=== PATIENT | female | born 1960 | race Caucasian/White ===

== ENCOUNTER 2017-10-07 15:10 | Observation (INO) | payer OTHER ==
[~2017-10-07] VITALS: Ht 160 cm; Wt 115.2 kg
[~2017-10-07 15:10] MED LIST: GABAPENTIN100 MG PO; HAIR, SKIN & N1 EACH PO; MULTI-VITAMIN1 EACH PO; PANTOPRAZOLE SO40 MG PO; PROZAC20 MG PO; VITAMIN C1000 MG PO; VITAMIN E400 UNI2 PO
[2017-10-07] MEDS ORDERED: ASPIRIN 81 MG CHEW TAB PO ONE ×3 (15:30→19:30)
[2017-10-07] MEDS ORDERED: NITROGLYCERIN 0.4 MG SUBL SL PRN ×2 (15:45→19:30)
[2017-10-07 15:46] LABS: BASOPHILS # (AUTO) 0.1 (0.0-0.1); EOSINOPHILS # (AUTO) 0.2 (0.0-0.4); EOSINOPHILS % 2.2 % (0.0-6.0); HEMATOCRIT 40.8 % (34.2-44.1); HEMOGLOBIN 13.9 g/dL (12.0-16.0); LYMPHOCYTES # (AUTO) 2.5 (1.0-3.2); LYMPHOCYTES % 27.8 % (18.0-39.1); MEAN CORPUSCULAR HEMOGLOBIN 33.2 pg (28-32); MEAN CORPUSCULAR HGB CONC 34.1 g/dL (31-35); MEAN CORPUSCULAR VOLUME 97.4 fL (81-99); MONOCYTES # (AUTO) 1.1 (0.2-0.8); MONOCYTES % 12.1 % (4.4-11.3); NEUTROPHILS # (AUTO) 5.2 (2.1-6.9); NEUTROPHILS % 56.7 % (38.7-80.0); PLATELET COUNT 298 x10e3/uL (140-360); RED BLOOD COUNT 4.19 x10e6/uL (3.6-5.1)
[2017-10-07 15:54] LABS: INR 0.82; PARTIAL THROMBOPLASTIN TIME 25.8 seconds (23.8-35.5); PROTHROMBIN TIME 11.7 seconds (11.9-14.5)
[2017-10-07 16:02] LABS: ALANINE AMINOTRANSFERASE 29 IU/L (0-55); ALBUMIN 3.8 g/dL (3.5-5.0); ALBUMIN/GLOBULIN RATIO 0.9 (0.8-2.0); ALKALINE PHOSPHATASE 114 IU/L (40-150); BLOOD UREA NITROGEN 16 mg/dL (7-26); BUN/CREATININE RATIO 20 (6-25); CALCIUM 9.7 mg/dL (8.4-10.2); CARBON DIOXIDE 28 mmol/L (22-29); CHLORIDE 107 mmol/L (98-107); CREATINE KINASE 100 IU/L (29-168); CREATININE, SERUM 0.81 mg/dL (0.57-1.11); EST GLOMERULAR FILTRATION RATE > 60 ML/MIN (60-); GLUCOSE 91 mg/dL (74-118); LIPASE 39 U/L (8-78); SODIUM 143 mmol/L (136-145)
--- NOTE | 2017-10-07 16:22 | Diagnostic Imaging Report ---
PROCEDURE: Frontal and lateral views of the chest. COMPARISON: None. INDICATIONS: SOB, LIGHTHEADED FINDINGS: Lines/tubes: None. Lungs: The lungs are well inflated and clear. There is no evidence of pneumonia or pulmonary edema. Pleura: There is no pleural effusion or pneumothorax. Heart and mediastinum: The heart and the mediastinum are normal. Bones: No acute bony abnormality. IMPRESSION: 1. No acute cardiopulmonary abnormality. Arden Barron M.D. Dictated by: Arden Barron M.D. on 10/07/2017 at 16:30 Electronically approved by: Arden Barron M.D. on 10/07/2017 at 16:30
[2017-10-07] MEDS ORDERED: ONDANSETRON HCL INJ 2 MG/ML VIAL IV STA (16:53)
[2017-10-07] MEDS ORDERED: MORPHINE SULFATE 5 MG/ML VIAL IV PRN (17:00)
[2017-10-07 18:14] LABS: CREATINE KINASE MB 1.1 ng/mL (0.00-5.00)
[2017-10-07] MEDS ORDERED: SODIUM CHLORIDE FLUSH 10 ML SYR INJ PRN (19:30)
[2017-10-07] MEDS: METOPROLOL TARTRATE 25 MG TAB PO SCH (20:26)
[2017-10-07 21:00] VITALS: BP 120/78
[2017-10-07 22:12] VITALS: BP 120/78
[2017-10-07] MEDS ORDERED: FLUOXETINE HCL 20 MG CAP PO ONE (22:15)
[2017-10-07] MEDS ORDERED: PANTOPRAZOLE SOD 40 MG TABEC PO ONE (22:15)
[2017-10-07] MEDS: MORPHINE SULFATE 5 MG/ML VIAL IV PRN (22:46)
[2017-10-08] VITALS: BP 110/54
[2017-10-08 01:41] LABS: CREATINE KINASE MB 0.8 ng/mL (0.00-5.00)
[2017-10-08] MEDS: MORPHINE SULFATE 5 MG/ML VIAL IV PRN ×5 (02:31→22:48)
[2017-10-08 04:00] VITALS: BP 97/55
[2017-10-08 06:22] LABS: BASOPHILS # (AUTO) 0.1 (0.0-0.1); BASOPHILS % 1.3 % (0.0-1.0); EOSINOPHILS # (AUTO) 0.2 (0.0-0.4); EOSINOPHILS % 3.3 % (0.0-6.0); HEMATOCRIT 36.9 % (34.2-44.1); HEMOGLOBIN 12.3 g/dL (12.0-16.0); LYMPHOCYTES # (AUTO) 2.3 (1.0-3.2); LYMPHOCYTES % 37.9 % (18.0-39.1); MEAN CORPUSCULAR HEMOGLOBIN 32.9 pg (28-32); MEAN CORPUSCULAR HGB CONC 33.3 g/dL (31-35); MEAN CORPUSCULAR VOLUME 98.7 fL (81-99); MONOCYTES # (AUTO) 0.8 (0.2-0.8); MONOCYTES % 13.8 % (4.4-11.3); NEUTROPHILS # (AUTO) 2.7 (2.1-6.9); NEUTROPHILS % 43.5 % (38.7-80.0); PLATELET COUNT 266 x10e3/uL (140-360); RED BLOOD COUNT 3.74 x10e6/uL (3.6-5.1); RED CELL DISTRIBUTION WIDTH 13.2 % (11.7-14.4)
[2017-10-08 06:44] LABS: ALANINE AMINOTRANSFERASE 23 IU/L (0-55); ALBUMIN 3.3 g/dL (3.5-5.0); ALBUMIN/GLOBULIN RATIO 0.9 (0.8-2.0); ALKALINE PHOSPHATASE 92 IU/L (40-150); ANION GAP 12.3 mmol/L (8-16); BLOOD UREA NITROGEN 20 mg/dL (7-26); BUN/CREATININE RATIO 25 (6-25); CALCIUM 9.4 mg/dL (8.4-10.2); CARBON DIOXIDE 27 mmol/L (22-29); CHLORIDE 107 mmol/L (98-107); CHOL/HDL RATIO 2.6 (3.0-3.6); CHOLESTEROL 177 MD/DL (0-199); CREATININE, SERUM 0.81 mg/dL (0.57-1.11); EST GLOMERULAR FILTRATION RATE > 60 ML/MIN (60-); GLUCOSE 88 mg/dL (74-118); HDL CHOLESTEROL 69 MG/DL (40-60); LDL CHOLESTEROL 98 MG/DL (60-130); POTASSIUM 4.3 mmol/L (3.5-5.1); SODIUM 142 mmol/L (136-145); TRIGLYCERIDES 49 MG/DL (0-149)
[2017-10-08 07:06] LABS: CHOL/HDL RATIO 2.6 (3.0-3.6)
[2017-10-08] MEDS: METOPROLOL TARTRATE 25 MG TAB PO SCH ×2 (07:30→21:00)
[2017-10-08 07:48] VITALS: BP 104/48
--- NOTE | 2017-10-08 08:10 | History and Physical ---
PRIMARY CARE PHYSICIAN: Dr. Milsl. HIGH PRESSURE OPERATOR: Dr. Agustin. CHIEF COMPLAINT: Chest pain. HISTORY OF PRESENT ILLNESS: This is a 57-year-old woman with a history of gastritis and GERD, who also has had neuropathy of the left leg with some discomfort in the left-side back region and now developing substernal chest pain/chest palpitation also described as heaviness with associated shortness of breath and dizziness. Her last stress test was in 2014, which she states was negative. Cardiac enzymes obtained here are negative x2. Her LDL is 98. Triglyceride is 49. She is admitted for further evaluation and management. PAST MEDICAL HISTORY: Gastritis, GERD, lower extremity neuropathy, obesity status post gastric sleeve, generalized anxiety disorder. PAST SURGICAL HISTORY: Cholecystectomy, hysterectomy, gastric sleeve. ALLERGIES: PER THE ELECTRONIC MEDICAL RECORDS. FAMILY HISTORY/SOCIAL HISTORY: Patient is . She has 2 children. No alcohol, illicit drugs or cigarettes. MEDICATIONS: Per the electronic medical records. Reviewed. REVIEW OF SYSTEMS: Denies any leg pain. Denies any fever, chills, sweats. VITAL SIGNS: Have been reviewed. PHYSICAL EXAMINATION GENERAL APPEARANCE: A tired-appearing woman resting in bed. HEENT: Anicteric. Pupils responsive to light. No oral lesions. CARDIOVASCULAR: Normal S1/S2. LUNGS: Moderate breath sounds, no wheezing. ABDOMEN: She has epigastric tenderness with deep palpation. No rebound or guarding. EXTREMITIES: No edema or calf tenderness. NEUROLOGICALLY: Alert and oriented x3. Moving all extremities. SKIN: Dry. PSYCHIATRIC: Normal affect. LABS: Reviewed. ASSESSMENT AND PLAN: This is a 57-year-old woman. 1. Substernal chest pain. Cardiac enzymes are negative x2. LDL is 98 and triglyceride 49. She has had a stress test about 3 years ago, which she states was negative. This likely could be gastritis-related or GERD-related. However, considering that it is substernal and associated with dizziness and shortness of breath, we will consult Cardiology and obtain 2-D echocardiogram. If these tests are negative, patient will need to follow up outpatient with a stave bolt equalizer. 2. Gastritis/gastroesophageal reflux disease. We will continue PPI. We will add sucralfate and TUMS. 3. Epigastric discomfort. Likely gastritis and GERD. Will treat as noted above. 4. Morbid obesity. BMI 45.0. She has had a gastric sleeve in the past. Will obtain a lipid panel and hemoglobin A1c. 5. Generalized anxiety disorder. Continue Prozac. 6. Neuropathy. Continue gabapentin. 7. Prophylaxis. PPI and Lovenox. 8. Disposition. Cardiology consultation and echocardiogram. Job#: [id number] EV
[2017-10-08] MEDS: ASPIRIN 81 MG ENTERIC COATED PO SCH (08:37)
[2017-10-08] MEDS: PANTOPRAZOLE SOD 40 MG TABEC PO SCH (08:37)
[2017-10-08] MEDS: FAMOTIDINE 20 MG/2 ML VIAL IV SCH ×2 (08:37→17:44)
[2017-10-08] MEDS: SUCRALFATE 1 GM TAB PO SCH ×4 (08:37→21:00)
[2017-10-08] MEDS: GABAPENTIN 100 MG CAP PO SCH (08:37)
[2017-10-08] MEDS: FLUOXETINE HCL 20 MG CAP PO SCH (08:37)
[2017-10-08] MEDS: MULTIVITAMINS/MINERALS TAB PO SCH (08:37)
[2017-10-08] MEDS: CALCIUM CARBONATE 500 MG CHEWABLE TABS PO SCH ×3 (08:37→21:00)
[2017-10-08 11:48] VITALS: BP 109/56
[2017-10-08 11:57] LABS: CREATINE KINASE MB 1.3 ng/mL (0.00-5.00)
[2017-10-08] MEDS: ONDANSETRON HCL INJ 2 MG/ML VIAL IV PRN ×2 (12:05→17:06)
--- NOTE | 2017-10-08 14:39 | Consultation ---
DATE OF CONSULTATION: October 08, 2017 CARDIOLOGY CONSULTATION REASON FOR CONSULTATION: Chest pain and palpitations. HISTORY OF PRESENT ILLNESS: Ms. Villagran is a 57-year-old female without any significant cardiac problems, nonsmoker, who comes in with almost constant pain for the last 3 days in her chest. She is saying it is worse when she moves her chest from side to side or lies down. Her cardiac enzymes are negative. She had a stress test done 2 years ago which was normal. PAST MEDICAL HISTORY: As listed above. Additionally, the patient has obesity, history of status post gastric sleeve, anxiety disorder and reflux disease. SURGICAL HISTORY: Includes cholecystectomy, gastric sleeve and hysterectomy. REVIEW OF SYSTEMS: Negative except as dictated in the history of present illness. PHYSICAL EXAMINATION: VITALS: Afebrile. Heart rate 71. Blood pressure 104/48. O2 sat is 95%. CARDIOVASCULAR: Regular rhythm. No murmurs or gallops. LUNGS: Clear to auscultation bilaterally. ABDOMEN: Soft, mildly distended. Telemetry shows sinus rhythm. EKG shows sinus rhythm. Chest x-ray is normal. Cardiac enzymes are negative. Remaining labs were reviewed. ASSESSMENT: Atypical chest pain. RECOMMENDATION: Ms. Villagran has been ruled out for myocardial infarction. She plans to follow up in the office for further evaluation including outpatient nuclear stress test as well as echocardiogram. I thank Dr. Jenkins for this consultation. Job#: [id number] EV
[2017-10-08 15:57] VITALS: BP 156/76
[2017-10-08] MEDS ORDERED: ENOXAPARIN SOD INJ 40 MG/0.4 ML SYR SC SCH (17:00)
[2017-10-08] MEDS ORDERED: ACETAMIN/BUTALBITAL/CAFFEINE TAB PO PRN (18:00)
[2017-10-08 20:00] VITALS: BP 143/65
[2017-10-09] VITALS: BP 111/56
[2017-10-09 00:43] VITALS: BP 143/65
[2017-10-09 04:00] VITALS: BP 110/58
[2017-10-09] MEDS: METOPROLOL TARTRATE 25 MG TAB PO SCH (07:30)
[2017-10-09 08:14] VITALS: BP 88/54
[2017-10-09] MEDS: MULTIVITAMINS/MINERALS TAB PO SCH (09:00)
[2017-10-09] MEDS: SUCRALFATE 1 GM TAB PO SCH (09:00)
[2017-10-09] MEDS: PANTOPRAZOLE SOD 40 MG TABEC PO SCH (09:01)
[2017-10-09] MEDS: GABAPENTIN 100 MG CAP PO SCH (09:01)
[2017-10-09] MEDS: ASPIRIN 81 MG ENTERIC COATED PO SCH (09:01)
[2017-10-09] MEDS: FAMOTIDINE 20 MG/2 ML VIAL IV SCH (09:01)
[2017-10-09] MEDS: CALCIUM CARBONATE 500 MG CHEWABLE TABS PO SCH (09:04)
[2017-10-09] MEDS: FLUOXETINE HCL 20 MG CAP PO SCH (09:16)
[2017-10-09] MEDS ORDERED: ASPIRIN EC81 MG PO (09:22)
[2017-10-09] MEDS ORDERED: CARAFATE1 GM PO (09:22)
[2017-10-09] MEDS ORDERED: LOPRESSOR25 MG PO (09:22)
[2017-10-09] MEDS ORDERED: Calcium Carbonate 500MG Chew PO (09:22)
[2017-10-09 10:08] VITALS: BP 88/54
--- NOTE | 2017-10-26 09:10 | Discharge Summary ---
PRINCIPAL DIAGNOSES: 1. Atypical chest pain. 2. Gastritis. 3. Gastroesophageal reflux disease. 4. Epigastric discomfort. 5. Morbid obesity. Body mass index 45.0. 6. Generalized anxiety. 7. Neuropathy. SECONDARY DIAGNOSIS: Gastroesophageal reflux disease. CHIEF COMPLAINT: Chest pain. HISTORY OF PRESENT ILLNESS: This is a 57-year-old woman developing chest pain. Please refer to the H and P for further details. HOSPITAL COURSE: Patient had substernal chest pain. Cardiac enzymes were negative. LDL 98, triglycerides 49. Patient had stress test 3 years ago. Patient also has gastritis and GERD symptoms with epigastric discomfort, received sucralfate and PPI and Tums. Patient had morbid obesity, BMI 45.0. Also had generalized anxiety, treated with Prozac. Evaluated by cardiology and recommended for followup outpatient for echocardiogram and stress testing. Hemoglobin A1c was 5.1, does not have diabetes. LDL was 99. CONDITION ON DISCHARGE: Stable and improving. DISCHARGE LOCATION: Home. FOLLOWUP: 1. With primary care doctor in [address] Parish of cardiology in 1 week. 3. Followup stress test and echocardiogram. NARDA YUSUF MD Job#: [id number]
== END 2017-10-09 10:42 | disposition home or self-care (01) ==
LOC: ER 15:10 → ERHOLD 19:34 → MED/SURG 20:29
PROVIDERS: ADMIT Internal Medicine; ATTEND Internal Medicine
DX: R07.89 Other chest pain (principal); R00.2 Palpitations; K29.70 Gastritis, unspecified, without bleeding; K21.9 Gastro-esophageal reflux disease without esophagitis; G57.82 Other specified mononeuropathies of left lower limb; E66.01 Morbid (severe) obesity due to excess calories; F41.1 Generalized anxiety disorder; Z68.42 Body mass index [BMI] 45.0-49.9, adult; Z98.84 Bariatric surgery status
CPT/HCPCS: 36415 ×2; 71046; 80053 ×2; 80061; 82550 ×2; 82553 ×2; 83036; 83690; 83880; 84484 ×2; 85025 ×2; 85610; 85730; 87400; 93005; 93306 ×2; 99284; G0378 ×3; J1650; J2270 ×2; J2405 ×2

== ENCOUNTER 2018-01-18 08:42 | Emergency (ER) | payer OTHER ==
[~2018-01-18] VITALS: Ht 160 cm; Wt 115.2 kg
[~2018-01-18 08:42] MED LIST changes: +ASPIRIN EC81 MG PO; +CARAFATE1 GM PO; +Calcium Carbonate 500MG Chew PO; +LOPRESSOR25 MG PO
--- OUTSIDE RECORDS SUMMARY | 2018-01-18 08:46 | XMS REPORT ---
Author Author [facility] Address Unknown Phone Unavailable Care Team Providers Care Pigment Processor Name Role Phone BRENDEN STONE Unavailable Unavailable Problems This patient has no known problems. Allergies, Adverse Reactions, Alerts This patient has no known allergies or adverse reactions. Medications This patient has no known medications. Results Test Description Test Time Test Comments Text Results Atomic Results Result Comments CHEST 2 VIEWS [place] [address] Patient Name: ISAI VEGA MR #: [id number] : 1960 Age/Sex: 57/F Req #: [id number] Adm Physician: Ordered by: BRENDEN STONE MD Report #: [id number] Location: ER Room/Bed: Procedure: [id number] DX/CHEST 2 VIEWS Exam Date: 10/07/17 Exam Time: 1550 REPORT STATUS: Signed PROCEDURE: Frontal and lateral views of the chest. COMPARISON: None. INDICATIONS: SOB, LIGHTHEADED FINDINGS: Lines/tubes: None. Lungs: The lungs are well inflated and clear. There is no evidence of pneumonia or pulmonary edema. Pleura : There is no pleural effusion or pneumothorax. Heart and mediastinum: The heart and the mediastinum are normal. Bones: No acute bony abnormality. IMPRESSION: 1. No acute cardiopulmonary abnormality. Vanesa Barron M.D. Dictated by: Vanesa Barron M.D. on 10/07/2017 at 16:30 Electronically approved by: Vanesa Barron M.D. on 10/07/2017 at 16:30 Dictated By: VANESA BARRON MD 1630 Transcribed By: KEYONNA on 10/07/17 1630 COPY TO: BRENDEN STONE MD
--- OUTSIDE RECORDS SUMMARY | 2018-01-18 08:46 | XMS REPORT | Clinical Summary ---
Author Author [facility] Address Unknown Phone Unavailable Care Team Providers Care Sliver Handler Name Role Phone Aksah Mills MD PCP Allergies Not on File Current Medications Not on file Active Problems Not on file Encounters Date Type Specialty Care Team Description 11/04/2017 [facility] Radiology Stas Weber MD Radiculopathy, Encounter unspecified spinal region 11/04/2017 [facility] Radiology Stas Weber MD Lumbar radiculopathy; Encounter Cervical radiculitis 11/04/2017 [facility] Radiology Stas Weber MD Lumbar radiculopathy; Encounter Cervical radiculitis 11/04/2017 [facility] Radiology Stas Weebr MD Brachial neuritis Encounter 11/04/2017 Ancillary Access Stas Weber MD Brachial neuritis Orders 11/04/2017 Transcribe Stas Perkins MD Brachial neuritis Orders (Primary Dx) 11/04/2017 Transcribe Stas Perkins MD Radiculopathy, Orders unspecified spinal region (Primary Dx) 10/26/2017 Procedure Pass Radiology 10/26/2017 Procedure Pass Radiology 10/26/2017 Transcribe Stas Perkins MD Lumbar radiculopathy Orders (Primary Dx); Cervical radiculitis after 01/17/2017 Social History Tobacco Use Types Packs/Day Years Used Date Never Assessed Sex Assigned at Date Recorded Not on file Last Filed Vital Signs Vital Sign Reading Time Taken Blood Pressure - - Pulse - - Temperature - - Respiratory Rate - - Oxygen Saturation - - Inhaled Oxygen - - Concentration Weight 113 kg (250 lb) 11/04/2017 7:55 AM FLAT MACHINE CUTTER Height - - Body Mass Index - - Plan of Treatment Health Maintenance Due Date Last Done Comments PAP SMEAR 1982 COLONOSCOPY 2011 MAMMOGRAM 2011 SHINGRIX VACCINE (#1) 2011 INFLUENZA VACCINE 04/19/2018 Results * XR Lumbar Spine Complete W Flex and Ext (11/04/2017 9:57 AM) Specimen Performing Laboratory [facility] [address] [place] [address] Narrative Study:XR LUMBAR SPINE COMPLETE W FLEX & EXTEND History:M54.12 Radiculopathycervical region, xr lumbar COMPARISON:None. IMPRESSION: 7 views of the lumbar spine performed to include flexion and extension. The lumbar lordosis is maintained. There are no subluxations. No induced listhesis is present. Vertebral body heights are within normal limits. No severe disc space loss is present. There is some moderate facet arthrosis at L5/S1 bilaterally. Overlying soft tissues are unremarkable. [id number] Procedure Note Hm Interface, Radiology Results Incoming - 11/04/2017 10:25 AM FLAT MACHINE CUTTER Study:XR LUMBAR SPINE COMPLETE W FLEX & EXTEND History:M54.12 Radiculopathy cervical region, xr lumbar COMPARISON:None. IMPRESSION: 7 views of the lumbar spine performed to include flexion and extension. The lumbar lordosis is maintained. There are no subluxations. No induced listhesis is present. Vertebral body heights are within normal limits. No severe disc space loss is present. There is some moderate facet arthrosis at L5/S1 bilaterally. Overlying soft tissues are unremarkable. [id number] * XR Cervical Spine Ap Lateral Flexion And Extension (11/04/2017 9:54 AM) Specimen Performing Laboratory [address] [address] Narrative Study:XR CERVICAL SPINE AP LATERAL FLEXION AND EXTENSION History:M54.10 Radiculopathysite unspecified, xr cervical COMPARISON:None. IMPRESSION: 7 views of the cervical spine to include flexion and extension. There is some mild reversal of the cervical lordosis may be related to degenerative change. There is a minimal 1.5 mg anterolisthesis at C4-5 which do not change on flexion and extension. No induced listhesis are seen. There is moderate disc space loss at C5-6 and C6-7 with anterior endplate of C5 indicating degenerative disc disease. The remaining levels are within the 's. Overlying soft tissues are unremarkable. There are some postoperative changes of the left mandible. [id number] Procedure Note Interface, Radiology Results Incoming - 11/04/2017 10:27 AM FLAT MACHINE CUTTER Study:XR CERVICAL SPINE AP LATERAL FLEXION AND EXTENSION History:M54.10 Radiculopathy site unspecified, xr cervical COMPARISON:None. IMPRESSION: 7 views of the cervical spine to include flexion and extension. There is some mild reversal of the cervical lordosis may be related to degenerative change. There is a minimal 1.5 mg anterolisthesis at C4-5 which do not change on flexion and extension. No induced listhesis are seen. There is moderate disc space loss at C5-6 and C6-7 with anterior endplate of C5 indicating degenerative disc disease. The remaining levels are within the 's. Overlying soft tissues are unremarkable. There are some postoperative changes of the left mandible. [id number] * MRI Lumbar Spine Wo Contrast (11/04/2017 8:41 AM) Specimen Performing Laboratory [facility] [address] [place] [address] Narrative EXAMINATION:MRI LUMBAR SPINE WO CONTRAST CLINICAL HISTORY:M54.16 Radiculopathylumbar region, M54.12 Radiculopathy cervical region, M54.12 COMPARISON:None. FINDINGS: Lowermost functional disc space is assumed to be L5-S1. Lumbar spine alignement is within normal limits No suspicious focal bone marrow lesions. Visualized spinal cord is normal in appearance. Mild disc space narrowing at L3-4. L1-2: No canal or foraminal narrowing. L2-3: No canal or foraminal narrowing. L3-4: No canal or foraminal narrowing. Small posterior disc bulge. L4-5: Mild facet arthropathy. No canal or foraminal narrowing. L5-S1: Bilateral facet arthropathy. Right lateral osteophytosis. No canal or foraminal narrowing. IMPRESSION: Mild multilevel degenerative changes without canal or foraminal narrowing. [id number] Procedure Note Interface, Radiology Results - 11/04/2017 9:36 AM FLAT MACHINE CUTTER EXAMINATION: MRI LUMBAR SPINE WO CONTRAST CLINICAL HISTORY: M54.16 Radiculopathy lumbar region, M54.12 Radiculopathy cervical region, M54.12 COMPARISON: None. FINDINGS: Lowermost functional disc space is assumed to be L5-S1. Lumbar spine alignement is within normal limits No suspicious focal bone marrow lesions. Visualized spinal cord is normal in appearance. Mild disc space narrowing at L3-4. L1-2: No canal or foraminal narrowing. L2-3: No canal or foraminal narrowing. L3-4: No canal or foraminal narrowing. Small posterior disc bulge. L4-5: Mild facet arthropathy. No canal or foraminal narrowing. L5-S1: Bilateral facet arthropathy. Right lateral osteophytosis. No canal or foraminal narrowing. IMPRESSION: Mild multilevel degenerative changes without canal or foraminal narrowing. [id number] * MRI Cervical Spine Wo Contrast (11/04/2017 8:40 AM) Specimen Performing Laboratory [facility] [address] [place] [address] Narrative EXAMINATION:MRI CERVICAL SPINE WO CONTRAST CLINICAL HISTORY:M54.16 Radiculopathylumbar region, M54.12 Radiculopathy cervical region, M54.16 COMPARISON:December 21, 2014 FINDINGS: Mild retrolisthesis at C3-4 and C5-6. Multilevel disc space narrowing and endplate degenerative changes. No suspicious focal bone marrow lesions. Visualized spinal cord is normal in appearance. C2-3: No canal or foraminal narrowing. C3-4: Facet and uncal arthrosis causes mild to moderate left and mild right foraminal narrowing. Posterior osteophyte disc complex causes mild canal narrowing. C4-5: Posterior osteophyte disc complex without significant canal narrowing. Facet and uncal arthrosis causes mild to moderate right and mild left foraminal narrowing. C5-C6: Posterior osteophyte disc complex causes minimal canal narrowing. Facet and uncal arthrosis causes moderate right foraminal narrowing. C6-C7: Posterior osteophyte disc complex without canal narrowing. Facet and uncal arthrosis causes mild to moderate bilateral foraminal narrowing. C7-T1: No canal narrowing. Facet and uncal arthrosis causes mild bilateral foraminal narrowing. IMPRESSION: Overall stable multilevel degenerative changes. No significant central canal narrowing. Mild to moderate multilevel spondylotic foraminal narrowing. [id number] Procedure Note Interface, Radiology Results Incoming - 11/04/2017 9:07 AM FLAT MACHINE CUTTER EXAMINATION: MRI CERVICAL SPINE WO CONTRAST CLINICAL HISTORY: M54.16 Radiculopathy lumbar region, M54.12 Radiculopathy cervical region, M54.16 COMPARISON: December 21, 2014 FINDINGS: Mild retrolisthesis at C3-4 and C5-6. Multilevel disc space narrowing and endplate degenerative changes. No suspicious focal bone marrow lesions. Visualized spinal cord is normal in appearance. C2-3: No canal or foraminal narrowing. C3-4: Facet and uncal arthrosis causes mild to moderate left and mild right foraminal narrowing. Posterior osteophyte disc complex causes mild canal narrowing. C4-5: Posterior osteophyte disc complex without significant canal narrowing. Facet and uncal arthrosis causes mild to moderate right and mild left foraminal narrowing. C5-C6: Posterior osteophyte disc complex causes minimal canal narrowing. Facet and uncal arthrosis causes moderate right foraminal narrowing. C6-C7: Posterior osteophyte disc complex without canal narrowing. Facet and uncal arthrosis causes mild to moderate bilateral foraminal narrowing. C7-T1: No canal narrowing. Facet and uncal arthrosis causes mild bilateral foraminal narrowing. IMPRESSION: Overall stable multilevel degenerative changes. No significant central canal narrowing. Mild to moderate multilevel spondylotic foraminal narrowing. [facility]-[id number] after 01/17/2017 Insurance Payer Benefit Subscriber ID Type Phone Address Plan / Group xxxxxxxxx [facility] [place] [address]
--- OUTSIDE RECORDS SUMMARY | 2018-01-18 08:50 | XMS REPORT | Clinical Summary ---
Author Author [facility] Address Unknown Phone Unavailable Care Team Providers Care Sr. Social Media & Mobile Manager Name Role Phone Akash Mills MD PCP Allergies Not on File Current Medications Not on file Active Problems Not on file Encounters Date Type Specialty Care Team Description 11/04/2017 [facility] Radiology Stas Weber MD Radiculopathy, Encounter unspecified spinal region 11/04/2017 [facility] Radiology Stas Weber MD Lumbar radiculopathy; Encounter Cervical radiculitis 11/04/2017 [facility] Radiology Stas Weber MD Lumbar radiculopathy; Encounter Cervical radiculitis 11/04/2017 [facility] Radiology Stas Weber MD Brachial neuritis Encounter 11/04/2017 Ancillary Access [...] 113 kg (250 lb) 11/04/2017 7:55 AM RACING MANAGER Height - - Body Mass Index - - Plan of Treatment Health Maintenance Due Date Last Done Comments PAP SMEAR 1982 COLONOSCOPY 2011 MAMMOGRAM 2011 SHINGRIX VACCINE (#1) 2011 INFLUENZA VACCINE 04/19/2018 Results * XR Lumbar Spine Complete W Flex and Ext (11/04/2017 9:57 AM) Specimen Performing Laboratory [facility] [address] [place] [address] Narrative Study:XR LUMBAR SPINE COMPLETE W FLEX [...] L5/S1 bilaterally. Overlying soft tissues are unremarkable. [id number] Procedure Note Hm Interface, Radiology Results Incoming - 11/04/2017 10:25 AM RACING MANAGER Study:XR LUMBAR SPINE COMPLETE W FLEX & [...] L5/S1 bilaterally. Overlying soft tissues are unremarkable. [id number] * XR Cervical Spine Ap Lateral Flexion And Extension (11/04/2017 9:54 AM) Specimen Performing Laboratory [address] [address] Narrative Study:XR CERVICAL SPINE AP LATERAL FLEXION [...] some postoperative changes of the left mandible. [id number] Procedure Note Interface, Radiology Results Incoming - 11/04/2017 10:27 AM RACING MANAGER Study:XR CERVICAL SPINE AP LATERAL FLEXION AND [...] some postoperative changes of the left mandible. [id number] * MRI Lumbar Spine Wo Contrast (11/04/2017 8:41 AM) Specimen Performing Laboratory [facility] [address] [place] [address] Narrative EXAMINATION:MRI LUMBAR SPINE WO CONTRAST CLINICAL [...] degenerative changes without canal or foraminal narrowing. [id number] Procedure Note Interface, Radiology Results - 11/04/2017 9:36 AM RACING MANAGER EXAMINATION: MRI LUMBAR SPINE WO CONTRAST CLINICAL [...] degenerative changes without canal or foraminal narrowing. [id number] * MRI Cervical Spine Wo Contrast (11/04/2017 8:40 AM) Specimen [facility] [address] [place] [address] Narrative EXAMINATION:MRI CERVICAL SPINE WO CONTRAST CLINICAL [...] Mild to moderate multilevel spondylotic foraminal narrowing. [id number] Procedure Note Interface, Radiology Results Incoming - 11/04/2017 9:07 AM RACING MANAGER EXAMINATION: MRI CERVICAL SPINE WO CONTRAST CLINICAL [...] Mild to moderate multilevel spondylotic foraminal narrowing. [facility]-[id number] after 01/17/2017 Insurance Payer Benefit Subscriber ID Type Phone Address Plan / Group xxxxxxxxx [facility] [address]
[2018-01-18] MEDS ORDERED: KETOROLAC TROMETHAMINE 30 MG/ML VIAL IV STA (09:39)
[2018-01-18] MEDS ORDERED: ONDANSETRON HCL 4 MG ORAL DISINTEGRATING TAB PO ONE (09:45)
[2018-01-18] MEDS ORDERED: MORPHINE SULFATE 4 MG/ML SYR IV PRN (09:45)
[2018-01-18 09:46] LABS: BASOPHILS # (AUTO) 0.1 (0.0-0.1); BASOPHILS % 1.3 % (0.0-1.0); EOSINOPHILS # (AUTO) 0.1 (0.0-0.4); HEMATOCRIT 38.2 % (34.2-44.1); HEMOGLOBIN 13.4 g/dL (12.0-16.0); LYMPHOCYTES # (AUTO) 1.9 (1.0-3.2); LYMPHOCYTES % 26.8 % (18.0-39.1); MEAN CORPUSCULAR HGB CONC 35.1 g/dL (31-35); MEAN CORPUSCULAR VOLUME 94.1 fL (81-99); MONOCYTES # (AUTO) 0.7 (0.2-0.8); NEUTROPHILS # (AUTO) 4.3 (2.1-6.9); NEUTROPHILS % 59.8 % (38.7-80.0); PLATELET COUNT 317 x10e3/uL (140-360); RED BLOOD COUNT 4.06 x10e6/uL (3.6-5.1); RED CELL DISTRIBUTION WIDTH 13.1 % (11.7-14.4)
[2018-01-18] MEDS ORDERED: MORPHINE SULFATE 2 MG/ML SYR IV PRN (10:00)
[2018-01-18 10:03] LABS: BILIRUBIN,URINE NEGATIVE (NEGATIVE); CLARITY,URINE CLEAR (CLEAR); COLOR,URINE YELLOW (YELLOW); KETONES,URINE NEGATIVE (NEGATIVE); LEUKOCYTE ESTERASE ,URINE NEGATIVE (NEGATIVE); NITRITE,URINE NEGATIVE (NEGATIVE); PROTEIN,URINE DIPSTICK NEGATIVE (NEGATIVE); URINE UROBILINOGEN 0.2 mg/dL (0.2 - 1)
[2018-01-18 10:17] LABS: EPITHELIAL CELLS,URINE FEW /LPF
[2018-01-18 10:20] LABS: ALANINE AMINOTRANSFERASE 25 IU/L (0-55); ALBUMIN 3.5 g/dL (3.5-5.0); ALBUMIN/GLOBULIN RATIO 0.9 (0.8-2.0); ALKALINE PHOSPHATASE 89 IU/L (40-150); ANION GAP 12.2 mmol/L (8-16); BLOOD UREA NITROGEN 15 mg/dL (7-26); BUN/CREATININE RATIO 19 (6-25); CALCIUM 9.6 mg/dL (8.4-10.2); CARBON DIOXIDE 25 mmol/L (22-29); CHLORIDE 104 mmol/L (98-107); CREATINE KINASE 97 IU/L (29-168); CREATININE, SERUM 0.79 mg/dL (0.57-1.11); EST GLOMERULAR FILTRATION RATE > 60 ML/MIN (60-); GLUCOSE 88 mg/dL (74-118); LIPASE 51 U/L (8-78); POTASSIUM 4.2 mmol/L (3.5-5.1); SODIUM 137 mmol/L (136-145)
--- NOTE | 2018-01-18 11:06 | Diagnostic Imaging Report ---
PROCEDURE: CT ABDOMEN AND PELVIS WITHOUT CONTRAST TECHNIQUE: The abdomen and pelvis were scanned utilizing a multidetector helical scanner from the diaphragm to the lesser trochanter. No IV contrast was administered as per physician request. Coronal and sagittal multiplanar reformations were obtained. COMPARISON: None. INDICATIONS: LEFT FLANK PAIN FINDINGS: ABSENCE OF INTRAVENOUS CONTRAST DECREASES SENSITIVITY FOR DETECTION OF FOCAL LESIONS AND VASCULAR PATHOLOGY. LOWER THORAX: Normal. HEPATOBILIARY: No focal hepatic lesions. No biliary ductal dilatation. Cholecystectomy clips. SPLEEN: No spleen is visualized. Splenule is present in the left upper quadrant, series 3 image 31. PANCREAS: No focal masses or ductal dilatation. ADRENALS: No adrenal nodules. KIDNEYS/URETERS: No hydronephrosis, stones, or solid mass lesions. PELVIC ORGANS/BLADDER: Hysterectomy. No ovaries are visualized. Normal urinary bladder. PERITONEUM / RETROPERITONEUM: No free air or fluid. LYMPH NODES: No lymphadenopathy. VESSELS: Unremarkable. GI TRACT: Postoperative changes of the stomach. No distention or wall thickening. No appendix is visualized. Multiple diverticuli are present in the descending and sigmoid colon, without adjacent soft tissue inflammatory changes. BONES AND SOFT TISSUES: Unremarkable. Degenerative changes of the thoracic spine. IMPRESSION: No acute abnormality of the abdomen and pelvis. Diverticulosis without evidence of diverticulitis. Dictated by: Gregory March M.D. on 01/18/2018 at 11:07 Electronically approved by: Gregory March M.D. on 01/18/2018 at 11:07
[2018-01-18 12:02] VITALS: BP 105/58
== END 2018-01-18 12:16 | disposition home or self-care (01) ==
LOC: ER 08:48
DX: R10.32 Left lower quadrant pain (principal); M54.16 Radiculopathy, lumbar region; F41.9 Anxiety disorder, unspecified; F32.9 Major depressive disorder, single episode, unspecified; K21.9 Gastro-esophageal reflux disease without esophagitis
CPT/HCPCS: 36415; 74176; 80053; 81001; 82550; 82553; 83690; 84484; 85025; 93005; 99284; J1885; J2270

== ENCOUNTER 2018-04-18 08:38 | Emergency (ER) | payer OTHER ==
[~2018-04-18] VITALS: Ht 160 cm; Wt 122.5 kg
== END 2018-04-18 09:23 | disposition short-term general hospital (02) ==
LOC: ER 08:38
DX: R12 Heartburn (principal)

== ENCOUNTER 2019-02-01 10:14 | Emergency (ER) | payer OTHER ==
[~2019-02-01] VITALS: Ht 160 cm; Wt 122.5 kg
--- OUTSIDE RECORDS SUMMARY | 2019-02-01 10:17 | XMS REPORT | Continuity of Care Document ---
Author Author [facility] [place] Interface Address Unknown Phone Unavailable Problems Problem Status Onset Date Classification Date Reported Comments Source Z87.89 - PERSONAL HISTORY OF NICOTINE D Active 07/07/2017 [facility] [place] Chest pain Active Problem 04/18/2018 [facility] Palpitations Active Problem 04/18/2018 [facility] Medications Medication Details Route Status Patient Instructions Ordering Provider Order Date Source Aspirin (Aspirin Ec) 81 Mg Tablet. Every Morning Active [facility] 10/09/2017 [facility] Calcium Carbonate 500MG Chew 500 Mg Chew Three Times A Day Active [facility] 10/09/2017 [facility] Metoprolol Tartrate (Lopressor) 25 Mg Tab Every 12 Hours Active [facility] 10/09/2017 [facility] Sucralfate (Carafate) 1 Gm Tablet Before Meals And At Bedtime Active [facility] 10/09/2017 [facility] Ascorbic Acid (Vitamin C) 1,000 Mg Tablet Daily Active [facility] Fluoxetine Hcl (Prozac) 20 Mg Capsule Daily Active [facility] Gabapentin 100 Mg Capsule Daily Active [facility] Multivitamin (Multi-Vitamin Daily) 1 Each Tablet Daily Active [facility] Multivitamin With Minerals (Hair, Skin & Nails) 1 Each Tablet Daily Active [facility] Pantoprazole Sodium (Protonix) 40 Mg Tablet. Daily Active [facility] Vitamin E 400 Unit Capsule Daily Active [facility] Allergies, Adverse Reactions, Alerts Substance Category Reaction Severity Reaction type Status Date Reported Comments Source Penicillin RASH Unknown Allergy to Substance Active 04/18/2018 [facility] Codeine NAUSEA Unknown Allergy to Substance Active 04/18/2018 [facility] Celecoxib BURNING Unknown Allergy to Substance Active 04/18/2018 [facility] Immunizations Immunization Date Given Site Status Last Updated Comments Source Results Order Name Results Value Reference Range Date Interpretation Comments Source Automated urine sediment leukocyte count by microscopy (number/high power field) Automated urine sediment leukocyte count by microscopy (number/high power field) NONE 0 - 5 01/18/2018 [facility] Bacteria detection in urine sediment by light microscopy Bacteria detection in urine sediment by light microscopy NONE NONE 01/18/2018 [facility] Epithelial cells detection in urine sediment by light microscopy Epithelial cells detection in urine sediment by light microscopy FEW NONE 01/18/2018 [facility] Erythrocytes detection in urine sediment by light microscopy Erythrocytes detection in urine sediment by light microscopy NONE 0 - 5 01/18/2018 [facility] Specific gravity of Urine by Test strip Specific gravity of Urine by Test strip 1.010 1.010 - 1.025 01/18/2018 [facility] Urine clarity Urine clarity CLEAR CLEAR 01/18/2018 [facility] Urine color determination Urine color determination YELLOW YELLOW 01/18/2018 [facility] Urine erythrocytes detection Urine erythrocytes detection NEGATIVE NEGATIVE 01/18/2018 [facility] Urine glucose detection Urine glucose detection NEGATIVE NEGATIVE 01/18/2018 [facility] Urine ketones detection by automated test strip Urine ketones detection by automated test strip NEGATIVE NEGATIVE 01/18/2018 [facility] Urine leukocyte esterase detection by dipstick Urine leukocyte esterase detection by dipstick NEGATIVE NEGATIVE 01/18/2018 [facility] Urine nitrite detection Urine nitrite detection NEGATIVE NEGATIVE 01/18/2018 [facility] Urine pH measurement by automated test strip Urine pH measurement by automated test strip 7 5 - 7 01/18/2018 [facility] Urine protein measurement by test strip (mass/volume) Urine protein measurement by test strip (mass/volume) NEGATIVE NEGATIVE 01/18/2018 [facility] Urine total bilirubin measurement (mass/volume) Urine total bilirubin measurement (mass/volume) NEGATIVE NEGATIVE 01/18/2018 [facility] Urine urobilinogen measurement by test strip (mass/volume) Urine urobilinogen measurement by test strip (mass/volume) 0.2 0.2 - 1 01/18/2018 [facility] Automated blood basophil count (count/volume) Automated blood basophil count (count/volume) 0.1 0.0 - 0.1 01/18/2018 [facility] Automated blood basophil count as percentage of total leukocytes Automated blood basophil count as percentage of total leukocytes 1.3 0.0 - 1.0 01/18/2018 [facility] Automated blood eosinophil count Automated blood eosinophil count 0.1 0.0 - 0.4 01/18/2018 [facility] Automated blood eosinophil count as percentage of total leukocytes Automated blood eosinophil count as percentage of total leukocytes 2.0 0.0 - 6.0 01/18/2018 [facility] Automated blood hematocrit (volume fraction) Automated blood hematocrit (volume fraction) 38.2 34.2 - 44.1 01/18/2018 [facility] Automated blood lymphocyte count as percentage ot total leukocytes Automated blood lymphocyte count as percentage ot total leukocytes 26.8 18.0 - 39.1 01/18/2018 [facility] Automated blood monocyte count as percentage of total leukocytes Automated blood monocyte count as percentage of total leukocytes 10.0 4.4 - 11.3 01/18/2018 [facility] Automated blood neutrophil count Automated blood neutrophil count 4.3 2.1 - 6.9 01/18/2018 [facility] Automated blood platelet count (count/volume) Automated blood platelet count (count/volume) 317 140 - 360 01/18/2018 [facility] Automated blood segmented neutrophil count as percentage of total leukocytes Automated blood segmented neutrophil count as percentage of total leukocytes 59.8 38.7 - 80.0 01/18/2018 [facility] Automated erythrocyte mean corpuscular hemoglobin (mass per erythrocyte) Automated erythrocyte mean corpuscular hemoglobin (mass per erythrocyte) 33.0 28 - 32 01/18/2018 [facility] Automated erythrocyte mean corpuscular hemoglobin concentration measurement (mass/volume) Automated erythrocyte mean corpuscular hemoglobin concentration measurement (mass/volume) 35.1 31 - 35 01/18/2018 [facility] Automated erythrocyte mean corpuscular volume Automated erythrocyte mean corpuscular volume 94.1 81 - 99 01/18/2018 [facility] Blood erythrocytes automated count (number/volume) Blood erythrocytes automated count (number/volume) 4.06 3.6 - 5.1 01/18/2018 [facility] Blood hemoglobin measurement (moles/volume) Blood hemoglobin measurement (moles/volume) 13.4 12.0 - 16.0 01/18/2018 [facility] Blood leukocytes automated count (number/volume) Blood leukocytes automated count (number/volume) 7.17 4.8 - 10.8 01/18/2018 [facility] Blood lymphocytes count (number/volume) Blood lymphocytes count (number/volume) 1.9 1.0 - 3.2 01/18/2018 [facility] Blood monocytes automated count (number/volume) Blood monocytes automated count (number/volume) 0.7 0.2 - 0.8 01/18/2018 [facility] Estimated glomerular filtration rate (GFR) determination Estimated glomerular filtration rate (GFR) determination null 60 01/18/2018 [facility] Glucose measurement Glucose measurement 88 74 - 118 01/18/2018 [facility] Plasma globulin measurement (mass/volume) Plasma globulin measurement (mass/volume) 3.9 2.3 - 3.5 01/18/2018 [facility] Serum or plasma alanine aminotransferase measurement (enzymatic activity/volume) Serum or plasma alanine aminotransferase measurement (enzymatic activity/volume) 25 0 - 55 01/18/2018 [facility] Serum or plasma albumin measurement (mass/volume) Serum or plasma albumin measurement (mass/volume) 3.5 3.5 - 5.0 01/18/2018 [facility] Serum or plasma albumin/globulin mass ratio Serum or plasma albumin/globulin mass ratio 0.9 0.8 - 2.0 01/18/2018 [facility] Serum or plasma alkaline phosphatase measurement (enzymatic activity/volume) Serum or plasma alkaline phosphatase measurement (enzymatic activity/volume) 89 40 - 150 01/18/2018 [facility] Serum or plasma anion gap Serum or plasma anion gap 12.2 8 - 16 01/18/2018 [facility] Serum or plasma calcium measurement (mass/volume) Serum or plasma calcium measurement (mass/volume) 9.6 8.4 - 10.2 01/18/2018 [facility] Serum or plasma carbon dioxide, total measurement (moles/volume) Serum or plasma carbon dioxide, total measurement (moles/volume) 25 22 - 29 01/18/2018 [facility] Serum or plasma chloride measurement (moles/volume) Serum or plasma chloride measurement (moles/volume) 104 98 - 107 01/18/2018 [facility] Serum or plasma creatine kinase MB measurement (mass/volume) Serum or plasma creatine kinase MB measurement (mass/volume) 1.60 0 - 5.0 01/18/2018 [facility] Serum or plasma creatine kinase measurement (enzymatic activity/volume) Serum or plasma creatine kinase measurement (enzymatic activity/volume) 97 29 - 168 01/18/2018 [facility] Serum or plasma creatinine measurement (mass/volume) Serum or plasma creatinine measurement (mass/volume) 0.79 0.57 - 1.11 01/18/2018 [facility] Serum or plasma lipase measurement (enzymatic activity/volume) Serum or plasma lipase measurement (enzymatic activity/volume) 51 8 - 78 01/18/2018 [facility] Serum or plasma potassium measurement (moles/volume) Serum or plasma potassium measurement (moles/volume) 4.2 3.5 - 5.1 01/18/2018 [facility] Serum or plasma protein measurement (mass/volume) Serum or plasma protein measurement (mass/volume) 7.4 6.5 - 8.1 01/18/2018 [facility] Serum or plasma sodium measurement (moles/volume) Serum or plasma sodium measurement (moles/volume) 137 136 - 145 01/18/2018 [facility] Serum or plasma total bilirubin measurement (mass/volume) Serum or plasma total bilirubin measurement (mass/volume) 0.5 0.2 - 1.2 01/18/2018 [facility] Serum or plasma urea nitrogen measurement (mass/volume) Serum or plasma urea nitrogen measurement (mass/volume) 15 7 - 26 01/18/2018 [facility] Serum or plasma urea nitrogen/creatinine mass ratio Serum or plasma urea nitrogen/creatinine mass ratio 19 6 - 25 01/18/2018 [facility] Troponin I measurement by highly sensitive enzyme immunoassay Troponin I measurement by highly sensitive enzyme immunoassay null 0 - 0.300 01/18/2018 [facility] Red Cell Distribution Width 13.1 11.7 - 14.4 01/18/2018 [facility] IM GRANULOCYTES % 0.1 0.0 - 1.0 01/18/2018 [facility] Absolute Immature Granulocyte (auto 0.01 0 - 0.1 01/18/2018 [facility] Aspartate Amino Transf (AST/SGOT) 27 5 - 34 01/18/2018 [facility] Serum or plasma cholesterol in HDL measurement (mass/volume) Serum or plasma cholesterol in HDL measurement (mass/volume) 69 40 - 60 10/08/2017 [facility] Serum or plasma cholesterol in LDL measurement (mass/volume) Serum or plasma cholesterol in LDL measurement (mass/volume) 99 60 - 130 10/08/2017 [facility] Serum or plasma cholesterol measurement (mass/volume) Serum or plasma cholesterol measurement (mass/volume) 178 0 - 199 10/08/2017 [facility] Serum or plasma total cholesterol/cholesterol in HDL mass ratio Serum or plasma total cholesterol/cholesterol in HDL mass ratio 2.6 3.0 - 3.6 10/08/2017 [facility] Serum or plasma triglyceride measurement (mass/volume) Serum or plasma triglyceride measurement (mass/volume) 50 0 - 149 10/08/2017 [facility] Hemoglobin A1c Percent 5.1 4.0 - 7.0 10/08/2017 [facility] Influenza virus A and B antigen identification by immunofluorescence Influenza virus A and B antigen identification by immunofluorescence NEGATIVE NEGATIVE 10/07/2017 [facility] Activated partial thromboplastin time (aPTT) in platelet poor plasma bycoagulation assay Activated partial thromboplastin time (aPTT) in platelet poor plasma bycoagulation assay 25.8 23.8 - 35.5 10/07/2017 [facility] INR in Platelet poor plasma by Coagulation assay INR in Platelet poor plasma by Coagulation assay 0.82 10/07/2017 [facility] Prothrombin time (PT) in platelet poor plasma by coagulation assay Prothrombin time (PT) in platelet poor plasma by coagulation assay 11.7 11.9 - 14.5 10/07/2017 [facility] B-Type Natriuretic Peptide 14.5 0 - 100 10/07/2017 [facility] Chest w contrast CT Chest w contrast CT Clinical Indication: J98.4 Other disorders of lung - J98.4 Other disorders of lung. Comparison: None. TECHNIQUE: Sequential trans-axial images were obtained thru the chest and upper abdomen after administration of iodinated contrast. Coronal and sagittal reconstructions were obtained. CT imaging was performed with exposure control parameters to reduce radiation dose. 100 cc of Omnipaque contrast material was used for the exam. Dose: LAI=574.43 mGy-cm FINDINGS: LUNG PARENCHYMA AND PLEURA: Left upper lobe superior lingular peripheral noncalcified soft tissue attenuation 6 x 6 mm nodule seen (series 2, image 34). Right lower lobe superior segment noncalcified 6 x 7 mm soft tissue attenuation nodule is seen, abutting the fissure (series 2, image 39). Right lower lobe posterior basilar segment 4 x 5 mm noncalcified soft tissue attenuation nodule is seen (series 2, image 71). No definite CT evidence of interstitial lung disease. No CT evidence of pneumonia or airspace disease. There are no pleural effusions. There is no pneumothorax. AIRWAYS: The central airway is unremarkable. Trachea is midline. MEDIASTINUM: No significant mediastinal lymphadenopathy. HEART: The cardiac chambers are unremarkable. There is no pericardial effusion. VASCULAR STRUCTURES: The pulmonary arteries appear unremarkable. The thoracic aorta is within normal limits. The great vessels appear unremarkable. The superior vena cava is unremarkable. VISUALIZED UPPER ABDOMEN: The patient is status post prior cholecystectomy. Small splenic segments are seen in the left upper abdominal region. This may be related to sequela of prior trauma or polysplenia. OSSEOUS STRUCTURES: No acute abnormality seen. IMPRESSION: 1. Left upper lobe superior lingular 6 x 6 mm, right lower lobe superior segment 6 x 7 mm and right lower lobe posterior basilar segment 4 x 5 mm noncalcified nodules, as noted above. Recommend follow-up per Fleischner Society guidelines. 2017 - Guidelines for Management of Incidental Pulmonary Nodules Dectected on CT: From the Fleischner Society. Radiol 2017: 0; 1-16 SOLID NODULES: Multiple Nodule Size* Low Risk\S\ High Risk <6mm No routine follow up needed Optional CT at 12 mos. 6-8mm CT at 3-[address] at 3-[address] at 18 to 24 mos[address] mos[address] then CT at 18 to 24 mos[address] >8mm CT at 3-[address] at 3-[address] at 18 to [address] then [address] CT at 18 to 24 mos. For multiple nodules - use most suspicious nodule to guide management. Follow- up intervals may vary according to size and risk * Dimensions are average of long and short axes, rounded to the nearest mm \S\Low risk=minimal or absent history of smoking and of other age, sex, race and family history risk factors SL: [id number] 07/07/2017 - - Read by: Martin Felipe MD Dictated Date/time: 07/07/17 08:41 Electronically Signed by: Martin Felipe MD 07/07/17 08:47 FINAL REPORT [facility] Vital Signs Vital Sign Value Date Comments Source Encounters Location Location Details Encounter Type Encounter Number Reason For Visit Attending Provider ADM Date DC Date Status Source Registered [facility] [id number] ZAID MARRERO MD 07/12/2017 [facility] Discharged Inpatient (obs) [id number] NARDA YUSUF MD 10/07/2017 10/09/2017 [facility] Departed Emergency Room [id number] JOSE CRISTINA MD 01/18/2018 01/18/2018 [facility] Departed Emergency Room [id number] DAGO BOO MD 04/18/2018 04/18/2018 [facility] Procedures Procedure Code Date Perfomer Comments Source CT of abdomen and pelvis without contrast [id number] 01/18/2018 IBETH [facility] TTE W/DOPPLER COMPLETE [id number] 10/07/2017 GABRIELLE [facility] X-ray of chest, two views [id number] 10/07/2017 BERTHA [facility]
--- OUTSIDE RECORDS SUMMARY | 2019-02-01 10:17 | XMS REPORT | Clinical Summary ---
Author Author [facility] Address Unknown Phone Unavailable Care Team Providers Care Review Analyst Name Role Phone Magdi Mills MD PCP Allergies Not on File Medications Not on file Active Problems Not on file Social History Date Tobacco Use Types Packs/Day Years Used Never Assessed Sex Assigned at Date Recorded Not on file Industry Job Start Date Occupation Not on file Not on file Not on file Travel End Travel History Travel Start No recent travel history available. Last Filed Vital Signs Not on file Plan of Treatment Health Maintenance Due Date Last Done Comments CERVICAL CANCER SCREENING 1982 BREAST CANCER SCREENING 2011 COLON CANCER SCREENING 2011 SHINGLES VACCINES (#1) 2011 INFLUENZA VACCINE 04/19/2019 Results Not on fileafter 01/31/2018 Insurance Payer Benefit Subscriber ID Type Phone Address Plan / Group xxxxxxxxx [facility]
[2019-02-01] MEDS ORDERED: SODIUM CHLORIDE 0.9% 1000ML 1,000 ML IV STA (10:46)
[2019-02-01] MEDS ORDERED: MORPHINE SULFATE INJ 4 MG/ML INJ 1ML IV STA (10:46)
[2019-02-01] MEDS ORDERED: ONDANSETRON HCL INJ 2MG/ML 2ML 2 MG/ML VIAL IV STA (10:46)
[2019-02-01] MEDS ORDERED: DIATRIZOATE MEGL/DIATRIZOA SOD 30 ML BTL PO ONE (11:00)
[2019-02-01 11:34] LABS: CLARITY,URINE SL CLOUDY (CLEAR); COLOR,URINE YELLOW (YELLOW)
[2019-02-01 11:35] LABS: BILIRUBIN,URINE NEGATIVE (NEGATIVE); KETONES,URINE NEGATIVE (NEGATIVE); LEUKOCYTE ESTERASE ,URINE NEGATIVE (NEGATIVE); NITRITE,URINE NEGATIVE (NEGATIVE); PROTEIN,URINE DIPSTICK NEGATIVE (NEGATIVE); URINE UROBILINOGEN 4 mg/dL (0.2 - 1)
[2019-02-01 11:49] LABS: BACTERIA,URINE MODERATE /HPF; EPITHELIAL CELLS,URINE FEW /LPF
[2019-02-01 11:54] LABS: BASOPHILS # (AUTO) 0.1 (0.0-0.1); BASOPHILS % 0.8 % (0.0-1.0); EOSINOPHILS # (AUTO) 0.2 (0.0-0.4); EOSINOPHILS % 2.2 % (0.0-6.0); HEMATOCRIT 34.9 % (34.2-44.1); LYMPHOCYTES # (AUTO) 2.6 (1.0-3.2); LYMPHOCYTES % 26.9 % (18.0-39.1); MEAN CORPUSCULAR HEMOGLOBIN 30.4 pg (28-32); MEAN CORPUSCULAR HGB CONC 34.1 g/dL (31-35); MONOCYTES # (AUTO) 0.9 (0.2-0.8); MONOCYTES % 9.6 % (4.4-11.3); NEUTROPHILS # (AUTO) 5.9 (2.1-6.9); NEUTROPHILS % 60.3 % (38.7-80.0); PLATELET COUNT 390 x10e3/uL (140-360); RED BLOOD COUNT 3.92 x10e6/uL (3.6-5.1)
[2019-02-01 11:56] LABS: HEMOGLOBIN 11.9 g/dL (12.0-16.0)
--- NOTE | 2019-02-01 12:00 | NUR ---
RECEVIED CALL FROM LAB TO INFORM OF HEMOLIZED SPECIMENS, REQUESTED PHELBOTOMIST TO REDRAW SEVERAL ATTEMPTS TO COLLECT BLOOD HAVE BEEN MADE. INFORMED NIURKA COPELAND PRIMARY NURSE AT THIS TIME.
[2019-02-01 12:54] LABS: ALANINE AMINOTRANSFERASE 13 IU/L (0-55); ALBUMIN 2.9 g/dL (3.5-5.0); ALBUMIN/GLOBULIN RATIO 0.7 (0.8-2.0); ALKALINE PHOSPHATASE 105 IU/L (40-150); AMYLASE 28 U/L (25-125); ANION GAP 10.7 mmol/L (8-16); BLOOD UREA NITROGEN 8 mg/dL (7-26); BUN/CREATININE RATIO 12 (6-25); CALCIUM 9.4 mg/dL (8.4-10.2); CARBON DIOXIDE 25 mmol/L (22-29); CHLORIDE 104 mmol/L (98-107); CREATININE, SERUM 0.67 mg/dL (0.57-1.11); EST GLOMERULAR FILTRATION RATE > 60 ML/MIN (60-); GLUCOSE 87 mg/dL (74-118); LIPASE 22 U/L (8-78); MAGNESIUM 1.8 MG/DL (1.3-2.1); POTASSIUM 3.7 mmol/L (3.5-5.1); SODIUM 136 mmol/L (136-145)
[2019-02-01] MEDS ORDERED: MORPHINE SULFATE 2 MG/ML SYR 1ML IV ONE (14:15)
[2019-02-01] MEDS ORDERED: ONDANSETRON HCL INJ 2MG/ML 2ML 2 MG/ML VIAL IV ONE (14:15)
[2019-02-01] MEDS ORDERED: IOPAMIDOL 370 MG/ML 200 ML INFUS..BTL INJ ONE (14:20)
[2019-02-01] MEDS ORDERED: SODIUM CHLORIDE 0.9% 50ML 50 ML ONE (14:20)
--- NOTE | 2019-02-01 14:25 | Diagnostic Imaging Report ---
EXAMINATION: CT of the abdomen and pelvis with contrast. TECHNIQUE: Spiral CT images of the abdomen and pelvis were performed from the lung bases to the lesser trochanters after the intravenous administration of 100 cc Isovue-370. Coronal and sagittal reformatted images were obtained. COMPARISON: CT abdomen and pelvis without contrast 01/18/2018 CLINICAL HISTORY:Abdominal pain, bowel resection 3 weeks ago at outside facility DISCUSSION: ABDOMEN/PELVIS: LOWER THORAX:Unremarkable. HEPATOBILIARY: Subcentimeter hypoattenuating lesions in segment 8 and 7 are too small to further characterize but likely represent small cysts. Similar lesion in segment 3. Findings are grossly unchanged relative to 01/18/2018. No intra-or extrahepatic biliary ductal dilation. The gallbladder has been removed. SPLEEN: Small splenic remnant left upper quadrant unchanged. PANCREAS: No focal masses or ductal dilatation. ADRENALS: No adrenal nodules. KIDNEYS/URETERS: No hydronephrosis, stones, or solid mass lesions. PELVIC ORGANS/BLADDER: The urinary bladder is poorly evaluated secondary to underdistention. The uterus is not identified and has presumably been removed. No adnexal mass. PERITONEUM/RETROPERITONEUM: No ascites. No pneumoperitoneum. LYMPH NODES: No pelvic sidewall, retroperitoneal, or mesenteric lymphadenopathy. VESSELS: Atherosclerotic calcification of the abdominal aorta and major branch vessels, without aneurysmal dilatation. Portal vein, splenic vein, and central superior mesenteric vein are patent. 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 The large bowel shows no evidence of distention or wall thickening. Descending and sigmoid colon diverticula without wall thickening or inflammatory change. The appendix is normal. No small bowel dilatation to suggest obstruction. BONES AND SOFT TISSUE: No osseous destructive lesions. Fat stranding along the superficial and deep margins of the bilateral rectus abdominis muscles compatible with recent surgery. No loculated fluid collection. IMPRESSION: Postsurgical changes of the superficial anterior abdominal wall and along the rectus musculature, without pneumoperitoneum, drainable fluid collection, or evidence of bowel obstruction. Large bowel diverticulosis without findings of diverticulitis. Signed by: Dr. Jerrell Granados M.D. on 02/01/2019 2:22 PM
[2019-02-01] MEDS ORDERED: MORPHINE SULFATE INJ 4 MG/ML INJ 1ML IV ONE (14:30)
[2019-02-01 15:09] VITALS: BP 112/50
== END 2019-02-01 15:15 | disposition home or self-care (01) ==
LOC: ER 10:14
DX: R10.33 Periumbilical pain (principal); K21.9 Gastro-esophageal reflux disease without esophagitis; F41.9 Anxiety disorder, unspecified; F32.9 Major depressive disorder, single episode, unspecified; E66.9 Obesity, unspecified; Z98.0 Intestinal bypass and anastomosis status
CPT/HCPCS: 36415; 74177; 80053; 81001; 82150; 83690; 83735; 85025; 87086; 87186; 99284; J2270; J2405; J7030; Q9967

== ENCOUNTER 2019-06-16 08:45 | Emergency (ER) | payer OTHER ==
[~2019-06-16] VITALS: Ht 160 cm; Wt 108.9 kg
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
--- OUTSIDE RECORDS SUMMARY | 2019-06-16 08:48 | XMS REPORT | Clinical Summary ---
Author Author [facility] Address Unknown Phone Unavailable Care Team Providers Care Public Administration Professor Name Role Phone Magdi Mills MD PCP Allergies No Known Allergies Medications End Date Status Medication Sig Dispensed Refills Start Date Active traMADol (ULTRAM) 50 mg TK 1 T PO Q 1 tablet 6 H PRN P FOR 9 7 DAYS Active pantoprazole (PROTONIX) 0 20 MG EC tablet Active FLUoxetine (PROzac) 40 MG 0 capsule Active Problems Problem Noted Date Primary osteoarthritis of right knee 03/14/2019 Encounters Care Team Description Date Type Specialty Ehsan Salazar MD Chronic pain of right knee (Primary Dx); Primary osteoarthritis of right knee 03/14/2019 Office Visit Orthopedic Surgery after 06/15/2018 Family History Medical History Relation Name Comments Dementia Father Hypertension Father Hypertension Mother Relation Name Status Comments Father Alive Mother Social History Date Tobacco Use Types Packs/Day Years Used Never Smoker Smokeless Tobacco: Never Used Drinks/Week oz/Week Comments Alcohol Use Not Currently Sex Assigned at Date Recorded Female 03/08/2019 8:36 AM CDT Industry Job Start Date Occupation Not on file Not on file Not on file Travel End Travel History Travel Start No recent travel history available. Last Filed Vital Signs Reading Time Taken Comments Vital Sign - - Blood Pressure - - Pulse - - Temperature - - Respiratory Rate - - Oxygen Saturation - - Inhaled Oxygen Concentration 108 kg (239 lb) 03/14/2019 8:42 AM CDT Weight 160 cm (5' 3") 03/14/2019 8:42 AM CDT Height 42.34 03/14/2019 8:42 AM CDT Body Mass Index Plan of Treatment Health Maintenance Due Date Last Done Comments CERVICAL CANCER SCREENING 1982 BREAST CANCER SCREENING 2011 COLONOSCOPY SCREENING 2011 SHINGLES VACCINES (#1) 2011 INFLUENZA VACCINE 04/19/2019 Procedures Comments Procedure Name Priority Date/Time Associated Diagnosis XR KNEE 4+ VW RIGHT Routine 03/14/2019 Chronic pain of right 9:03 AM CDT knee after 06/15/2018 Results * XR Knee 4+ Vw Right (03/14/2019 9:03 AM CDT) Specimen Narrative Performed At [facility] and PA x-rays on the knees bilaterally with bilateral sunrise views and a lateral x-ray of the right knee: Patient has moderate to severe osteoarthritis of the knee on the right with significant joint space narrowing and reactive marginal osteophytes.He is near [id number] Performing Organization Address City/State/Zipcode Phone Number [facility] [address] [place] [address] after 06/15/2018 Insurance Type Payer Benefit Subscriber ID Effective Phone Address Plan / Dates Group xxxxxxxxx 2017-P [facility]
[2019-06-16 09:10] LABS: BASOPHILS # (AUTO) 0.1 (0.0-0.1); BASOPHILS % 1.3 % (0.0-1.0); EOSINOPHILS # (AUTO) 0.3 (0.0-0.4); EOSINOPHILS % 4.8 % (0.0-6.0); HEMATOCRIT 35.8 % (34.2-44.1); HEMOGLOBIN 12.1 g/dL (12.0-16.0); LYMPHOCYTES # (AUTO) 1.7 (1.0-3.2); LYMPHOCYTES % 27.3 % (18.0-39.1); MEAN CORPUSCULAR HEMOGLOBIN 31.2 pg (28-32); MEAN CORPUSCULAR HGB CONC 33.8 g/dL (31-35); MEAN CORPUSCULAR VOLUME 92.3 fL (81-99); MONOCYTES # (AUTO) 0.7 (0.2-0.8); MONOCYTES % 11.8 % (4.4-11.3); NEUTROPHILS # (AUTO) 3.4 (2.1-6.9); NEUTROPHILS % 54.6 % (38.7-80.0); PLATELET COUNT 377 x10e3/uL (140-360); RED BLOOD COUNT 3.88 x10e6/uL (3.6-5.1); RED CELL DISTRIBUTION WIDTH 15.3 % (11.7-14.4)
[2019-06-16] MEDS ORDERED: ASPIRIN 325 MG TAB PO NR (09:15)
[2019-06-16 09:25] LABS: ALANINE AMINOTRANSFERASE 27 IU/L (0-55); ALBUMIN 3.3 g/dL (3.5-5.0); ALBUMIN/GLOBULIN RATIO 0.8 (0.8-2.0); ALKALINE PHOSPHATASE 93 IU/L (40-150); ANION GAP 11.3 mmol/L (8-16); BLOOD UREA NITROGEN 12 mg/dL (7-26); BUN/CREATININE RATIO 15 (6-25); CALCIUM 9.7 mg/dL (8.4-10.2); CARBON DIOXIDE 28 mmol/L (22-29); CHLORIDE 103 mmol/L (98-107); CREATINE KINASE 79 IU/L (29-168); CREATININE, SERUM 0.81 mg/dL (0.57-1.11); EST GLOMERULAR FILTRATION RATE > 60 ML/MIN (60-); GLUCOSE 85 mg/dL (74-118); POTASSIUM 4.3 mmol/L (3.5-5.1); SODIUM 138 mmol/L (136-145)
[2019-06-16] MEDS ORDERED: KETOROLAC TROMETHAMINE 30 MG/ML VIAL IV NR (10:00)
--- NOTE | 2019-06-16 10:16 | Diagnostic Imaging Report ---
EXAMINATION: CHEST 2 VIEWS INDICATION: CHEST PAIN COMPARISON: None FINDINGS: PA and lateral views TUBES and LINES: None. LUNGS: Lungs are well inflated. Lungs are clear. There is no evidence of pneumonia or pulmonary edema. PLEURA: No pleural effusion or pneumothorax. HEART AND MEDIASTINUM: The cardiomediastinal silhouette is unremarkable. BONES AND SOFT TISSUES: No acute osseous lesion. Soft tissues are unremarkable. UPPER ABDOMEN: No free air under the diaphragm. IMPRESSION: No acute thoracic radiographic abnormality. Signed by: Dave Emmanuel DO on 06/16/2019 10:12 AM
--- NOTE | 2019-06-16 10:32 | Diagnostic Imaging Report ---
EXAM: CT Chest WITH contrast 06/16/2019 9:42 AM INDICATION: Chest pain with elevated d-dimer COMPARISON: Abdominal CT 01/18/2018 TECHNIQUE: Chest was scanned utilizing a multidetector helical scanner from the lung apex through the level of the adrenal glands after the administration of IV contrast, scan was completed during systemic arterial phase. Coronal and sagittal reformations were obtained. Routine protocol was performed. IV CONTRAST: 100 mL of Isovue 370 COMPLICATIONS: None RADIATION DOSE: Total DLP: 641 mGy*cm Estimated effective dose: (DLP x 0.014 x size factor) mSv CTDIvol has been reviewed. It is below the limits set by the Radiation Protocol Committee (RPC). Dose modulation, iterative reconstruction, and/or weight based adjustment of the mA/kV was utilized to reduce the radiation dose to as low as reasonably achievable. FINDINGS: LINES/ TUBES: None. LUNGS AND AIRWAYS: Airways are normal. A few small pulmonary nodules seen best on series 2, examples include: -5 mm nodule in the superior aspect right lower lobe (image 56). -5 mm nodule in the right lung base (image 100), similar compared to abdominal CT 01/18/2018. -5.5 mm nodule in the lingula (image 50). No consolidations. PLEURA: The pleural spaces are clear. HEART AND MEDIASTINUM: The thyroid gland is normal. No mediastinal, hilar or axillary lymphadenopathy. The heart is normal in size. There is no pericardial effusion. Retropharyngeal course of the common carotid arteries. Aortic arch calcifications. The main pulmonary artery and thoracic aorta are nondilated. UPPER ABDOMEN: Cholecystectomy clips in the gallbladder fossa. Postsurgical changes along the stomach. Diverticuli in the included transverse and proximal descending colon. BONES: There are degenerative changes in the spine. SOFT TISSUES: Unremarkable. IMPRESSION: No pulmonary embolism identified although this study was not tailored for evaluation of the pulmonary arteries. A few small pulmonary nodules measure less than 6 mm. A follow-up noncontrast chest CT in 12 months is optional. Colonic diverticulosis. Signed by: Dave Emmanuel DO on 06/16/2019 10:29 AM
[2019-06-16 10:43] LABS: ANISOCYTOSIS SLIGHT; EOSINOPHILS % (MANUAL) 5 % (0-7); LYMPHOCYTES % (MANUAL) 32 % (19-48); MONOCYTES % (MANUAL) 8 % (3.4-9.0); NEUTROPHILS % (MANUAL) 54 % (40-74); RBC MORPHOLOGY COMMENT ABNORMAL
[2019-06-16 10:44] LABS: PLATELET ESTIMATE ADEQUATE; PLATELET MORPHOLOGY COMMENT NORMAL
[2019-06-16] MEDS ORDERED: ONDANSETRON HCL INJ 2MG/ML 2ML 2 MG/ML VIAL IV NR (10:45)
[2019-06-16] MEDS ORDERED: MORPHINE SULFATE INJ 4 MG/ML INJ 1ML IV PRN (10:45)
[2019-06-16 11:38] VITALS: BP 109/57
[2019-06-16] MEDS ORDERED: SODIUM CHLORIDE 0.9% 50ML 50 ML ONE (15:23)
[2019-06-16] MEDS ORDERED: IOPAMIDOL 370 MG/ML 200 ML INFUS..BTL INJ ONE (15:23)
== END 2019-06-16 11:41 | disposition home or self-care (01) ==
LOC: ER 08:45
DX: R07.89 Other chest pain (principal); E66.9 Obesity, unspecified
CPT/HCPCS: 36415; 71046; 71260; 80053; 82550; 82553; 84484; 85025; 85379; 93005; 99284; J1885; J2270; J2405; Q9967

== ENCOUNTER 2020-02-19 00:53 | Emergency (ER) | payer OTHER ==
[~2020-02-19] VITALS: Ht 160 cm; Wt 108.9 kg
--- OUTSIDE RECORDS SUMMARY | 2020-02-19 01:00 | XMS REPORT | Clinical Summary ---
Author Author [facility] Address Unknown Phone Unavailable Care Team Providers Care Getter Welder Name Role Phone Magdi Mills MD PCP [...] knee 03/14/2019 Office Visit Orthopedic Surgery after 02/18/2019 Family History Medical History Relation Name Comments [...] 2011 SHINGLES VACCINES (#1) 2011 INFLUENZA VACCINE 04/19/2020 Procedures Comments Procedure Name Priority Date/Time Associated Diag nosis XR KNEE 4+ VW RIGHT Routine 03/14/2019 Chronic pa in of right 9:03 AM CDT knee after 02/18/2019 Results * XR Knee 4+ Vw Right (03/14/2019 9:03 AM CDT) Specimen Narrative Performed At [facility] and PA x-rays on the k nees bilaterally with bilateral sunrise views and a lateral x-ray of th e right knee: Patient has moderate to severe osteoarthritis of the knee on the right with significant joint space narrowing and reactive marginal o steophytes. He is near [id number] Performing Organization Address City/State/Zipcode Ph one Number [facility] [address] [place] [address] after 02/18/2019 Insurance Type Payer Benefit Subscriber ID Effective Phone Address Plan / Dates Group xxxxxxxxx 2017-P [facility] [phone]
--- OUTSIDE RECORDS SUMMARY | 2020-02-19 01:00 | XMS REPORT | Continuity of Care Document ---
Author Author ISAI Gross [facility] [place] Address Unknown Phone Unavailable Care Team Providers Care Professor Of Geography Name Role Phone [employer] Information Exchange Unavailable Un available Problems Problem Status Onset Date Classification Date Reported Comments Source Z87.891 - PERSONAL HISTORY OF NICOTINE D Active 07/07/2017 [facility] [place] Medications No Data Provided for This Section Allergies, Adverse Reactions, Alerts No Known Medication Allergies Immunizations No Data Provided for This Section Results No Data Provided for This Section Pathology Reports No Data Provided for This Section Diagnostic Reports Report Value Date Source Chest w contrast CT Clinical I ndication: J98.4 Other disorders of lung - J98.4 Other disorders of lung. Comparison: None. TECHNIQUE: Sequential trans-axial images were obtained thru the chest and upper abdomen after administration of iodinated contrast. Coronal and sagittal reconstructions were obtained. CT imaging was performed with exposure control parameters to reduce radiation dose. 100 cc of Omnipaque contrast material wa s used for the exam. Dose: DLP = 531.43 mGy-cm FINDINGS: LUNG PARENCHYMA AND PLEURA: Left [...] guidelines. 2017 - Guidelines for Management of Inci dental Pulmonary Nodules Dectected on CT: From the [...] axes, rounded to the nearest mm \S\Low risk = minimal or absent history of smoking and of other age, sex, race and family history risk factors SL: [id number] 07/07/2017 ELYS[facility] mallory Consultation Notes No Data Provided for This Section Discharge Summaries No Data Provided for This Section History and Physicals No Data Provided for This Section Vital Signs No Data Provided for This Section Encounters No Data Provided for This Section Procedures No Data Provided for This Section Assessment and Plan No Data Provided for This Section Plan of Care No Data Provided for This Section Social History No Data Provided for This Section Family History No Data Provided for This Section Advance Directives No Data Provided for This Section Functional Status No Data Provided for This Section
--- OUTSIDE RECORDS SUMMARY | 2020-02-19 01:01 | XMS REPORT | Continuity of Care Document ---
Author Author [facility] t Organization [facility] Address [address] [place] [address] Phone Unavailable Care Team Providers Care Appliance Installer Name Role Phone LALO MOSS, Carl MARSH PCP JONNY CARPIO Attphys Unavailable Karen Salazar MD Attphys Abby CASH AMBICA Attphys Unavailable Jyoti CRISTINA JOSE Attphys Unavailable Radha STONE BRENDEN Attphys Unavailable Payers Payer Name Policy Type Policy Number Effective Date Expiration Date Abby Mcclendon Ppo [id number] 2017 00:00[facility]00 [facility] 2017 00:00:00 [place] Dru[place] Problems Condition Name Condition Details Condition Category Status Onset Date Resolution Date Last Treatment Date Treating Clinician Comments Source Primary osteoarthritis of right knee Primary osteoarthritis of right knee Disease Active 2019-03-14 00:00:00 [place] Druze Z87.891 - PERSONAL HISTORY OF NICOTINE D Z87.891 - PERSONAL HISTORY OF NICOTINE D Active 07/07/2017 [facility] [place] Diagnosis Active 2017-07-07 00:01:00 2017-07-07 07:30:00 [facility] [place] Chest pain Chest pain Problem Active C [facility] Palpitations Palpitations Problem Active [facility] Allergies, Adverse Reactions, Alerts Allergy Name Allergy Type Status Severity Reaction(s) Onset Date Inacti ve Date Treating Clinician Comments Source Penicillins DA Active U 2019-02-28 00:00:00 [facility] codeine DA Active U 2019-02-28 00:00:00 [facility] celecoxib DA Active U 2019-02-28 00:00:00 [facility] hydromorphone DA Active U 2018-12-27 00:00:00 [facility] Penicillins DA Active SV 2018-12-25 00:00:00 [facility] codeine DA Active SV 2018-12-25 00:00:00 [facility] celecoxib DA Active U 2018-12-25 00:00:00 [facility] Penicillins DA Active SV 2018-12-15 00:00:00 [facility] codeine DA Active SV 2018-12-15 00:00:00 [facility] celecoxib DA Active U 2018-12-15 00:00:00 [facility] Penicillin Allergy to Substance Active RASH 2018-04-18 00:00:00 [facility] Codeine Allergy to Substance Active NAUSEA 2018-04-18 00:00:00 [facility] Celecoxib Allergy to Substance Active BURNING 2018-04-18 00:00:00 [facility] Penicillins DA Active SV 2016-03-08 00:00:00 [facility] codeine DA Active SV 2016-03-08 00:00:00 [facility] celecoxib DA Active U 2016-03-08 00:00:00 [facility] Family History Family Member Diagnosis Comments Start Date Stop Date Source Natural father Dementia [facility] Natural father Hypertension Rui Piedra Natural mother Hypertension Rui Piedra Social History Social Habit Start Date Stop Date Quantity Comments Source Sex Assigned At F Cordelia swartz Druze Alcohol intake 2019-03-14 00:00:00 2019-03-14 00:00:00 Ex-drinker (fi nding) Rui Piedra Smoking Status Start Date Stop Date Source Never smoker Rui hanley Medications Ordered Medication Name Filled Medication Name Start Date Stop Da te Current Medication? Ordering Clinician Indication Dosage Frequency Signature (SIG) Comments Components Source pantoprazole (PROTONIX) 20 MG EC tablet 2019-03-14 08:44:17 Siddharth Piedra FLUoxetine (PROzac) 40 MG capsule 2019-03-14 08:44:17 Yes Rui Piedra traMADol (ULTRAM) 50 mg tablet 2019-03-02 00:00:00 Yes TK 1 T PO Q 6 H PRN P FOR 7 DAYS Rui Piedra Aspirin (Aspirin Ec) 81 Mg Tablet. Aspirin (Aspirin Ec) 81 Mg Tablet. 2017-10-09 00:00:00 Yes Hunter Jenkins Md 81 Every Morn ing [facility] Calcium Carbonate 500MG Chew 500 Mg Chew Calcium Carbo bert 500MG Chew 500 Mg Chew 2017-10-09 00:00:00 Yes Hunter Jenkins Md 500 Three [place] es A Day [facility] Metoprolol Tartrate (Lopressor) 25 Mg Tab Metoprolol T artrate (Lopressor) 25 Mg Tab 2017-10-09 00:00:00 Yes Hunter Jenkins Md 25 Every 12 Hours [facility] Sucralfate (Carafate) 1 Gm Tablet Sucralfate (Carafate) 1 Gm Tablet 2017-10-09 00:00:00 Yes Hunter Jenkins Md 1 Before Meals And At B edtime [facility] Ascorbic Acid (Vitamin C) 1,000 Mg Tablet Ascorbic Aci d (Vitamin C) 1,000 Mg Tablet Yes 1000 Daily [facility] Fluoxetine Hcl (Prozac) 20 Mg Capsule Fluoxetine Hcl (Prozac) 20 Mg Capsule Yes 40 Daily [facility] Gabapentin 100 Mg Capsule Gabapentin 100 Mg Capsule Yes Daily [facility] Multivitamin (Multi-Vitamin Daily) 1 Each Tablet Multi vitamin (Multi-Vitamin Daily) 1 Each Tablet Yes 1 Daily [facility] Multivitamin With Minerals (Hair, Skin & Nails) 1 Each Tablet Multivitamin With Minerals (Hair, Skin & Nails) 1 Each Tablet Yes 1 Daily [facility] Pantoprazole Sodium (Protonix) 40 Mg Tablet. Pantopr azole Sodium (Protonix) 40 Mg Tablet.dr Arceo 40 Daily [facility] Vitamin E 400 Unit Capsule Vitamin E 400 Unit Capsule Yes 1000 Daily [facility] Vital Signs Vital Name Observation Time Observation Value Comments Source Body height 2019-03-14 08:42:00 160 cm Rui Piedra Body weight 2019-03-14 08:42:00 108.41 kg Rui Piedra BMI 2019-03-14 08:42:00 42.34 kg/m2 Rui Praterist Procedures Procedure Date / Time Performed Performing Clinician [facility] e X-ray of chest, two views 2019-06-16 00:00:00 JONNY CARPIO CH [facility] Computed tomography of chest with contrast 2019-06-16 00:00:00 JONNY TAPIA [facility] XR KNEE 4+ VW RIGHT 2019-03-14 09:03:39 Ehsan Salazar Computed tomography of abdomen and pelvis with contrast 2018 00:00:00 ARIES AYALA [facility] Plan of Care Planned Activity Planned Date Details Comments Source Future Scheduled Test 2020-04-19 00:00:00 INFLUENZA VACCINE [code = INFLUENZA VACCINE] [facility] Future Scheduled Test 2011 00:00:00 BREAST CANCER SCRE ENING [code = BREAST CANCER SCREENING] [facility] Future Scheduled Test 2011 00:00:00 COLONOSCOPY SCREEN ING [code = COLONOSCOPY SCREENING] [facility] Future Scheduled Test 2011 00:00:00 SHINGLES VACCINES (#1) [code = SHINGLES VACCINES (#1)] [facility] Future Scheduled Test 1982 00:00:00 Screening for jodee gnant neoplasm of cervix (procedure) [code = 062802715] Rui Owens t Encounters Start Date/Time End Date/Time Encounter Type Admission Type Attendi [facility] Care Department Encounter ID Source 2020-02-19 01:00:33 Outpatient MHIEALT MHIEALT [id number] [facility] 2019-06-16 08:45:00 2019-06-16 11:41:00 Departed Emergency Room 1 SHIRIN JONNY [facility] [id number] [facility] 2019-06-13 13:42:00 2019-06-13 13:42:00 Emergency E [facility] [place] [facility] 2019-04-11 21:13:00 2019-04-11 21:13:00 Emergency E [facility] [place] 7536 [facility] 2019-03-04 15:31:00 2019-03-04 15:31:00 Emergency E [facility] [place] [facility] 2019-02-01 10:14:00 2019-02-01 15:15:00 Departed Emergency Room 1 YISSEL CASH [facility] [id number] [facility] 2018-04-18 08:38:00 2018-04-18 09:23:00 Departed Emergency Room [facility] [id number] [facility] 2018-01-18 08:48:00 2018-01-18 12:16:00 Departed Emergency Room ER JOSE CRISTINA [facility] [id number] [facility] 2017-10-07 19:34:00 2017-10-09 10:42:00 Discharged Inpatient (obs) ER BRENDEN STONE [facility] [id number] [facility] 2017-07-12 13:46:00 2017-07-12 13:46:00 Registered Surgical Day Care [facility] [id number] [facility] Results Test Description Test Time Test Comments Results Result Comments Source - CTA ANGIO CHEST 2019-06-19 16:56:00 Patient Na me: ISAI VEGA Unit No: [id number] EXAMS: CPT: [id number] CTA ANGIO CHEST [address] CT CHEST WITH CONTRAST: INDICATIONS:Blunt trauma. Chest pain. Trauma. COMPARISON: None available CT radiation dose optimization is achieved for this examination by the use of a CT protocol in accordance with ACR practice standards and adherence to mold stacker's recommendations. Contrast: 95cc Isovue-370. Total DPL: 809.18mGy*cm. FINDINGS: The visualized central airway is unremarkable. No hilar or mediastinal lymphadenopathy. Cardiac size is normal. No coronary calcifications. No pericardial effusion. The lungs are clear of infiltrates. No pleural effusion, masses, pneumothorax or consolidation. The assessment for pulmonary embolism is limited as there is somewhat poor contrast opacification. There is no evidence of central pulmonary embolus. Distal vessels are partly degraded by decreased contrast opacification. The thoracic aorta is of normal caliber without dissection, aneurysm or stenosis. Below the hemidiaphragms: Status post gastric sleeve. The visualized upper abdominal organs appear unremarkable. IMPRESSION: No large pulmonary emboli. No acute abnormality within the chest. at 1656 Reported and signed by: Bertha Scherer MD Name: ISAI VEGA [facility] Phys: Sonya Lo MD [address] [facility] : 1960 Age: 58 Sex: F [place], [place] [address] Loc: N.ERS Exam Date: 06/19/2019 Status: REG ER PH: FAX: PAGE 1 Signed Report (CONTINUED) Patient Name: ISAI VEGA Unit No: [id number] EXAMS: CPT: [id number] CTA ANGIO CHEST 83838 <Continued> CC: Magdi Mills MD Technologist: IMAN Nieves CTDI: 20.92 DLP: 809.18 [facility] Dt/Tm: 06/19/2019 (1655) by:[email or web address] Orig Print D/T: S: 06/19/2019 (1658) BATCH NO: N/A Name: ISAI VEGA [facility] Phys: Sonya Lo MD [address] [facility] : 1960 Age: 58 Sex: [place] [address] Loc: N.ERS Exam Date: 06/19/2019 Status: REG ER PH: FAX: PAGE 2 Signed Report BASIC METABOLIC PANEL 2019-06-19 15:41:00 Test Item SODIUM (test code = NA) 136 mmol/L 135-145 N POTASSIUM (test code = K) 4.4 mmol/L 3.6-5.0 N CHLORIDE (test code = CL) 102 mmol/L 101-111 N CARBON DIOXIDE (test code = CO2) 26 mmol/L 21-31 N GLUCOSE (test code = GLU) 85 mg/dl 70-100 N BLOOD UREA NITROGEN (test code = BUN) 8 mg/dl 6-20 N GLOMERULAR FILTRATION RATE (test code = GFR) >=60 max estimate >60 The estimated glomerular filtration rate is computed usingpatient race, age (>18), sex, and serum creatinine. If anyof the needed data elements are missing the Laboratory cannot compute an estimation of the glomerular filtration rate. CREATININE (test code = CREAT) 0.85 mg/dL 0.44-1.03 N CALCIUM (test code = CA) 9.3 mg/dL 8.5-10.5 N [id number] 15:33:00* Test Item Value Reference Range Interpretation Comments TROPONIN-I (test code = TROPI) <0.020 ng/mL 0.000-0.034 N CBC W/AUTO [id number] 14:47:00* Test Item Value Reference Range Interpretation Comments WHITE BLOOD CELL (test code = WBC) 6.3 x10 3/uL 3.2-11.5 N RED BLOOD CELL (test code = RBC) 3.79 x10(6)/m 3.70-5.10 N HEMOGLOBIN (test code = HGB) 12.0 g/dL 12.0-15.0 N HEMATOCRIT (test code = HCT) 35.8 % 35.7-44.8 N MEAN CELL VOLUME (test code = MCV) 94 fL 80-100 N MEAN CELL HGB (test code = MCH) 31.6 pg 26.2-33.8 N MEAN CELL HGB CONCENTRATION (test code = MCHC) 33.5 g/dL 30.0-34 .0 N RED CELL DISTRIBUTION WIDTH (test code = RDW) 15.1 % 11.3-14. 5 H PLATELET COUNT (test code = PLT) 321 x10 3/uL 130-408 N MEAN PLATELET VOLUME (test code = MPV) 7.5 fl 6.4-10.5 N NEUTROPHIL % (test code = NT%) 48.4 % 40.0-70.0 N LYMPHOCYTE % (test code = LY%) 31.7 % 20-40 N MONOCYTE % (test code = MO%) 12.8 % 1-10 H EOSINOPHIL % (test code = EO%) 5.6 % 1.0-5.0 H BASOPHIL % (test code = BA%) 1.5 % 0.0-1.0 H NEUTROPHIL # (test code = NT#) 3.0 x10 3/uL 1.6-7.2 N LYMPHOCYTE # (test code = LY#) 2.00 x10 3/uL 1.1-2.7 N MONOCYTE # (test code = MO#) 0.8 x10 3/uL 0.3-0.8 N EOSINOPHIL # (test code = EO#) 0.4 x10 3/uL 0.0-0.5 N BASOPHIL # (test code = BA#) 0.1 x10 3/uL 0.0-0.1 N - XR KNEE 4 + V [id number] 14:43:00Patient Name: ISAI VEGA Unit No: [id number] EXAMS: CPT: [id number] XR KNEE 4 + V RT 25081 RADIOGRAPH : Right knee 4 views COMPARISON: None CLINICAL HISTORY: Status post fall FINDINGS: No acute fracture or dislocation identified. Significant tricompartmental osteoarthritic changes are seen with joint space narrowing, subchondral sclerosis, and osteophyte formation, worse in the medial compartment. Tiny joint effusion is seen. No suspicious osseous lesion identified. IMPRESSION: No acute fracture or dislocation. Advanced tricompartmental osteoarthritic changes of the right knee. at 1443 Reported and signed by: Anoop Osborn MD CC: Magdi Mills MD Technologist: Tommy Wilder Time: DAP (Gy m2): Air Kerma (mGy): Trscr Dt/Tm: 06/19/2019 (1443) by:AbelardoHNN Orig Print D/T: S: 06/19/2019 (1447) BATCH NO: N/A Name: ISAI VEGA [facility] Phys: Sonya Lo MD [address] [place] : 1960 Age: 58 Sex: [place] [address] Loc: N.ERS Exam Date: 06/19/2019 Status: REG ER PH: FAX: PAGE 1 Signed Report - XR CHEST 2 [id number] 13:48:00Patient Name: ISAI VEGA Unit No: [id number] EXAMS: CPT: [id number] XR CHEST 2 V 19760 CHEST 2 VIEWS: COMPARISON: 04/17/2019 CLINICAL HISTORY: Chest pain FINDINGS: Mild infiltrate is seen in the right middle lobe which is a new finding. The left lung is clear. No pleural effusion or pneumothorax identified. Heart size is with in normal limits. Bony structures appear unremarkable. IMPRESSION: New mild ri ght middle lobe infiltrate. Electronically Signed by Anoop Osborn MD o n 06/19/2019 at 1348 Reported and signed by: Anoop Osborn MD CC: Magdi Mills MD Technologist: Julio Wilder Time: DAP (Gy m2): Air Kerma (mGy): Trscr Dt/Tm: 06/19/2019 (7268) by:Susy Orig Print D/T: S: 09/2018 (1359) BATCH NO: N/A Name: ISAI VEGA [facility] Phys: Sonya Lo MD [address] [facility] : 1960 Age: 58 Sex: F [place] [address] Loc: N.ERS Exam Date: 06/19/2019 Status: REG ER PH: FAX: PAGE 1 Signed Report Differential Total Cells [id number] 10:44:00* Test Item Value Reference Range Interpretation Comments Differential Total Cells Counted (test code = Differen tial Total Cells Counted) 100 [facility]ils % (Manual)2019-06-16 10:44:00 * Test Item Value Reference Range Interpretation Comments Neutrophils % (Manual) (test code = 66791-0) 54 40-74 [facility] HospitalLymphocytes % (Manual)2019-06-16 10:44:00 * Test Item Value Reference Range Interpretation Comments Lymphocytes % (Manual) (test code = 737-7) 32 19-48 [facility]Monocytes % (Manual)2019-06-16 10:44:00* Test Item Value Reference Range Interpretation Comments Monocytes % (Manual) (test code = 744-3) 8 3.4-9.0 [facility]Eosinophils % (Manual)2019-06-16 10:44:00 * Test Item Value Reference Range Interpretation Comments Eosinophils % (Manual) (test code = 714-6) 5 0-7 [facility]ophils % (Manual)2019-06-16 10:44:00* Test Item Value Reference Range Interpretation Comments Basophils % (Manual) (test code = 77679-8) 1 0-1.5 [facility] HospitalPlatelet Dcgaqaaq0555-53-56 10:44:00* Test Item Value Reference Range Interpretation Comments Platelet Estimate (test code = 49822-7) ADEQUATE [facility] HospitalPlatelet Morphology [id number] 10:44:00* Test Item Value Reference Range Interpretation Comments Platelet Morphology Comment (test code = 05769-6) NORMAL [facility] HospitalAnisocytosis2019-09-28 10:44:00* Test Item Value Reference Range Interpretation Comments Anisocytosis (test code = 702-1) SLIGHT [facility] HospitalMacrocytosis2019-09-28 10:44:00* Test Item Value Reference Range Interpretation Comments Macrocytosis (test code = 738-5) SLIGHT [facility] HospitalRed Cell Morphology [id number] 10:44:00* Test Item Value Reference Range Interpretation Comments Red Cell Morphology Comment (test code = 6742-1) ABNORMAL [facility] HospitalCT CHEST [id number] 10:15:00 [facility] [address] [place] [address] Patient Name: ISAI VEGA MR #: [id number] : 1960 Age/Sex: 58/F Req #: [id number] Adm Physician: Ordered by: JONNY CARPIO DO Report #: [id number] Location: ER Room/Bed: Procedure: [id number] CT/CT CHEST W Exam Date: 06/16/19 Exam Time: 0950 REPORT STATUS: Signed EXAM: CT Chest WITH contrast 06/16/2019 9:42 AM INDICATION: Chest pain with elevated d-dimer COMPARISON: Abdominal CT 01/18/2018 TECHNIQUE: Chest was scanned utilizing a multidetector helical scanner from the lung apex through the level of the ad renal glands after the administration of IV contrast, scan was completed durin g systemic arterial phase. Coronal and sagittal reformations were obtained. Ro utine protocol was performed. IV CONTRAST: 100 mL of Isovue 370 COMP LICATIONS: None RADIATION DOSE: Total DLP: 641 mGy*cm Estima sharri effective dose: (DLP x 0.014 x size factor) mSv CTDIvol has been revi ewed. It is below the limits set by the Radiation Protocol Committee (RPC). Dose modulation, iterative reconstruction, and/or weight based adjustment of the mA/kV was utilized to reduce the radiation dose to as low as reasonably achievable. FINDINGS: LINES/ TUBES: None. LUNGS AND AIRWAYS: Airways are normal. A few small pulmonary nodules seen best on series 2, exam ples include: -5 mm nodule in the superior aspect right lower lobe (image 56). -5 mm nodule in the right lung base (image 100), similar compared to abdominal CT 01/18/2018. -5.5 mm nodule in the lingula (image 50). No consolidat ions. PLEURA: The pleural spaces are clear. HEART AND MEDIASTINUM: The thyroid gland is normal. No mediastinal, hilar or axillary lymphadenopathy. The heart is normal in size. There is no pericardial effusion. Retropharynge al course of the common carotid arteries. Aortic arch calcifications. The main pulmonary artery and thoracic aorta are nondilated. UPPER ABDOMEN: Cholecy stectomy clips in the gallbladder fossa. Postsurgical changes along the stomac h. Diverticuli in the included transverse and proximal descending colon. BONES: There are degenerative changes in the spine. SOFT TISSUES: Unremarka ble. IMPRESSION: No pulmonary embolism identified although this study was not tailored for evaluation of the pulmonary arteries. A few small pulm onary nodules measure less than 6 mm. A follow-up noncontrast chest CT in [address] [place] [address] is optional. Colonic diverticulosis. Signed by: Dave Colorado DO on 06/16/2019 10:29 AM Dictated By: DAVE COLORADO DO 1029 Transcribed By: PAIGE on 1029 COPY TO: JONNY CARPIO DO CHEST 2 [id number] 10:11:00 [place] [address] Patient Name: ISAI VEGA MR #: [id number] : 1960 Age/Sex: 58/F Req #: [id number] Adm Physician: Ordered by: JONNY CARPIO DO Report #: [id number] Location: ER Room/Bed: Procedure: [id number] DX/DARRON ST 2 VIEWS Exam Date: 06/16/19 Exam Time: 0900 REPORT STATUS: Signed EXAMINATION: C HEST 2 VIEWS INDICATION: CHEST PAIN COMPARISON: None FI NDINGS: PA and lateral views TUBES and LINES: None. LUNGS: Lungs ar e well inflated. Lungs are clear. There is no evidence of pneumonia or pulmo nary edema. PLEURA: No pleural effusion or pneumothorax. HEART AND ME DIASTINUM: The cardiomediastinal silhouette is unremarkable. BONES AND SOFT TISSUES: No acute osseous lesion. Soft tissues are unremarkable. UPPER ABDOMEN: No free air under the diaphragm. IMPRESSION: No acute thoracic radiographic abnormality. Signed by: Dave Colorado DO on 05/21 10:12 AM Dictated By: DAVE COLORADO DO 1012 Transcribed By: PAIGE on 06/16/19 101 2 COPY TO: JONNY CARPIO DO D-Dimer Quantitative (PE/DVT) 2019-06-16 09:40:00* Test Item Value Reference Range Interpretation Comments D-Dimer Quantitative (PE/DVT) (test code = 52697-6) 894 0- 400 H As with all in vitro diagnostic tests, the test results should be interpreted by the physician in conjunction with clinical findings and other test results.Test results are reported in NEW D-dimer units(ug/mLFEU).[facility] HospitalCreatine Kinase [id number] 09:32:00* Test Item Value Reference Range Interpretation Comments Creatine Kinase MB (test code = 83911-2) 1.00 0-5.0 [facility] HospitalTroponin [id number] 09:32:00* Test Item Value Reference Range Interpretation Comments Troponin I (test code = LJT2669) 0.001 0-0.300 [facility] Ieftq5018-18-23 09:25:00* Test Item Value Reference Range Interpretation Comments Sodium Level (test code = 2951-2) 138 136-145 [facility] HospitalPotassium [id number] 09:25:00* Test Item Value Reference Range Interpretation Comments Potassium Level (test code = 2823-3) 4.3 3.5-5.1 [facility] HospitalChloride [id number] 09:25:00* Test Item Value Reference Range Interpretation Comments Chloride Level (test code = 2075-0) 103 98-107 [facility] HospitalCarbon Dioxide Snhld7842-35-88 09:25:00* Test Item Value Reference Range Interpretation Comments Carbon Dioxide Level (test code = 2028-9) 28 22-29 [facility] HospitalAnion [id number] 09:25:00* Test Item Value Reference Range Interpretation Comments Anion Gap (test code = 79590-1) 11.3 8-16 [facility] HospitalBlood Urea Wduczasr9358-75-05 09:25:00* Test Item Value Reference Range Interpretation Comments Blood Urea Nitrogen (test code = 3094-0) 12 7-26 [facility] HospitalCreatinine2019-09-28 09:25:00* Test Item Value Reference Range Interpretation Comments Creatinine (test code = 2160-0) 0.81 0.57-1.11 [facility] HospitalBUN/Creatinine Nzmxa8324-11-44 09:25:00* Test Item Value Reference Range Interpretation Comments BUN/Creatinine Ratio (test code = 3097-3) 15 6-25 [facility] HospitalEstimat Glomerular Filtration Rate 2019-06-16 09:25:00* Test Item Value Reference Range Interpretation Comments Estimat Glomerular Filtration Rate (test code = 375181949) > 60 >60 Ranges were taken from the National Kidney Disease Education Program and the [facility] Kidney Foundation literature.Reference ranges:60 or greater: Tybmrm12-10 ( for 3 consecutive months): Chronic kidney disease 15 or less: Kidney failureMethodist Stone Oak HospitalGlucose Jvcie4605-28-92 09:25:00* Test Item Value Reference Range Interpretation Comments Glucose Level (test code = QKH4130) 85 74-118 [facility] HospitalCalcium Jsfhc0404-42-03 09:25:00* Test Item Value Reference Range Interpretation Comments Calcium Level (test code = 83857-7) 9.7 8.4-10.2 [facility] HospitalTotal Bgtfubytj6999-96-35 09:25:00* Test Item Value Reference Range Interpretation Comments Total Bilirubin (test code = 1975-2) 0.6 0.2-1.2 [facility] HospitalAspartate Amino Transf (AST/SGOT) 2019-06-16 09:25:00* Test Item Value Reference Range Interpretation Comments Aspartate Amino Transf (AST/SGOT) (test code = Aspartate Amino Transf (AST/SGOT)) 27 5-34 [facility] HospitalAlanine Aminotransferase (ALT/SGPT) 2019-06-16 09:25:00* Test Item Value Reference Range Interpretation Comments Alanine Aminotransferase (ALT/SGPT) (test code = 1742-6) 27 0-55 [facility] HospitalTotal Ctsbvco3507-07-50 09:25:00* Test Item Value Reference Range Interpretation Comments Total Protein (test code = 2885-2) 7.4 6.5-8.1 [facility] HospitalAlbumin2019-09-28 09:25:00* Test Item Value Reference Range Interpretation Comments Albumin (test code = 1751-7) 3.3 3.5-5.0 L [facility] HospitalGlobulin2019-09-28 09:25:00* Test Item Value Reference Range Interpretation Comments Globulin (test code = 51671-7) 4.1 2.3-3.5 H [facility] HospitalAlbumin/Globulin Epddw9159-26-04 09:25:00 * Test Item Value Reference Range Interpretation Comments Albumin/Globulin Ratio (test code = 1759-0) 0.8 0.8-2.0 [facility] HospitalAlkaline Tbcthcocnee9052-48-75 09:25:00* Test Item Value Reference Range Interpretation Comments Alkaline Phosphatase (test code = 6768-6) 93 40-150 [facility] HospitalCreatine Khpgff1527-45-46 09:25:00* Test Item Value Reference Range Interpretation Comments Creatine Kinase (test code = 2157-6) 79 29-168 [facility] HospitalWhite Blood Llohv5964-66-51 09:11:00* Test Item Value Reference Range Interpretation Comments White Blood Count (test code = 6690-2) 6.29 4.8-10.8 [facility] HospitalRed Blood Lqclx8130-47-57 09:11:00* Test Item Value Reference Range Interpretation Comments Red Blood Count (test code = 789-8) 3.88 3.6-5.1 [facility] HospitalHemoglobin2019-09-28 09:11:00* Test Item Value Reference Range Interpretation Comments Hemoglobin (test code = 72954-4) 12.1 12.0-16.0 [facility] HospitalHematocrit2019-09-28 09:11:00* Test Item Value Reference Range Interpretation Comments Hematocrit (test code = 4544-3) 35.8 34.2-44.1 [facility] HospitalMean Corpuscular Fkvjpx2479-13-71 09:11:00* Test Item Value Reference Range Interpretation Comments Mean Corpuscular Volume (test code = 787-2) 92.3 81-99 [facility] HospitalMean Corpuscular Apmptflhmo0349-26-64 09:11:00* Test Item Value Reference Range Interpretation Comments Mean Corpuscular Hemoglobin (test code = 785-6) 31.2 28-32 [facility] HospitalMean Corpuscular Hemoglobin Concent 2019-06-16 09:11:00* Test Item Value Reference Range Interpretation Comments Mean Corpuscular Hemoglobin Concent (test code = 786-4) 33.8 31-35 [facility] HospitalRed Cell Distribution Bergf1380-16-25 09:11:00* Test Item Value Reference Range Interpretation Comments Red Cell Distribution Width (test code = 56280-2) 15.3 11.7 -14.4 H [facility] HospitalPlatelet Vebpc6331-94-33 09:11:00* Test Item Value Reference Range Interpretation Comments Platelet Count (test code = 777-3) 377 140-360 H [facility] HospitalNeutrophils (%) (Auto)2019-06-16 09:11:00 * Test Item Value Reference Range Interpretation Comments Neutrophils (%) (Auto) (test code = 70148-1) 54.6 38.7-80.0 [facility] HospitalLymphocytes (%) (Auto)2019-06-16 09:11:00 * Test Item Value Reference Range Interpretation Comments Lymphocytes (%) (Auto) (test code = 736-9) 27.3 18.0-39.1 [facility] HospitalMonocytes (%) (Auto)2019-06-16 09:11:00* Test Item Value Reference Range Interpretation Comments Monocytes (%) (Auto) (test code = 5905-5) 11.8 4.4-11.3 H [facility] HospitalEosinophils (%) (Auto)2019-06-16 09:11:00 * Test Item Value Reference Range Interpretation Comments Eosinophils (%) (Auto) (test code = 713-8) 4.8 0.0-6.0 [facility] HospitalBasophils (%) (Auto)2019-06-16 09:11:00* Test Item Value Reference Range Interpretation Comments Basophils (%) (Auto) (test code = 706-2) 1.3 0.0-1.0 H [facility] HospitalIM GRANULOCYTES %2019-06-16 09:11:00* Test Item Value Reference Range Interpretation Comments IM GRANULOCYTES % (test code = IM GRANULOCYTES %) 0.2 0.0- 1.0 [facility] HospitalNeutrophils # (Auto)2019-06-16 09:11:00* Test Item Value Reference Range Interpretation Comments Neutrophils # (Auto) (test code = 751-8) 3.4 2.1-6.9 [facility] HospitalLymphocytes # (Auto)2019-06-16 09:11:00* Test Item Value Reference Range Interpretation Comments Lymphocytes # (Auto) (test code = 70972-2) 1.7 1.0-3.2 [facility] HospitalMonocytes # (Auto)2019-06-16 09:11:00* Test Item Value Reference Range Interpretation Comments Monocytes # (Auto) (test code = 742-7) 0.7 0.2-0.8 [facility] HospitalEosinophils # (Auto)2019-06-16 09:11:00* Test Item Value Reference Range Interpretation Comments Eosinophils # (Auto) (test code = 711-2) 0.3 0.0-0.4 [facility] HospitalBasophils # (Auto)2019-06-16 09:11:00* Test Item Value Reference Range Interpretation Comments Basophils # (Auto) (test code = 704-7) 0.1 0.0-0.1 [facility] HospitalAbsolute Immature Granulocyte (auto 2019-06-16 09:11:00* Test Item Value Reference Range Interpretation Comments Absolute Immature Granulocyte (auto (chi t code = Absolute Immature Granulocyte (auto) 0.01 0-0.1 [facility] HospitalB-TYPE NATRIURETIC [id number] 17:21:00* Test Item Value Reference Range Interpretation Comments B-TYPE NATRIURETIC PEPTIDE (test code = BNP) 21 pg/ml 0-100 N BASIC METABOLIC [id number] 17:12:00* Test Item Value Reference Range Interpretation Comments SODIUM (test code = NA) 136 mmol/L 135-145 N POTASSIUM (test code = K) 4.3 mmol/L 3.6-5.0 N CHLORIDE (test code = CL) 101 mmol/L 101-111 N CARBON DIOXIDE (test code = CO2) 29 mmol/L 21-31 N GLUCOSE (test code = GLU) 79 mg/dl 70-100 N BLOOD UREA NITROGEN (test code = BUN) 12 mg/dl 6-20 N GLOMERULAR FILTRATION RATE (test code = GFR) >=60 max estimate >60 The estimated glomerular filtration rate is computed usingpatient race, age (>18), sex, and serum creatinine. If anyof the needed data elements are missing the Laboratory cannot compute an estimation of the glomerular filtration rate. CREATININE (test code = CREAT) 0.68 mg/dL 0.44-1.03 N CALCIUM (test code = CA) 8.8 mg/dL 8.5-10.5 N LIVER FUNCTION [id number] 17:12:00* Test Item Value Reference Range Interpretation Comments TOTAL PROTEIN (test code = PROT) 6.7 g/dL 6.7-8.2 N ALBUMIN (test code = ALB) 3.3 g/dL 3.2-5.5 N BILIRUBIN TOTAL (test code = BILT) 0.40 mg/dL 0.2-1.3 N BILIRUBIN DIRECT (test code = BILD) 0.1 mg/dL 0.00-0.20 N SGOT/AST (test code = AST) 19 U/L 10-42 N SGPT/ALT (test code = ALT) 18 U/L 10-60 N ALKALINE PHOSPHATASE (test code = ALKP) 89 U/L 42-121 N [id number]-[id number] 17:10:00* Test Item Value Reference Range Interpretation Comments TROPONIN-I (test code = TROPI) <0.020 ng/mL 0.000-0.034 N N-[id number] 16:59:00* Test Item Value Reference Range Interpretation Comments D-DIMER (test code = DDIMER) 863 ng/mLFEU 0-500 H D-Dimer results are reported in ng/mL. These unitscorrespond to ng/mL Fibrinogen Equivalent Units (FEU). TheD-Dimer cut-off value is the same as the normal referencerange. A negative D- Dimer result when combined with aclinical assessment of low pretest probability has beenshown to have a high negative predictive value for deep veinthrombosis (DVT) and pulmonary embolism (PE). Elevatedlevels of D-Dimer are found in clinical conditions such asDVT, PE and disseminated intravascular coagulation (DIC).D-Dimer levels also rise during normal but veryhigh levels are associated with complications. CBC W/AUTO [id number] 16:50:00* Test Item Value Reference Range Interpretation Comments WHITE BLOOD CELL (test code = WBC) 9.4 x10 3/uL 3.2-11.5 N RED BLOOD CELL (test code = RBC) 3.93 x10(6)/m 3.70-5.10 N HEMOGLOBIN (test code = HGB) 12.0 g/dL 12.0-15.0 N HEMATOCRIT (test code = HCT) 35.7 % 35.7-44.8 N MEAN CELL VOLUME (test code = MCV) 91 fL 80-100 N MEAN CELL HGB (test code = MCH) 30.6 pg 26.2-33.8 N MEAN CELL HGB CONCENTRATION (test code = MCHC) 33.8 g/dL 30.0-34 .0 N RED CELL DISTRIBUTION WIDTH (test code = RDW) 17.0 % 11.3-14. 5 H PLATELET COUNT (test code = PLT) 353 x10 3/uL 130-408 N MEAN PLATELET VOLUME (test code = MPV) 8.1 fl 6.4-10.5 N NEUTROPHIL % (test code = NT%) 55.0 % 40.0-70.0 N LYMPHOCYTE % (test code = LY%) 30.8 % 20-40 N MONOCYTE % (test code = MO%) 11.2 % 1-10 H EOSINOPHIL % (test code = EO%) 2.0 % 1.0-5.0 N BASOPHIL % (test code = BA%) 1.0 % 0.0-1.0 N NEUTROPHIL # (test code = NT#) 5.2 x10 3/uL 1.6-7.2 N LYMPHOCYTE # (test code = LY#) 2.90 x10 3/uL 1.1-2.7 H MONOCYTE # (test code = MO#) 1.1 x10 3/uL 0.3-0.8 H EOSINOPHIL # (test code = EO#) 0.2 x10 3/uL 0.0-0.5 N BASOPHIL # (test code = BA#) 0.1 x10 3/uL 0.0-0.1 N URINALYSIS [id number] 16:43:00* Test Item Value Reference Range Interpretation Comments UA COLOR (test code = COLU) Straw YELLOW UA APPEARANCE (test code = APPU) Clear CLEAR UA GLUCOSE DIPSTICK (test code = DGLUU) NEGATIVE NEGATIVE UA BILIRUBIN DIPSTICK (test code = BILU) NEGATIVE NEGATIVE UA KETONE DIPSTICK (test code = KETU) NEGATIVE NEGATIVE UA SPECIFIC GRAVITY (test code = SGU) 1.004 1.001-1.030 UA BLOOD DIPSTICK (test code = SAMANTHA) 2+ NEGATIVE UA PH DIPSTICK (test code = NICO) 7.0 5.0-9.0 UA PROTEIN DIPSTICK (test code = PROU) NEGATIVE NEGATIVE UA UROBILINOGEN DIPSTICK (test code = URO) NEGATIVE <=1.0 UA NITRITE DIPSTICK (test code = RISHI) NEGATIVE NEGATIVE UA ASCORBIC ACID DIPSTICK (test code = AAU) NEGATIVE UA LEUKOCYTE ESTERASE DIPSTICK (test code = LEUU) 2+ NEGA TIVE A UA WBC (test code = WBCU) 21-50 /HPF 0-5 UA RBC (test code = RBCU) 0-5 /HPF 0-5 UA EPITHELIAL CELLS (test code = EPIU) None /LPF NONE-FEW UA BACTERIA (test code = BACU) 1+ /HPF NONE SEEN A UA MUCUS (test code = MUCU) 1+ /LPF NONE SEEN - CT HEAD/BRAIN W/O [id number] 16:07:00Patient Name: ISAI VEGA Unit No: [id number] EXAMS: CPT: [id number] CT HEAD/BRAIN W/O CONT 70502 EXAM: CT HEAD WITHOUT CONTRAST CLINICAL HISTORY:GILBERT, different than pref HAs TECHNIQUE: Axial CT images of the head were obtained from the skull base to the vertex without contrast. Coronal and sagittal reconstructions were generated. CT radiation dose optimization is achieved for this examination by the use of a CT protocol in accordance with ACR practice guidelines and adherence to mold stacker recommendations. CT DLP: 367 mGy-cm COMPARISON:Head CT from 05/05/2017 FINDINGS: No new finding compared to head CT from 05/05/2017. No acute intracranial hemorrhage or regional mass effect. No suspicious parenchymal hypodensity. Normal brain volume for age. Normal size and configuration of the ventricular system. No hydrocephalus or extra-axial collection. No suspicious finding in the visualized orbits. No suspicious finding in the sella/suprasellar space, pineal region, or craniocervical junction. Clear visualized paranasal sinuses and mastoid air cells. No suspicious calvarial lesion. IMPRESSION: Negative head CT without contrast. Anurag Osborn MD Neuroradiology at 1607 Reported and signed by: ANURAG OSBORN MD CC: Magdi Mills MD Technologist: Michelle Nieves CTDI: 24.32 DLP: 367.23 Trscr Dt/Tm: 04/17/2019 (1607) by:Tess Orig Print D/T: S: 04/17/2019 (1611) BATCH NO: N/A Name: ISAI VEGA [facility] Phys: RADHA.01 - Fuentes Melendez MD [address] [facility] : 1960 Age: 58 Sex: [place] [id number] Loc: N.ERS Exam Date: 04/17/2019 Status: REG ER PH: FAX: PAGE 1 Signed Report - XR CHEST 1 [id number] 15:08:00Patient Name: ISAI VEGA Unit No: [id number] EXAMS: CPT: [id number] XR CHEST 1 V 82187 CHEST AP HISTORY PROVIDED: Chest pain, headache, backache, nausea COMPARISON: Normal exam 05/24/2018 FINDINGS: The lungs are clear. There is no infiltrate or atelectasis. The pulmonary vascular pattern is not congested. The heart size is normal. There has been no significant change when compared with the previous exam. CONCLUSION: Negative for acute radiographic abnormality. at 1508 Reported and signed by: Jarrett Oneal MD CC: Magdi Mills MD Technologist: Julio Wilder Time: DAP (Gy m2): Air Kerma (mGy): Trscr Dt/Tm: 04/17/2019 (1508) by:Prieto Orig Print D/T: S: 04/17/2019 (1510) BATCH NO: N/A Name: ISAI VEGA [facility] Phys: RADHA.Fuentes Mayorga MD [address] [facility] : 1960 Age: 58 Sex: F [place] [address] Loc: N.ERS Exam Date: 04/17/2019 Status: REG ER PH: FAX: PAGE 1 Signed Report Urine [id number] 08:35:00* Test Item Value Reference Range Interpretation Comments Urine Culture (test code = 630-4) Organism: KLEBSIELLA PNEUMONIAE [facility] HospitalCT ABDOMEN/PELVIS [id number] 14:11:00 [facility] [address] [place] [address] Patient Name: ISAI VEGA MR #: [id number] : 1960 Age/Sex: 58/F Req #: [id number] Adm Physician: Ordered by: ARIES AYALA TEMPERATURE REGULATOR PYROMETER Report #: [id number] Location: ER Room/Bed: Procedure: [id number] CT /CT ABDOMEN/PELVIS W Exam Date: 02/01/19 Exam Time: 1320 REPORT STATUS: Signed EXAMI NATION: CT of the abdomen and pelvis with contrast. TECHNIQUE: Spiral CT images of the abdomen and pelvis were performed from the lung bases to the le sser trochanters after the intravenous administration of 100 cc Isovue-370. Co jose and sagittal reformatted images were obtained. COMPARISON: CT abdomen and pelvis without contrast 01/18/2018 CLINICAL HISTORY:Abdominal pain, bowel resection 3 weeks ago at outside facility DISCUSSION: ABDOMEN /PELVIS: LOWER THORAX:Unremarkable. HEPATOBILIARY: Subcentimeter hypoa ttenuating lesions in segment 8 and 7 are too small to further characterize bu t likely represent small cysts. Similar lesion in segment 3. Findings are julia sly unchanged relative to 01/18/2018. No intra-or extrahepatic biliary ductal d ilation. The gallbladder has been removed. SPLEEN: Small splenic remnant left upper quadrant unchanged. PANCREAS: No focal masses or ductal dilatati on. ADRENALS: No adrenal nodules. KIDNEYS/URETERS: No hydronephrosis, stones, or solid mass lesions. PELVIC ORGANS/BLADDER: The urinary bladder is poorly evaluated secondary to underdistention. The uterus is not identified and has presumably been removed. No adnexal mass. PERITONEUM/RETROPERITO NEUM: No ascites. No pneumoperitoneum. LYMPH NODES: No pelvic sidewall, ret roperitoneal, or mesenteric lymphadenopathy. VESSELS: Atherosclerotic reji cification of the abdominal aorta and major branch vessels, without aneurysmal dilatation. Portal vein, splenic vein, and central superior mesenteric vein a re patent. 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 The large bowel shows no evidence of di stention or wall thickening. Descending and sigmoid colon diverticula without wall thickening or inflammatory change. The appendix is normal. No small bowel dilatation to suggest obstruction. BONES AND SOFT TISSUE: No osseous naz tructive lesions. Fat stranding along the superficial and deep margins of the bilateral rectus abdominis muscles compatible with recent surgery. No loculat ed fluid collection. IMPRESSION: Postsurgical changes of the superfic ial anterior abdominal wall and along the rectus musculature, without pneumope ritoneum, drainable fluid collection, or evidence of bowel obstruction. L arge bowel diverticulosis without findings of diverticulitis. Signed by: Dr Brandie Granados M.D. on 02/01/2019 2:22 PM Dictated By: ESTELITA GRANADOS MD 21 Transcribed By: FINA MYERS on 02/01/19 142 COPY TO: ARIES AYALA NP Sodium Level 2019-02-01 12:57:00* Test Item Value Reference Range Interpretation Comments Sodium Level (test code = 2951-2) 136 136-145 [facility] HospitalPotassium Rgccl3539-07-82 12:57:00* Test Item Value Reference Range Interpretation Comments Potassium Level (test code = 2823-3) 3.7 3.5-5.1 [facility] HospitalChloride Mkjbw6153-86-93 12:57:00* Test Item Value Reference Range Interpretation Comments Chloride Level (test code = 2075-0) 104 98-107 [facility] HospitalCarbon Dioxide Bznqt1330-13-69 12:57:00* Test Item Value Reference Range Interpretation Comments Carbon Dioxide Level (test code = 2028-9) 25 22-29 [facility] HospitalAnion Mrd6656-02-33 12:57:00* Test Item Value Reference Range Interpretation Comments Anion Gap (test code = 41435-1) 10.7 8-16 [facility] HospitalBlood Urea Bwjotdza7702-17-57 12:57:00* Test Item Value Reference Range Interpretation Comments Blood Urea Nitrogen (test code = 3094-0) 8 7-26 [facility] HospitalCreatinine2019-05-16 12:57:00* Test Item Value Reference Range Interpretation Comments Creatinine (test code = 2160-0) 0.67 0.57-1.11 [facility] HospitalBUN/Creatinine Dxike8260-22-97 12:57:00* Test Item Value Reference Range Interpretation Comments BUN/Creatinine Ratio (test code = 3097-3) 12 6-25 [facility] HospitalEstimat Glomerular Filtration Rate 2019-02-01 12:57:00* Test Item Value Reference Range Interpretation Comments Estimat Glomerular Filtration Rate (test code = 382366040) > 60 >60 Ranges were taken from the National Kidney Disease Education Program and the [facility] Kidney Foundation literature.Reference ranges:60 or greater: Hwxloc98-88 ( for 3 consecutive months): Chronic kidney disease 15 or less: Kidney failureMethodist Stone Oak HospitalGlucose Mzazu6861-79-94 12:57:00* Test Item Value Reference Range Interpretation Comments Glucose Level (test code = UJW7285) 87 74-118 [facility] HospitalCalcium Iudye8206-59-36 12:57:00* Test Item Value Reference Range Interpretation Comments Calcium Level (test code = 60341-6) 9.4 8.4-10.2 [facility] HospitalMagnesium Pesag4511-89-62 12:57:00* Test Item Value Reference Range Interpretation Comments Magnesium Level (test code = 07595-7) 1.8 1.3-2.1 [facility] HospitalTotal Kagcvvthd9741-49-33 12:57:00* Test Item Value Reference Range Interpretation Comments Total Bilirubin (test code = 1975-2) 0.3 0.2-1.2 [facility] HospitalAspartate Amino Transf (AST/SGOT) 2019-02-01 12:57:00* Test Item Value Reference Range Interpretation Comments Aspartate Amino Transf (AST/SGOT) (test code = Aspartate Amino Transf (AST/SGOT)) 18 5-34 [facility] HospitalAlanine Aminotransferase (ALT/SGPT) 2019-02-01 12:57:00* Test Item Value Reference Range Interpretation Comments Alanine Aminotransferase (ALT/SGPT) (test code = 1742-6) 13 0-55 [facility] HospitalTotal Akwepdv3879-26-12 12:57:00* Test Item Value Reference Range Interpretation Comments Total Protein (test code = 2885-2) 6.9 6.5-8.1 [facility] HospitalAlbumin2019-05-16 12:57:00* Test Item Value Reference Range Interpretation Comments Albumin (test code = 1751-7) 2.9 3.5-5.0 L [facility] HospitalGlobulin2019-05-16 12:57:00* Test Item Value Reference Range Interpretation Comments Globulin (test code = 81316-0) 4.0 2.3-3.5 H [facility] HospitalAlbumin/Globulin Xhjyh0726-18-08 12:57:00 * Test Item Value Reference Range Interpretation Comments Albumin/Globulin Ratio (test code = 1759-0) 0.7 0.8-2.0 L [facility] HospitalAlkaline Kehjidetwas7136-01-06 12:57:00* Test Item Value Reference Range Interpretation Comments Alkaline Phosphatase (test code = 6768-6) 105 40-150 [facility] HospitalAmylase Nrjkd9524-00-49 12:57:00* Test Item Value Reference Range Interpretation Comments Amylase Level (test code = 1798-8) 28 25-125 [facility] HospitalLipase2019-05-16 12:57:00* Test Item Value Reference Range Interpretation Comments Lipase (test code = 3040-3) 22 8-78 [facility] HospitalMagnesium Fskrb5632-93-24 12:57:00* Test Item Value Reference Range Interpretation Comments Magnesium Level (test code = 44716-7) 1.8 1.3-2.1 [facility] HospitalAmylase Mwhfy0204-00-35 12:57:00* Test Item Value Reference Range Interpretation Comments Amylase Level (test code = 1798-8) 28 25-125 [facility] HospitalLipase2019-05-16 12:57:00* Test Item Value Reference Range Interpretation Comments Lipase (test code = 3040-3) 78 [facility] HospitalWhite Blood Jaaiy6533-28-28 11:56:00* Test Item Value Reference Range Interpretation Comments White Blood Count (test code = 6690-2) 9.78 4.8-10.8 [facility] HospitalRed Blood Upejy3001-01-64 11:56:00* Test Item Value Reference Range Interpretation Comments Red Blood Count (test code = 789-8) 3.92 3.6-5.1 [facility] HospitalHemoglobin2019-05-16 11:56:00* Test Item Value Reference Range Interpretation Comments Hemoglobin (test code = 34196-9) 11.9 12.0-16.0 L Previous labs 01/18/18. 1156 on 02/01/19 by Betty LauxMethodist Stone Oak HospitalHematocrit2019-05-16 11:56:00* Test Item Value Reference Range Interpretation Comments Hematocrit (test code = 4544-3) 34.9 34.2-44.1 [facility] HospitalMean Corpuscular Bchaux0532-50-52 11:56:00* Test Item Value Reference Range Interpretation Comments Mean Corpuscular Volume (test code = 787-2) 89.0 81-99 [facility] HospitalMean Corpuscular Ufgzfvvbpk4077-03-66 11:56:00* Test Item Value Reference Range Interpretation Comments Mean Corpuscular Hemoglobin (test code = 785-6) 30.4 28-32 [facility] Corp[facility] Hemoglobin Concent 2019-02-01 11:56:00* Test Item Value Reference Range Interpretation Comments Mean Corpuscular Hemoglobin Concent (test code = 786-4) 34.1 31-35 [facility] HospitalRed Cell Distribution Eoaju7652-50-20 11:56:00* Test Item Value Reference Range Interpretation Comments Red Cell Distribution Width (test code = 60387-4) 15.0 11.7 -14.4 H [facility] HospitalPlatelet Fukyj2543-35-48 11:56:00* Test Item Value Reference Range Interpretation Comments Platelet Count (test code = 777-3) 390 140-360 H [facility] HospitalNeutrophils (%) (Auto)2019-02-01 11:56:00 * Test Item Value Reference Range Interpretation Comments Neutrophils (%) (Auto) (test code = 06871-9) 60.3 38.7-80.0 [facility] HospitalLymphocytes (%) (Auto)2019-02-01 11:56:00 * Test Item Value Reference Range Interpretation Comments Lymphocytes (%) (Auto) (test code = 736-9) 26.9 18.0-39.1 [facility] HospitalMonocytes (%) (Auto)2019-02-01 11:56:00* Test Item Value Reference Range Interpretation Comments Monocytes (%) (Auto) (test code = 5905-5) 9.6 4.4-11.3 [facility] HospitalEosinophils (%) (Auto)2019-02-01 11:56:00 * Test Item Value Reference Range Interpretation Comments Eosinophils (%) (Auto) (test code = 713-8) 2.2 0.0-6.0 [facility] HospitalBasophils (%) (Auto)2019-02-01 11:56:00* Test Item Value Reference Range Interpretation Comments Basophils (%) (Auto) (test code = 706-2) 0.8 0.0-1.0 [facility] HospitalIM GRANULOCYTES %2019-02-01 11:56:00* Test Item Value Reference Range Interpretation Comments IM GRANULOCYTES % (test code = IM GRANULOCYTES %) 0.2 0.0- 1.0 [facility] HospitalNeutrophils # (Auto)2019-02-01 11:56:00* Test Item Value Reference Range Interpretation Comments Neutrophils # (Auto) (test code = 751-8) 5.9 2.1-6.9 [facility] HospitalLymphocytes # (Auto)2019-02-01 11:56:00* Test Item Value Reference Range Interpretation Comments Lymphocytes # (Auto) (test code = 08679-2) 2.6 1.0-3.2 [facility] HospitalMonocytes # (Auto)2019-02-01 11:56:00* Test Item Value Reference Range Interpretation Comments Monocytes # (Auto) (test code = 742-7) 0.9 0.2-0.8 H [facility] HospitalEosinophils # (Auto)2019-02-01 11:56:00* Test Item Value Reference Range Interpretation Comments Eosinophils # (Auto) (test code = 711-2) 0.2 0.0-0.4 [facility] HospitalBasophils # (Auto)2019-02-01 11:56:00* Test Item Value Reference Range Interpretation Comments Basophils # (Auto) (test code = 704-7) 0.1 0.0-0.1 [facility] HospitalAbsolute Immature Granulocyte (auto 2019-02-01 11:56:00* Test Item Value Reference Range Interpretation Comments Absolute Immature Granulocyte (auto (chi t code = Absolute Immature Granulocyte (auto) 0.02 0-0.1 [facility] HospitalUrine [id number] 11:49:00* Test Item Value Reference Range Interpretation Comments Urine WBC (test code = 5821-4) NONE 0-5 [facility] HospitalUrine NVB7009-08-67 11:49:00* Test Item Value Reference Range Interpretation Comments Urine RBC (test code = 17593-9) NONE 0-5 [facility] HospitalUrine Xbqqcynh7612-85-17 11:49:00* Test Item Value Reference Range Interpretation Comments Urine Bacteria (test code = 92595-9) MODERATE NONE H [facility] HospitalUrine Epithelial Vtzwa4819-08-69 11:49:00 * Test Item Value Reference Range Interpretation Comments Urine Epithelial Cells (test code = 53609-5) FEW NONE [facility] HospitalUrine JAR5412-09-32 11:49:00* Test Item Value Reference Range Interpretation Comments Urine WBC (test code = 5821-4) NONE 0-5 [facility] HospitalUrine SDH0630-76-13 11:49:00* Test Item Value Reference Range Interpretation Comments Urine RBC (test code = 79162-2) NONE 0-5 [facility] HospitalUrine Xoxevqvh0276-88-82 11:49:00* Test Item Value Reference Range Interpretation Comments Urine Bacteria (test code = 83162-9) MODERATE NONE H [facility] HospitalUrine Epithelial Hreaa4595-08-29 11:49:00 * Test Item Value Reference Range Interpretation Comments Urine Epithelial Cells (test code = 47381-1) FEW NONE [facility] HospitalUrine Pfzfu0444-81-18 11:35:00* Test Item Value Reference Range Interpretation Comments Urine Color (test code = 5778-6) [facility]LLOW [facility]LLOW [facility] [id number] 11:35:00* Test Item Value Reference Range Interpretation Comments Urine Clarity (test code = 52512-9) SL CLOUDY CLEAR [facility] Specific [id number] 11:35:00 * Test Item Value Reference Range Interpretation Comments Urine Specific [place] (test code = 5811-5) 1.020 1.010-1.02 5 [facility] [id number] 11:35:00* Test Item Value Reference Range Interpretation Comments Urine pH (test code = 26961-2) 6.5 5-7 [facility] Leukocyte [id number] 11:35:00* Test Item Value Reference Range Interpretation Comments Urine Leukocyte Esterase (test code = 5799-2) NEGATIVE [facility]GATIVE [facility] [id number] 11:35:00* Test Item Value Reference Range Interpretation Comments Urine Nitrite (test code = 03158-0) NEGATIVE NEGATIVE [facility] [id number] 11:35:00* Test Item Value Reference Range Interpretation Comments Urine Protein (test code = 5804-0) NEGATIVE NEGATIVE [facility] Glucose (UA)2019-02-01 11:35:00* Test Item Value Reference Range Interpretation Comments Urine Glucose (UA) (test code = 2349-9) NEGATIVE NEGATIVE [facility] Qjsgjtx5972-12-02 11:35:00* Test Item Value Reference Range Interpretation Comments Urine Ketones (test code = 29689-8) NEGATIVE NEGATIVE [facility] Gzwanxkutypv8089-67-14 11:35:00* Test Item Value Reference Range Interpretation Comments Urine Urobilinogen (test code = 65832-4) 4 0.2-1 H [facility] Ecwyhblpy0678-58-50 11:35:00* Test Item Value Reference Range Interpretation Comments Urine Bilirubin (test code = 1978-6) NEGATIVE NEGATIVE [facility] [id number] 11:35:00* Test Item Value Reference Range Interpretation Comments Urine Blood (test code = 82671-1) NEGATIVE [facility]GATIVE [facility] [id number] 11:35:00* Test Item Value Reference Range Interpretation Comments Urine Color (test code = 5778-6) YELLOW YELLOW [facility] Zvtgwlm7809-07-06 11:35:00* Test Item Value Reference Range Interpretation Comments Urine Clarity (test code = 95894-1) SL CLOUDY CLEAR [facility] Specific Aasyptz1421-31-44 11:35:00 * Test Item Value Reference Range Interpretation Comments Urine Specific [place] (test code = 5811-5) 1.020 1.010-1.02 5 [facility] [id number] 11:35:00* Test Item Value Reference Range Interpretation Comments Urine pH (test code = 94961-8) 6.5 5-7 [facility] Leukocyte Ovaptipg8799-33-54 11:35:00* Test Item Value Reference Range Interpretation Comments Urine Leukocyte Esterase (test code = 5799-2) NEGATIVE NEGATIVE [facility] Hcqgwqw2711-15-15 11:35:00* Test Item Value Reference Range Interpretation Comments Urine Nitrite (test code = 42137-5) NEGATIVE NEGATIVE [facility] Litbunf6474-88-82 11:35:00* Test Item Value Reference Range Interpretation Comments Urine Protein (test code = 5804-0) NEGATIVE NEGATIVE [facility] Glucose (UA)2019-02-01 11:35:00* Test Item Value Reference Range Interpretation Comments Urine Glucose (UA) (test code = 2349-9) NEGATIVE NEGATIVE [facility] Hdxlrqj5761-45-47 11:35:00* Test Item Value Reference Range Interpretation Comments Urine Ketones (test code = 96360-2) NEGATIVE NEGATIVE [facility] Gpujfyzxerya9650-60-43 11:35:00* Test Item Value Reference Range Interpretation Comments Urine Urobilinogen (test code = 35358-9) 4 0.2-1 H [facility] Biltrxhea0007-44-04 11:35:00* Test Item Value Reference Range Interpretation Comments Urine Bilirubin (test code = 1978-6) NEGATIVE NEGATIVE [facility] Mafvm7074-70-82 11:35:00* Test Item Value Reference Range Interpretation Comments Urine Blood (test code = 51409-3) NEGATIVE NEGATIVE [facility] W/AUTO [id number] 06:13:00* Test Item Value Reference Range Interpretation Comments WHITE BLOOD CELL (test code = WBC) 8.9 K/mm3 4.5-12.5 N RED BLOOD CELL (test code = RBC) 2.90 mill/mm3 3.7-5.2 L HEMOGLOBIN (test code = HGB) 8.7 gram/dL 11.5-15.5 L HEMATOCRIT (test code = HCT) 26.9 % 36.0-46.0 L MEAN CELL VOLUME (test code = MCV) 92.8 fL 80-98 N MEAN CELL HGB (test code = MCH) 30.0 picogram 27.0-33.0 N MEAN CELL HGB CONCETRATION (test code = MCHC) 32.3 gram/dL 33.0-36. 0 L RED CELL DISTRIBUTION WIDTH (test code = RDW) 15.0 % 11.6-16. 2 N RED CELL DISTRIBUTION WIDTH SD (test code = RDW-SD) 50.1 fL 37 .0-51.0 N PLATELET COUNT (test code = PLT) 328 K/mm3 150-450 N MEAN PLATELET VOLUME (test code = MPV) 10.1 fL 6.7-11.0 N NEUTROPHIL % (test code = NT%) 66.3 % 39.0-69.0 N IMMATURE GRANULOCYTE % (test code = IG%) 0.2 % 0.0-5.0 N LYMPHOCYTE % (test code = LY%) 16.6 % 25.0-55.0 L MONOCYTE % (test code = MO%) 13.2 % 0.0-10.0 H EOSINOPHIL % (test code = EO%) 3.3 % 0.0-5.0 N BASOPHIL % (test code = BA%) 0.4 % 0.0-1.0 N NUCLEATED RBC % (test code = NRBC%) 0.0 % 0-0 N NEUTROPHIL # (test code = NT#) 5.90 K/mm3 1.8-7.7 N IMMATURE GRANULOCYTE # (test code = IG#) 0.02 x10 3/uL 0-0.03 N LYMPHOCYTE # (test code = LY#) 1.48 K/mm3 1.0-5.0 N MONOCYTE # (test code = MO#) 1.18 K/mm3 0-0.8 H EOSINOPHIL # (test code = EO#) 0.29 K/mm3 0.0-0.5 N BASOPHIL # (test code = BA#) 0.04 K/mm3 0.0-0.2 N NUCLEATED RBC # (test code = NRBC#) 0.00 K/mm3 0.0-0.1 N BASIC METABOLIC [id number] 17:12:00* Test Item Value Reference Range Interpretation Comments SODIUM (test code = NA) 137 mmol/L 136-145 N POTASSIUM (test code = K) 3.8 mmol/L 3.5-5.1 N CHLORIDE (test code = CL) 103.0 mmol/L 98-107 N CARBON DIOXIDE (test code = CO2) 27.0 mmol/L 21-32 N ANION GAP (test code = GAP) 10.8 10-20 N GLUCOSE (test code = GLU) 96 mg/dL 74-106 N BLOOD UREA NITROGEN (test code = BUN) 5 mg/dL 7-18 L GLOMERULAR FILTRATION RATE (test code = GFR) > 60 mL/min >=60 Estimated GFR by using Modified MDRD formula.Chronic kidney disease is defined as either kidney damageor GFR <60 mL/min/1.73 m2 for >3 months. CREATININE (test code = CREAT) 0.60 mg/dL 0.55-1.02 N Note change in reference range due to change in reagent. BUN/CREATININE RATIO (test code = BUN/CREA) 8.3 10-20 L CALCIUM (test code = CA) 8.4 mg/dL 8.5-10.1 L BASIC METABOLIC [id number] 17:11:00* Test Item Value Reference Range Interpretation Comments SODIUM (test code = NA) 137 mmol/L 136-145 N POTASSIUM (test code = K) 3.8 mmol/L 3.5-5.1 N CHLORIDE (test code = CL) 103.0 mmol/L 98-107 N CARBON DIOXIDE (test code = CO2) mmol/L 21-32 ANION GAP (test code = GAP) 10-20 GLUCOSE (test code = GLU) mg/dL 74-106 BLOOD UREA NITROGEN (test code = BUN) mg/dL 7-18 GLOMERULAR FILTRATION RATE (test code = GFR) mL/min >=60 CREATININE (test code = CREAT) mg/dL 0.55-1.02 BUN/CREATININE RATIO (test code = BUN/CREA) 10-20 CALCIUM (test code = CA) mg/dL 8.5-10.1 CBC W/AUTO [id number] 16:50:00* Test Item Value Reference Range Interpretation Comments WHITE BLOOD CELL (test code = WBC) 9.4 K/mm3 4.5-12.5 N RED BLOOD CELL (test code = RBC) 3.10 mill/mm3 3.7-5.2 L HEMOGLOBIN (test code = HGB) 9.2 gram/dL 11.5-15.5 L HEMATOCRIT (test code = HCT) 29.9 % 36.0-46.0 L MEAN CELL VOLUME (test code = MCV) 96.5 fL 80-98 N MEAN CELL HGB (test code = MCH) 29.7 picogram 27.0-33.0 N MEAN CELL HGB CONCETRATION (test code = MCHC) 30.8 gram/dL 33.0-36. 0 L RED CELL DISTRIBUTION WIDTH (test code = RDW) 15.0 % 11.6-16. 2 N RED CELL DISTRIBUTION WIDTH SD (test code = RDW-SD) 52.8 fL 37 .0-51.0 H PLATELET COUNT (test code = PLT) 307 K/mm3 150-450 N MEAN PLATELET VOLUME (test code = MPV) 9.8 fL 6.7-11.0 N NEUTROPHIL % (test code = NT%) 60.7 % 39.0-69.0 N IMMATURE GRANULOCYTE % (test code = IG%) 0.3 % 0.0-5.0 N LYMPHOCYTE % (test code = LY%) 18.9 % 25.0-55.0 L MONOCYTE % (test code = MO%) 16.8 % 0.0-10.0 H EOSINOPHIL % (test code = EO%) 3.0 % 0.0-5.0 N BASOPHIL % (test code = BA%) 0.3 % 0.0-1.0 N NUCLEATED RBC % (test code = NRBC%) 0.0 % 0-0 N NEUTROPHIL # (test code = NT#) 5.67 K/mm3 1.8-7.7 N IMMATURE GRANULOCYTE # (test code = IG#) 0.03 x10 3/uL 0-0.03 N LYMPHOCYTE # (test code = LY#) 1.77 K/mm3 1.0-5.0 N MONOCYTE # (test code = MO#) 1.57 K/mm3 0-0.8 H EOSINOPHIL # (test code = EO#) 0.28 K/mm3 0.0-0.5 N BASOPHIL # (test code = BA#) 0.03 K/mm3 0.0-0.2 N NUCLEATED RBC # (test code = NRBC#) 0.00 K/mm3 0.0-0.1 N MANUAL DIFF REQUIRED (test code = MDIFF) NO [id number] 16:03:00 RUN DATE: 12/28/18 [place] Subtext [facility] PAGE 1 RUN TIME: 1603 Specimen Inqui ry RUN USER: INTERFACE PATIENT: ISAI VEGA ACCT #: [id number] LOC: [facility] U #: [id number] AGE/SX: 58/F ROOM: [facility] RE12/15/18[facility] DR: Jarad Melendrez MD : 62 BED: A DIS: STATUS: ADM IN TLOC: SPEC #: [id number] RECD: 12/26/18 STATUS: JOSELINE GOULD #: [id number] EMERY: 12/25/18 [facility] DR: Estelita Frye MD ENTERED: 12/26/18 SP TYPE: COLON OTHR DR: Luis Brian i, MD, David MD Nino, Donald R MDORDERED: GROSS COPIES TO: Luis Summers MD [address] [place], [place] [address] Estelita Frye MD [address] [place], [place] [id number] [place] [address] [facility] [address] [place] [address] PROCEDURES: GROSS (12/28/18-1 356) TISSUES: SIGMOID COLON CLINICAL HISTORY COLLECTION AMBIKA E: 12/25/18 RECURRENT SIGMOID DIVERTICULITIS FINAL DIAGNOSIS Sigm oid colon, segmental resection: CHRONIC DIVERTICULITIS NEGATIVE FO R MALIGNANCY DMW/sm A 20922 CO NTINUED ON NEXT PAGE RUN DATE: 12/28/18 [facility] [employer] - Lab PAGE 2 RUN TIME: 1603 Specimen Inquiry RUN USER: INTERFACE SPEC #: [id number] PATIENT: ISAI VEGA #[id number] (Continued) MACROSCOPIC The specimen is received in formalin, labeled with the patient's name, identified as "sigmoid colon", and consists of 10 cm portion of colon with a diameter of 2.0 cm and a moderate amount of attached pericolo claudy adipose tissue. The specimen is opened to reveal valadez-pink colonic folds a nd multiple diverticula. There is some thickening of the bowel wall. No other gross abnormalities are identified. The pericolonic adipose tissue is examin ed for possible lymph nodes. Section code: 1A-1B- account retention representative sect ions of surgical margins; 1C-1D- account retention representative sections of diverticula; 1E- account retention representative sections of pericolonic adipose tissue and possible lymph nodes . GROSS PERFORMED AT [facility] [address] [place] [address] (p)[phone] MICROSCOPIC All of the stains, including any controls performed, stain appropriately. MICROSCOPIC PERFORMED AT [facility] [address] [place] [address] (p)[phone] PERFORMING SITE Diagnosis performed at: [facility], [address] [address] Signed SIGNATURE Mickie Santamaria MD 12/28/18 1603 END OF REPORT CBC W/MANUAL DIFF 2018-12-28 08:27:00* Test Item Value Reference Range Interpretation Comments WHITE BLOOD CELL (test code = WBC) 10.6 K/mm3 4.5-12.5 N RED BLOOD CELL (test code = RBC) 3.38 mill/mm3 3.7-5.2 L HEMOGLOBIN (test code = HGB) 9.8 gram/dL 11.5-15.5 L HEMATOCRIT (test code = HCT) 32.0 % 36.0-46.0 L MEAN CELL VOLUME (test code = MCV) 94.7 fL 80-98 N MEAN CELL HGB (test code = MCH) 29.0 picogram 27.0-33.0 N MEAN CELL HGB CONCETRATION (test code = MCHC) 30.6 gram/dL 33.0-36. 0 L RED CELL DISTRIBUTION WIDTH (test code = RDW) 14.5 % 11.6-16. 2 N RED CELL DISTRIBUTION WIDTH SD (test code = RDW-SD) 50.2 fL 37 .0-51.0 N PLATELET COUNT (test code = PLT) 299 K/mm3 150-450 N MEAN PLATELET VOLUME (test code = MPV) 10.2 fL 6.7-11.0 N IMMATURE GRANULOCYTE % (test code = IG%) 0.4 % 0.0-5.0 N NUCLEATED RBC % (test code = NRBC%) 0.0 % 0-0 N NEUTROPHIL # (test code = NT#) 7.39 K/mm3 1.8-7.7 N IMMATURE GRANULOCYTE # (test code = IG#) 0.04 x10 3/uL 0-0.03 H LYMPHOCYTE # (test code = LY#) 1.67 K/mm3 1.0-5.0 N MONOCYTE # (test code = MO#) 1.36 K/mm3 0-0.8 H EOSINOPHIL # (test code = EO#) 0.04 K/mm3 0.0-0.5 N BASOPHIL # (test code = BA#) 0.05 K/mm3 0.0-0.2 N NUCLEATED RBC # (test code = NRBC#) 0.00 K/mm3 0.0-0.1 N MANUAL DIFF REQUIRED (test code = MDIFF) YES STAIN ACCEPTABILITY (test code = STN ACCEPTABLE) STAIN ACCEPTABLE TOTAL CELLS COUNTED (test code = TCC) 115 #CELLS SEGMENTED NEUTROPHILS (test code = SEG) 76.5 % 39-69 H BAND NEUTROPHIL (test code = BAND) 0 % 0-10 N LYMPHOCYTE (test code = LYMPH) 14.8 % 25-55 L REACTIVE LYMPH (test code = RELYMPH) 0 % MONOCYTE (test code = MON) 8.7 % 0-10 N EOSINOPHIL (test code = EOS) 0 % 0.0-5.0 N BASOPHIL (test code = BASO) 0 % 0-1.0 N METAMYELOCYTE (test code = META) 0 % 0-0 N MYELOCYTE (test code = MYELO) 0 % 0.0-0.0 N PROMYELOCYTE (test code = PROM) 0 % 0-0 N HYPOCHROMIA (test code = HYPO) 1+ POIKILOCYTOSIS (test code = POIK) 1+ ANISOCYTOSIS (test code = ANISO) 1+ PLATELET ESTIMATE (test code = PLTEST) ADEQUATE PLATELET MORPHOLOGY (test code = PLTMORPH) SIZE VARIABLE OCCASIONAL GIANT FORM OBSERVED IMMATURE FORMS (test code = IMMAT) 0 % [id number] 06:43:00* Test Item Value Reference Range Interpretation Comments PHOSPHORUS (test code = PHOS) 3.1 mg/dL 2.5-4.9 N [id number] 06:43:00* Test Item Value Reference Range Interpretation Comments MAGNESIUM (test code = MAG) 1.9 mg/dL 1.8-2.4 N BASIC METABOLIC [id number] 06:43:00* Test Item Value Reference Range Interpretation Comments SODIUM (test code = NA) 143 mmol/L 136-145 N POTASSIUM (test code = K) 4.1 mmol/L 3.5-5.1 N CHLORIDE (test code = CL) 109.0 mmol/L 98-107 H CARBON DIOXIDE (test code = CO2) 29.0 mmol/L 21-32 N ANION GAP (test code = GAP) 9.1 10-20 L GLUCOSE (test code = GLU) 119 mg/dL 74-106 H BLOOD UREA NITROGEN (test code = BUN) 4 mg/dL 7-18 L GLOMERULAR FILTRATION RATE (test code = GFR) > 60 mL/min >=60 Estimated GFR by using Modified MDRD formula.Chronic kidney disease is defined as either kidney damageor GFR <60 mL/min/1.73 m2 for >3 months. CREATININE (test code = CREAT) 0.70 mg/dL 0.55-1.02 N Note change in reference range due to change in reagent. BUN/CREATININE RATIO (test code = BUN/CREA) 5.7 10-20 L CALCIUM (test code = CA) 8.9 mg/dL 8.5-10.1 N BASIC METABOLIC [id number] 06:24:00* Test Item Value Reference Range Interpretation Comments SODIUM (test code = NA) 143 mmol/L 136-145 N POTASSIUM (test code = K) 4.1 mmol/L 3.5-5.1 N CHLORIDE (test code = CL) 109.0 mmol/L 98-107 H CARBON DIOXIDE (test code = CO2) mmol/L 21-32 ANION GAP (test code = GAP) 10-20 GLUCOSE (test code = GLU) mg/dL 74-106 BLOOD UREA NITROGEN (test code = BUN) mg/dL 7-18 GLOMERULAR FILTRATION RATE (test code = GFR) mL/min >=60 CREATININE (test code = CREAT) mg/dL 0.55-1.02 BUN/CREATININE RATIO (test code = BUN/CREA) 10-20 CALCIUM (test code = CA) mg/dL 8.5-10.1 CBC W/MANUAL [id number] 06:10:00* Test Item Value Reference Range Interpretation Comments WHITE BLOOD CELL (test code = WBC) 10.6 K/mm3 4.5-12.5 N RED BLOOD CELL (test code = RBC) 3.38 mill/mm3 3.7-5.2 L HEMOGLOBIN (test code = HGB) 9.8 gram/dL 11.5-15.5 L HEMATOCRIT (test code = HCT) 32.0 % 36.0-46.0 L MEAN CELL VOLUME (test code = MCV) 94.7 fL 80-98 N MEAN CELL HGB (test code = MCH) 29.0 picogram 27.0-33.0 N MEAN CELL HGB CONCETRATION (test code = MCHC) 30.6 gram/dL 33.0-36. 0 L RED CELL DISTRIBUTION WIDTH (test code = RDW) 14.5 % 11.6-16. 2 N RED CELL DISTRIBUTION WIDTH SD (test code = RDW-SD) 50.2 fL 37 .0-51.0 N PLATELET COUNT (test code = PLT) 299 K/mm3 150-450 N MEAN PLATELET VOLUME (test code = MPV) 10.2 fL 6.7-11.0 N IMMATURE GRANULOCYTE % (test code = IG%) 0.4 % 0.0-5.0 N NUCLEATED RBC % (test code = NRBC%) 0.0 % 0-0 N NEUTROPHIL # (test code = NT#) 7.39 K/mm3 1.8-7.7 N IMMATURE GRANULOCYTE # (test code = IG#) 0.04 x10 3/uL 0-0.03 H LYMPHOCYTE # (test code = LY#) 1.67 K/mm3 1.0-5.0 N MONOCYTE # (test code = MO#) 1.36 K/mm3 0-0.8 H EOSINOPHIL # (test code = EO#) 0.04 K/mm3 0.0-0.5 N BASOPHIL # (test code = BA#) 0.05 K/mm3 0.0-0.2 N NUCLEATED RBC # (test code = NRBC#) 0.00 K/mm3 0.0-0.1 N MANUAL DIFF REQUIRED (test code = MDIFF) YES STAIN ACCEPTABILITY (test code = STN ACCEPTABLE) TOTAL CELLS COUNTED (test code = TCC) #CELLS SEGMENTED NEUTROPHILS (test code = SEG) % 39-69 LYMPHOCYTE (test code = LYMPH) % 25-55 MONOCYTE (test code = MON) % 0-10 MORPHOLOGY COMMENT (test code = MOC) PLATELET ESTIMATE (test code = PLTEST) PLATELET MORPHOLOGY (test code = PLTMORPH) URINALYSIS [id number] 02:04:00* Test Item Value Reference Range Interpretation Comments UA COLOR (test code = COLU) STRAW YELLOW UA APPEARANCE (test code = APPU) CLEAR CLEAR UA GLUCOSE DIPSTICK (test code = DGLUU) NEGATIVE mg/dL NEGATIVE UA BILIRUBIN DIPSTICK (test code = BILU) NEGATIVE mg/dL NEGATIVE UA KETONE DIPSTICK (test code = KETU) 5 (Trace) mg/dL NEGATIVE A UA SPECIFIC GRAVITY (test code = SGU) 1.003 1.001-1.035 UA BLOOD DIPSTICK (test code = SAMANTHA) 1+ (Small) mg/dL NEGATIVE A UA PH DIPSTICK (test code = NICO) 6.0 5.0-8.0 UA PROTEIN DIPSTICK (test code = PROU) NEGATIVE mg/dL NEGATIVE UA UROBILINIOGEN DIPSTICK (test code = URO) NEGATIVE mg/dL NEGATIVE UA NITRITE DIPSTICK (test code = RISHI) NEGATIVE NEGATIVE UA LEUKOCYTE ESTERASE W REFLEX (test code = LEUUR) NEGATIVE Delta/uL NEGATIVE UA WBC (test code = WBCU) 0-5 per HPF 0-5 UA RBC (test code = RBCU) 0-2 #/HPF 0-5 UA EPITHELIAL CELLS (test code = EPIU) Few (2-5/hpf) per HPF Few UA BACTERIA (test code = BACU) MANY #/HPF NONE A UA MUCUS (test code = MUCU) FEW #/LPF FEW Urine Source? Clean CatchURINALYSIS [id number] 02:01:00* Test Item Value Reference Range Interpretation Comments UA COLOR (test code = COLU) STRAW YELLOW UA APPEARANCE (test code = APPU) CLEAR CLEAR UA GLUCOSE DIPSTICK (test code = DGLUU) NEGATIVE mg/dL NEGATIVE UA BILIRUBIN DIPSTICK (test code = BILU) NEGATIVE mg/dL NEGATIVE UA KETONE DIPSTICK (test code = KETU) 5 (Trace) mg/dL NEGATIVE A UA SPECIFIC GRAVITY (test code = SGU) 1.003 1.001-1.035 UA BLOOD DIPSTICK (test code = SAMANTHA) 1+ (Small) mg/dL NEGATIVE A UA PH DIPSTICK (test code = NICO) 6.0 5.0-8.0 UA PROTEIN DIPSTICK (test code = PROU) NEGATIVE mg/dL NEGATIVE UA UROBILINIOGEN DIPSTICK (test code = URO) NEGATIVE mg/dL NEGATIVE UA NITRITE DIPSTICK (test code = RISHI) NEGATIVE NEGATIVE UA LEUKOCYTE ESTERASE W REFLEX (test code = LEUUR) NEGATIVE Delta/uL NEGATIVE UA WBC (test code = WBCU) per HPF 0-5 UA RBC (test code = RBCU) per HPF 0-5 UA EPITHELIAL CELLS (test code = EPIU) per HPF Few UA BACTERIA (test code = BACU) per HPF NONE Urine Source? Clean CatchCBC W/MANUAL [id number] 09:42:00* Test Item Value Reference Range Interpretation Comments WHITE BLOOD CELL (test code = WBC) 11.5 K/mm3 4.5-12.5 N RED BLOOD CELL (test code = RBC) 3.53 mill/mm3 3.7-5.2 L HEMOGLOBIN (test code = HGB) 10.2 gram/dL 11.5-15.5 L HEMATOCRIT (test code = HCT) 33.8 % 36.0-46.0 L MEAN CELL VOLUME (test code = MCV) 95.8 fL 80-98 N MEAN CELL HGB (test code = MCH) 28.9 picogram 27.0-33.0 N MEAN CELL HGB CONCETRATION (test code = MCHC) 30.2 gram/dL 33.0-36. 0 L RED CELL DISTRIBUTION WIDTH (test code = RDW) 14.9 % 11.6-16. 2 N RED CELL DISTRIBUTION WIDTH SD (test code = RDW-SD) 52.2 fL 37 .0-51.0 H PLATELET COUNT (test code = PLT) 344 K/mm3 150-450 N MEAN PLATELET VOLUME (test code = MPV) 10.4 fL 6.7-11.0 N IMMATURE GRANULOCYTE % (test code = IG%) 0.5 % 0.0-5.0 N NUCLEATED RBC % (test code = NRBC%) 0.0 % 0-0 N NEUTROPHIL # (test code = NT#) 9.17 K/mm3 1.8-7.7 H IMMATURE GRANULOCYTE # (test code = IG#) 0.06 x10 3/uL 0-0.03 H LYMPHOCYTE # (test code = LY#) 1.27 K/mm3 1.0-5.0 N MONOCYTE # (test code = MO#) 0.93 K/mm3 0-0.8 H EOSINOPHIL # (test code = EO#) 0.00 K/mm3 0.0-0.5 N BASOPHIL # (test code = BA#) 0.02 K/mm3 0.0-0.2 N NUCLEATED RBC # (test code = NRBC#) 0.00 K/mm3 0.0-0.1 N MANUAL DIFF REQUIRED (test code = MDIFF) YES STAIN ACCEPTABILITY (test code = STN ACCEPTABLE) STAIN ACCEPTABLE TOTAL CELLS COUNTED (test code = TCC) 115 #CELLS SEGMENTED NEUTROPHILS (test code = SEG) 86.1 % 39-69 H BAND NEUTROPHIL (test code = BAND) 0 % 0-10 N LYMPHOCYTE (test code = LYMPH) 10.4 % 25-55 L REACTIVE LYMPH (test code = RELYMPH) 0 % MONOCYTE (test code = MON) 0.9 % 0-10 N EOSINOPHIL (test code = EOS) 0 % 0.0-5.0 N BASOPHIL (test code = BASO) 0.9 % 0-1.0 N METAMYELOCYTE (test code = META) 0 % 0-0 N MYELOCYTE (test code = MYELO) 0 % 0.0-0.0 N PROMYELOCYTE (test code = PROM) 0 % 0-0 N ANISOCYTOSIS (test code = ANISO) 1+ MACROCYTOSIS (test code = MACR) 1+ PLATELET ESTIMATE (test code = PLTEST) ADEQUATE PLATELET MORPHOLOGY (test code = PLTMORPH) CLUMPING PRESENT IMMATURE FORMS (test code = IMMAT) 0 % BASIC METABOLIC [id number] 07:45:00* Test Item Value Reference Range Interpretation Comments SODIUM (test code = NA) 140 mmol/L 136-145 N POTASSIUM (test code = K) 4.5 mmol/L 3.5-5.1 N CHLORIDE (test code = CL) 107.0 mmol/L 98-107 N CARBON DIOXIDE (test code = CO2) 26.0 mmol/L 21-32 N ANION GAP (test code = GAP) 11.5 10-20 N GLUCOSE (test code = GLU) 96 mg/dL 74-106 N BLOOD UREA NITROGEN (test code = BUN) 10 mg/dL 7-18 N GLOMERULAR FILTRATION RATE (test code = GFR) > 60 mL/min >=60 Estimated GFR by using Modified MDRD formula.Chronic kidney disease is defined as either kidney damageor GFR <60 mL/min/1.73 m2 for >3 months. CREATININE (test code = CREAT) 0.70 mg/dL 0.55-1.02 N Note change in reference range due to change in reagent. BUN/CREATININE RATIO (test code = BUN/CREA) 14.3 10-20 N CALCIUM (test code = CA) 8.5 mg/dL 8.5-10.1 N BASIC METABOLIC [id number] 07:32:00* Test Item Value Reference Range Interpretation Comments SODIUM (test code = NA) 140 mmol/L 136-145 N POTASSIUM (test code = K) 4.5 mmol/L 3.5-5.1 N CHLORIDE (test code = CL) 107.0 mmol/L 98-107 N CARBON DIOXIDE (test code = CO2) mmol/L 21-32 ANION GAP (test code = GAP) 10-20 GLUCOSE (test code = GLU) mg/dL 74-106 BLOOD UREA NITROGEN (test code = BUN) mg/dL 7-18 GLOMERULAR FILTRATION RATE (test code = GFR) mL/min >=60 CREATININE (test code = CREAT) mg/dL 0.55-1.02 BUN/CREATININE RATIO (test code = BUN/CREA) 10-20 CALCIUM (test code = CA) mg/dL 8.5-10.1 CBC W/MANUAL [id number] 07:05:00* Test Item Value Reference Range Interpretation Comments WHITE BLOOD CELL (test code = WBC) 11.5 K/mm3 4.5-12.5 N RED BLOOD CELL (test code = RBC) 3.53 mill/mm3 3.7-5.2 L HEMOGLOBIN (test code = HGB) 10.2 gram/dL 11.5-15.5 L HEMATOCRIT (test code = HCT) 33.8 % 36.0-46.0 L MEAN CELL VOLUME (test code = MCV) 95.8 fL 80-98 N MEAN CELL HGB (test code = MCH) 28.9 picogram 27.0-33.0 N MEAN CELL HGB CONCETRATION (test code = MCHC) 30.2 gram/dL 33.0-36. 0 L RED CELL DISTRIBUTION WIDTH (test code = RDW) 14.9 % 11.6-16. 2 N RED CELL DISTRIBUTION WIDTH SD (test code = RDW-SD) 52.2 fL 37 .0-51.0 H PLATELET COUNT (test code = PLT) 344 K/mm3 150-450 N MEAN PLATELET VOLUME (test code = MPV) 10.4 fL 6.7-11.0 N IMMATURE GRANULOCYTE % (test code = IG%) 0.5 % 0.0-5.0 N NUCLEATED RBC % (test code = NRBC%) 0.0 % 0-0 N NEUTROPHIL # (test code = NT#) 9.17 K/mm3 1.8-7.7 H IMMATURE GRANULOCYTE # (test code = IG#) 0.06 x10 3/uL 0-0.03 H LYMPHOCYTE # (test code = LY#) 1.27 K/mm3 1.0-5.0 N MONOCYTE # (test code = MO#) 0.93 K/mm3 0-0.8 H EOSINOPHIL # (test code = EO#) 0.00 K/mm3 0.0-0.5 N BASOPHIL # (test code = BA#) 0.02 K/mm3 0.0-0.2 N NUCLEATED RBC # (test code = NRBC#) 0.00 K/mm3 0.0-0.1 N MANUAL DIFF REQUIRED (test code = MDIFF) YES STAIN ACCEPTABILITY (test code = STN ACCEPTABLE) TOTAL CELLS COUNTED (test code = TCC) #CELLS SEGMENTED NEUTROPHILS (test code = SEG) % 39-69 LYMPHOCYTE (test code = LYMPH) % 25-55 MONOCYTE (test code = MON) % 0-10 EOSINOPHIL (test code = EOS) % 0.0-5.0 CABOT RINGS (test code = CAB) MORPHOLOGY COMMENT (test code = MOC) PLATELET ESTIMATE (test code = PLTEST) PLATELET MORPHOLOGY (test code = PLTMORPH) CBC W/MANUAL [id number] 07:05:00* Test Item Value Reference Range Interpretation Comments WHITE BLOOD CELL (test code = WBC) 11.5 K/mm3 4.5-12.5 N RED BLOOD CELL (test code = RBC) 3.53 mill/mm3 3.7-5.2 L HEMOGLOBIN (test code = HGB) 10.2 gram/dL 11.5-15.5 L HEMATOCRIT (test code = HCT) 33.8 % 36.0-46.0 L MEAN CELL VOLUME (test code = MCV) 95.8 fL 80-98 N MEAN CELL HGB (test code = MCH) 28.9 picogram 27.0-33.0 N MEAN CELL HGB CONCETRATION (test code = MCHC) 30.2 gram/dL 33.0-36. 0 L RED CELL DISTRIBUTION WIDTH (test code = RDW) 14.9 % 11.6-16. 2 N RED CELL DISTRIBUTION WIDTH SD (test code = RDW-SD) 52.2 fL 37 .0-51.0 H PLATELET COUNT (test code = PLT) 344 K/mm3 150-450 N MEAN PLATELET VOLUME (test code = MPV) 10.4 fL 6.7-11.0 N IMMATURE GRANULOCYTE % (test code = IG%) 0.5 % 0.0-5.0 N NUCLEATED RBC % (test code = NRBC%) 0.0 % 0-0 N NEUTROPHIL # (test code = NT#) 9.17 K/mm3 1.8-7.7 H IMMATURE GRANULOCYTE # (test code = IG#) 0.06 x10 3/uL 0-0.03 H LYMPHOCYTE # (test code = LY#) 1.27 K/mm3 1.0-5.0 N MONOCYTE # (test code = MO#) 0.93 K/mm3 0-0.8 H EOSINOPHIL # (test code = EO#) 0.00 K/mm3 0.0-0.5 N BASOPHIL # (test code = BA#) 0.02 K/mm3 0.0-0.2 N NUCLEATED RBC # (test code = NRBC#) 0.00 K/mm3 0.0-0.1 N MANUAL DIFF REQUIRED (test code = MDIFF) YES STAIN ACCEPTABILITY (test code = STN ACCEPTABLE) TOTAL CELLS COUNTED (test code = TCC) #CELLS SEGMENTED NEUTROPHILS (test code = SEG) % 39-69 LYMPHOCYTE (test code = LYMPH) % 25-55 MONOCYTE (test code = MON) % 0-10 EOSINOPHIL (test code = EOS) % 0.0-5.0 CABOT RINGS (test code = CAB) MORPHOLOGY COMMENT (test code = MOC) PLATELET ESTIMATE (test code = PLTEST) PLATELET MORPHOLOGY (test code = PLTMORPH) CBC W/MANUAL [id number] 07:05:00* Test Item Value Reference Range Interpretation Comments WHITE BLOOD CELL (test code = WBC) 11.5 K/mm3 4.5-12.5 N RED BLOOD CELL (test code = RBC) 3.53 mill/mm3 3.7-5.2 L HEMOGLOBIN (test code = HGB) 10.2 gram/dL 11.5-15.5 L HEMATOCRIT (test code = HCT) 33.8 % 36.0-46.0 L MEAN CELL VOLUME (test code = MCV) 95.8 fL 80-98 N MEAN CELL HGB (test code = MCH) 28.9 picogram 27.0-33.0 N MEAN CELL HGB CONCETRATION (test code = MCHC) 30.2 gram/dL 33.0-36. 0 L RED CELL DISTRIBUTION WIDTH (test code = RDW) 14.9 % 11.6-16. 2 N RED CELL DISTRIBUTION WIDTH SD (test code = RDW-SD) 52.2 fL 37 .0-51.0 H PLATELET COUNT (test code = PLT) 344 K/mm3 150-450 N MEAN PLATELET VOLUME (test code = MPV) 10.4 fL 6.7-11.0 N IMMATURE GRANULOCYTE % (test code = IG%) 0.5 % 0.0-5.0 N NUCLEATED RBC % (test code = NRBC%) 0.0 % 0-0 N NEUTROPHIL # (test code = NT#) 9.17 K/mm3 1.8-7.7 H IMMATURE GRANULOCYTE # (test code = IG#) 0.06 x10 3/uL 0-0.03 H LYMPHOCYTE # (test code = LY#) 1.27 K/mm3 1.0-5.0 N MONOCYTE # (test code = MO#) 0.93 K/mm3 0-0.8 H EOSINOPHIL # (test code = EO#) 0.00 K/mm3 0.0-0.5 N BASOPHIL # (test code = BA#) 0.02 K/mm3 0.0-0.2 N NUCLEATED RBC # (test code = NRBC#) 0.00 K/mm3 0.0-0.1 N MANUAL DIFF REQUIRED (test code = MDIFF) YES STAIN ACCEPTABILITY (test code = STN ACCEPTABLE) TOTAL CELLS COUNTED (test code = TCC) #CELLS SEGMENTED NEUTROPHILS (test code = SEG) % 39-69 LYMPHOCYTE (test code = LYMPH) % 25-55 MONOCYTE (test code = MON) % 0-10 EOSINOPHIL (test code = EOS) % 0.0-5.0 MORPHOLOGY COMMENT (test code = MOC) PLATELET ESTIMATE (test code = PLTEST) PLATELET MORPHOLOGY (test code = PLTMORPH) CBC W/MANUAL [id number] 07:05:00* Test Item Value Reference Range Interpretation Comments WHITE BLOOD CELL (test code = WBC) 11.5 K/mm3 4.5-12.5 N RED BLOOD CELL (test code = RBC) 3.53 mill/mm3 3.7-5.2 L HEMOGLOBIN (test code = HGB) 10.2 gram/dL 11.5-15.5 L HEMATOCRIT (test code = HCT) 33.8 % 36.0-46.0 L MEAN CELL VOLUME (test code = MCV) 95.8 fL 80-98 N MEAN CELL HGB (test code = MCH) 28.9 picogram 27.0-33.0 N MEAN CELL HGB CONCETRATION (test code = MCHC) 30.2 gram/dL 33.0-36. 0 L RED CELL DISTRIBUTION WIDTH (test code = RDW) 14.9 % 11.6-16. 2 N RED CELL DISTRIBUTION WIDTH SD (test code = RDW-SD) 52.2 fL 37 .0-51.0 H PLATELET COUNT (test code = PLT) 344 K/mm3 150-450 N MEAN PLATELET VOLUME (test code = MPV) 10.4 fL 6.7-11.0 N IMMATURE GRANULOCYTE % (test code = IG%) 0.5 % 0.0-5.0 N NUCLEATED RBC % (test code = NRBC%) 0.0 % 0-0 N NEUTROPHIL # (test code = NT#) 9.17 K/mm3 1.8-7.7 H IMMATURE GRANULOCYTE # (test code = IG#) 0.06 x10 3/uL 0-0.03 H LYMPHOCYTE # (test code = LY#) 1.27 K/mm3 1.0-5.0 N MONOCYTE # (test code = MO#) 0.93 K/mm3 0-0.8 H EOSINOPHIL # (test code = EO#) 0.00 K/mm3 0.0-0.5 N BASOPHIL # (test code = BA#) 0.02 K/mm3 0.0-0.2 N NUCLEATED RBC # (test code = NRBC#) 0.00 K/mm3 0.0-0.1 N MANUAL DIFF REQUIRED (test code = MDIFF) YES STAIN ACCEPTABILITY (test code = STN ACCEPTABLE) TOTAL CELLS COUNTED (test code = TCC) #CELLS SEGMENTED NEUTROPHILS (test code = SEG) % 39-69 LYMPHOCYTE (test code = LYMPH) % 25-55 MONOCYTE (test code = MON) % 0-10 MORPHOLOGY COMMENT (test code = MOC) PLATELET ESTIMATE (test code = PLTEST) PLATELET MORPHOLOGY (test code = PLTMORPH) CBC W/MANUAL [id number] 07:05:00* Test Item Value Reference Range Interpretation Comments WHITE BLOOD CELL (test code = WBC) 11.5 K/mm3 4.5-12.5 N RED BLOOD CELL (test code = RBC) 3.53 mill/mm3 3.7-5.2 L HEMOGLOBIN (test code = HGB) 10.2 gram/dL 11.5-15.5 L HEMATOCRIT (test code = HCT) 33.8 % 36.0-46.0 L MEAN CELL VOLUME (test code = MCV) 95.8 fL 80-98 N MEAN CELL HGB (test code = MCH) 28.9 picogram 27.0-33.0 N MEAN CELL HGB CONCETRATION (test code = MCHC) 30.2 gram/dL 33.0-36. 0 L RED CELL DISTRIBUTION WIDTH (test code = RDW) 14.9 % 11.6-16. 2 N RED CELL DISTRIBUTION WIDTH SD (test code = RDW-SD) 52.2 fL 37 .0-51.0 H PLATELET COUNT (test code = PLT) 344 K/mm3 150-450 N MEAN PLATELET VOLUME (test code = MPV) 10.4 fL 6.7-11.0 N IMMATURE GRANULOCYTE % (test code = IG%) 0.5 % 0.0-5.0 N NUCLEATED RBC % (test code = NRBC%) 0.0 % 0-0 N NEUTROPHIL # (test code = NT#) 9.17 K/mm3 1.8-7.7 H IMMATURE GRANULOCYTE # (test code = IG#) 0.06 x10 3/uL 0-0.03 H LYMPHOCYTE # (test code = LY#) 1.27 K/mm3 1.0-5.0 N MONOCYTE # (test code = MO#) 0.93 K/mm3 0-0.8 H EOSINOPHIL # (test code = EO#) 0.00 K/mm3 0.0-0.5 N BASOPHIL # (test code = BA#) 0.02 K/mm3 0.0-0.2 N NUCLEATED RBC # (test code = NRBC#) 0.00 K/mm3 0.0-0.1 N MANUAL DIFF REQUIRED (test code = MDIFF) YES STAIN ACCEPTABILITY (test code = STN ACCEPTABLE) TOTAL CELLS COUNTED (test code = TCC) #CELLS SEGMENTED NEUTROPHILS (test code = SEG) % 39-69 LYMPHOCYTE (test code = LYMPH) % 25-55 MONOCYTE (test code = MON) % 0-10 EOSINOPHIL (test code = EOS) % 0.0-5.0 CABOT RINGS (test code = CAB) MORPHOLOGY COMMENT (test code = MOC) PLATELET ESTIMATE (test code = PLTEST) PLATELET MORPHOLOGY (test code = PLTMORPH) COMPREHENSIVE METABOLIC [id number] 11:59:00* Test Item Value Reference Range Interpretation Comments SODIUM (test code = NA) 142 mmol/L 136-145 N POTASSIUM (test code = K) 4.3 mmol/L 3.5-5.1 N CHLORIDE (test code = CL) 106.0 mmol/L 98-107 N CARBON DIOXIDE (test code = CO2) 32.0 mmol/L 21-32 N ANION GAP (test code = GAP) 8.3 10-20 L GLUCOSE (test code = GLU) 85 mg/dL 74-106 N BLOOD UREA NITROGEN (test code = BUN) 9 mg/dL 7-18 N GLOMERULAR FILTRATION RATE (test code = GFR) > 60 mL/min >=60 Estimated GFR by using Modified MDRD formula.Chronic kidney disease is defined as either kidney damageor GFR <60 mL/min/1.73 m2 for >3 months. CREATININE (test code = CREAT) 0.80 mg/dL 0.55-1.02 N Note change in reference range due to change in reagent. BUN/CREATININE RATIO (test code = BUN/CREA) 11.3 10-20 N TOTAL PROTEIN (test code = PROT) 7.1 gram/dL 6.4-8.2 N ALBUMIN (test code = ALB) 3.2 g/dL 3.4-5.0 L GLOBULIN (test code = GLOB) 3.9 gram/dL 2.7-4.2 N ALBUMIN/GLOBULIN RATIO (test code = A/G) 0.8 0.75-1.50 N CALCIUM (test code = CA) 9.1 mg/dL 8.5-10.1 N BILIRUBIN TOTAL (test code = BILT) 0.30 mg/dL 0.0-1.0 N SGOT/AST (test code = AST) 32 IUnit/L 15-37 N SGPT/ALT (test code = ALT) 28 IUnit/L 12-78 N ALKALINE PHOSPHATASE TOTAL (test code = ALKP) 96 IUnit/L 45-117 N Note change in reference range due to change in reagent. [id number] 11:59:00* Test Item Value Reference Range Interpretation Comments PHOSPHORUS (test code = PHOS) 3.6 mg/dL 2.5-4.9 N [id number] 11:59:00* Test Item Value Reference Range Interpretation Comments MAGNESIUM (test code = MAG) 2.4 mg/dL 1.8-2.4 N COMPREHENSIVE METABOLIC [id number] 11:46:00* Test Item Value Reference Range Interpretation Comments SODIUM (test code = NA) 142 mmol/L 136-145 N POTASSIUM (test code = K) 4.3 mmol/L 3.5-5.1 N CHLORIDE (test code = CL) 106.0 mmol/L 98-107 N CARBON DIOXIDE (test code = CO2) mmol/L 21-32 ANION GAP (test code = GAP) 10-20 GLUCOSE (test code = GLU) mg/dL 74-106 BLOOD UREA NITROGEN (test code = BUN) mg/dL 7-18 GLOMERULAR FILTRATION RATE (test code = GFR) mL/min >=60 CREATININE (test code = CREAT) mg/dL 0.55-1.02 BUN/CREATININE RATIO (test code = BUN/CREA) 10-20 TOTAL PROTEIN (test code = PROT) gram/dL 6.4-8.2 ALBUMIN (test code = ALB) g/dL 3.4-5.0 GLOBULIN (test code = GLOB) gram/dL 2.7-4.2 ALBUMIN/GLOBULIN RATIO (test code = A/G) 0.75-1.50 CALCIUM (test code = CA) mg/dL 8.5-10.1 BILIRUBIN TOTAL (test code = BILT) mg/dL 0.0-1.0 SGOT/AST (test code = AST) IUnit/L 15-37 SGPT/ALT (test code = ALT) IUnit/L 12-78 ALKALINE PHOSPHATASE TOTAL (test code = ALKP) IUnit/L 45-117 [id number] 11:46:00* Test Item Value Reference Range Interpretation Comments PHOSPHORUS (test code = PHOS) mg/dL 2.5-4.9 [id number] 11:46:00* Test Item Value Reference Range Interpretation Comments MAGNESIUM (test code = MAG) mg/dL 1.8-2.4 CBC W/AUTO [id number] 11:10:00* Test Item Value Reference Range Interpretation Comments WHITE BLOOD CELL (test code = WBC) 5.4 K/mm3 4.5-12.5 N RED BLOOD CELL (test code = RBC) 3.73 mill/mm3 3.7-5.2 N HEMOGLOBIN (test code = HGB) 10.9 gram/dL 11.5-15.5 L HEMATOCRIT (test code = HCT) 35.6 % 36.0-46.0 L MEAN CELL VOLUME (test code = MCV) 95.4 fL 80-98 N MEAN CELL HGB (test code = MCH) 29.2 picogram 27.0-33.0 N MEAN CELL HGB CONCETRATION (test code = MCHC) 30.6 gram/dL 33.0-36. 0 L RED CELL DISTRIBUTION WIDTH (test code = RDW) 14.8 % 11.6-16. 2 N RED CELL DISTRIBUTION WIDTH SD (test code = RDW-SD) 51.3 fL 37 .0-51.0 H PLATELET COUNT (test code = PLT) 354 K/mm3 150-450 N MEAN PLATELET VOLUME (test code = MPV) 10.2 fL 6.7-11.0 N NEUTROPHIL % (test code = NT%) 49.2 % 39.0-69.0 N IMMATURE GRANULOCYTE % (test code = IG%) 0.0 % 0.0-5.0 N LYMPHOCYTE % (test code = LY%) 33.3 % 25.0-55.0 N MONOCYTE % (test code = MO%) 13.8 % 0.0-10.0 H EOSINOPHIL % (test code = EO%) 2.2 % 0.0-5.0 N BASOPHIL % (test code = BA%) 1.5 % 0.0-1.0 H NUCLEATED RBC % (test code = NRBC%) 0.0 % 0-0 N NEUTROPHIL # (test code = NT#) 2.67 K/mm3 1.8-7.7 N IMMATURE GRANULOCYTE # (test code = IG#) 0.00 x10 3/uL 0-0.03 N LYMPHOCYTE # (test code = LY#) 1.81 K/mm3 1.0-5.0 N MONOCYTE # (test code = MO#) 0.75 K/mm3 0-0.8 N EOSINOPHIL # (test code = EO#) 0.12 K/mm3 0.0-0.5 N BASOPHIL # (test code = BA#) 0.08 K/mm3 0.0-0.2 N NUCLEATED RBC # (test code = NRBC#) 0.00 K/mm3 0.0-0.1 N MANUAL DIFF REQUIRED (test code = MDIFF) NO BASIC METABOLIC [id number] 08:28:00* Test Item Value Reference Range Interpretation Comments SODIUM (test code = NA) 138 mmol/L 136-145 N POTASSIUM (test code = K) 4.0 mmol/L 3.5-5.1 N CHLORIDE (test code = CL) 103.0 mmol/L 98-107 N CARBON DIOXIDE (test code = CO2) 28.0 mmol/L 21-32 N ANION GAP (test code = GAP) 11.0 10-20 N GLUCOSE (test code = GLU) 103 mg/dL 74-106 N BLOOD UREA NITROGEN (test code = BUN) 17 mg/dL 7-18 N GLOMERULAR FILTRATION RATE (test code = GFR) 57 mL/min >=60 Estimated GFR by using Modified MDRD formula.Chronic kidney disease is defined as either kidney damageor GFR <60 mL/min/1.73 m2 for >3 months. CREATININE (test code = CREAT) 1.00 mg/dL 0.55-1.02 N Note change in reference range due to change in reagent. BUN/CREATININE RATIO (test code = BUN/CREA) 17.0 10-20 N CALCIUM (test code = CA) 9.3 mg/dL 8.5-10.1 N PAULINA NOTIFIED NIURKA Garber[facility] 12/16/18 0506LIPID PROFILE (CORONARY RISK)2018-12-16 08:28:00* Test Item Value Reference Range Interpretation Comments TRIGLYCERIDES (test code = TRIG) 45 mg/dL 20-150 N CHOLESTEROL (test code = CHOL) 156 mg/dL 0-200 N CHOLESTEROL/HDL RATIO (test code = CHOLHDL) 2.0 RATIO 0-4.9 N RISK ASSOCIATED WITH CHOL/HDL RATIOS: Risk Male Female1/2 AVERAGE 3.43 3.27AVERAGE 4.97 4.442X AVERAGE 9.55 7.053X AVERAGE 23.39 11.04 REFERENCE VALUE IS RELATED TO RISK LEVELS ASRECOMMENDED BY THE [facility]. HEART, LUNG, AND BLOOD INST. HDL CHOLESTEROL (test code = HDL) 66 mg/dL 40-60 H LIPOPROTEIN LDL (test code = LDL) 79 mg/dL 100-129 L Reference Interval: mg/dL mmol/L Optimal <100 <2.6Near/above optimal 100-129 2.6- 3.3Borderline High 130-159 3.4-4.1High 160-189 4.1-4.9Very High >=190 >=4.9========= This LDL result is a direct measurement.========= HARDSTICK NOTIFIED NIURKA [facility] 12/16/18 [id number] 08:28:00* Test Item Value Reference Range Interpretation Comments PHOSPHORUS (test code = PHOS) 3.6 mg/dL 2.5-4.9 N KAROLSTYURY NOTIFIED NIURKA [facility] 12/16/18 [id number] 08:28:00* Test Item Value Reference Range Interpretation Comments MAGNESIUM (test code = MAG) 2.0 mg/dL 1.8-2.4 N PAULINA NOTIFIED NIURKA [facility] 12/16/18 0506THYROID PROFILE W/TSH 2018-12-16 08:28:00* Test Item Value Reference Range Interpretation Comments T3 UPTAKE (test code = T3UP) 33.0 % 30.0-40.0 N T4 (THYROXINE) (test code = T4) 11.8 ug/dL 4.5-13.9 N T7 (FREE THYROXINE INDEX) (test code = T7) 3.89 FTI 1.3-5.1 N THYROID STIMULATING HORMONE (test code = TSH) 1.020 uIU/mL 0.36-3.7 4 N TSH REFERENCE RANGES: EUTHYROID: 0.35 - 4.3 mIU/mL HYPO : > 5.5 mIU/mL HYPER : < 0.35 mIU/mL HARDSTICK NOTIFIED NIURKA [facility] 12/16/18 0506BASIC METABOLIC PANEL 2018-12-16 08:11:00* Test Item Value Reference Range Interpretation Comments SODIUM (test code = NA) 138 mmol/L 136-145 N POTASSIUM (test code = K) 4.0 mmol/L 3.5-5.1 N CHLORIDE (test code = CL) 103.0 mmol/L 98-107 N CARBON DIOXIDE (test code = CO2) mmol/L 21-32 ANION GAP (test code = GAP) 10-20 GLUCOSE (test code = GLU) mg/dL 74-106 BLOOD UREA NITROGEN (test code = BUN) mg/dL 7-18 GLOMERULAR FILTRATION RATE (test code = GFR) mL/min >=60 CREATININE (test code = CREAT) mg/dL 0.55-1.02 BUN/CREATININE RATIO (test code = BUN/CREA) 10-20 CALCIUM (test code = CA) mg/dL 8.5-10.1 HARDSTICK NOTIFIED NIURKA [facility] 12/16/18 0506LIPID PROFILE (CORONARY RISK)2018-12-16 08:11:00* Test Item Value Reference Range Interpretation Comments TRIGLYCERIDES (test code = TRIG) mg/dL 20-150 CHOLESTEROL (test code = CHOL) mg/dL 0-200 CHOLESTEROL/HDL RATIO (test code = CHOLHDL) RATIO 0-4.9 HDL CHOLESTEROL (test code = HDL) mg/dL 40-60 LIPOPROTEIN LDL (test code = LDL) mg/dL 100-129 HARDSTICK NOTIFIED NIURKA [facility] 12/16/18 [id number] 08:11:00* Test Item Value Reference Range Interpretation Comments PHOSPHORUS (test code = PHOS) mg/dL 2.5-4.9 KAROLSTICK NOTIFIED NIURKA [facility]ber[facility] 12/16/18 [id number] 08:11:00* Test Item Value Reference Range Interpretation Comments MAGNESIUM (test code = MAG) mg/dL 1.8-2.4 KAROLSTICK NOTIFIED NIURKA [facility] 12/16/18 0506THYROID PROFILE W/TSH 2018-12-16 08:11:00* Test Item Value Reference Range Interpretation Comments T3 UPTAKE (test code = T3UP) % 30.0-40.0 T4 (THYROXINE) (test code = T4) ug/dL 4.5-13.9 T7 (FREE THYROXINE INDEX) (test code = T7) FTI 1.3-5.1 THYROID STIMULATING HORMONE (test code = TSH) uIU/mL 0.36-3.7 4 KAROLYURY NOTIFIED NIURKA [facility] 12/16/18 [id number] 08:10:00* Test Item Value Reference Range Interpretation Comments GLYCOSYLATED HEMOGLOBIN (HA1C) (test code = GLYHGB) 5.6 % HbA1 4. 8-6.0 N ESTIMATED AVERAGE GLUCOSE (test code = EAG) 114 MG/DL PAULINA NOTIFIED NIURKA [facility] 12/16/18 0506CBC W/AUTO [id number] 07:52:00* Test Item Value Reference Range Interpretation Comments WHITE BLOOD CELL (test code = WBC) 7.3 K/mm3 4.5-12.5 N RED BLOOD CELL (test code = RBC) 3.69 mill/mm3 3.7-5.2 L HEMOGLOBIN (test code = HGB) 11.1 gram/dL 11.5-15.5 L HEMATOCRIT (test code = HCT) 34.5 % 36.0-46.0 L MEAN CELL VOLUME (test code = MCV) 93.5 fL 80-98 N MEAN CELL HGB (test code = MCH) 30.1 picogram 27.0-33.0 N MEAN CELL HGB CONCETRATION (test code = MCHC) 32.2 gram/dL 33.0-36. 0 L RED CELL DISTRIBUTION WIDTH (test code = RDW) 14.2 % 11.6-16. 2 N RED CELL DISTRIBUTION WIDTH SD (test code = RDW-SD) 48.8 fL 37 .0-51.0 N PLATELET COUNT (test code = PLT) 380 K/mm3 150-450 N MEAN PLATELET VOLUME (test code = MPV) 9.9 fL 6.7-11.0 N NEUTROPHIL % (test code = NT%) 53.4 % 39.0-69.0 N IMMATURE GRANULOCYTE % (test code = IG%) 0.1 % 0.0-5.0 N LYMPHOCYTE % (test code = LY%) 29.1 % 25.0-55.0 N MONOCYTE % (test code = MO%) 13.1 % 0.0-10.0 H EOSINOPHIL % (test code = EO%) 3.1 % 0.0-5.0 N BASOPHIL % (test code = BA%) 1.2 % 0.0-1.0 H NUCLEATED RBC % (test code = NRBC%) 0.0 % 0-0 N NEUTROPHIL # (test code = NT#) 3.91 K/mm3 1.8-7.7 N IMMATURE GRANULOCYTE # (test code = IG#) 0.01 x10 3/uL 0-0.03 N LYMPHOCYTE # (test code = LY#) 2.13 K/mm3 1.0-5.0 N MONOCYTE # (test code = MO#) 0.96 K/mm3 0-0.8 H EOSINOPHIL # (test code = EO#) 0.23 K/mm3 0.0-0.5 N BASOPHIL # (test code = BA#) 0.09 K/mm3 0.0-0.2 N NUCLEATED RBC # (test code = NRBC#) 0.00 K/mm3 0.0-0.1 N MANUAL DIFF REQUIRED (test code = MDIFF) NO HARDSTICK NIURKA CRYSTAL V.LAB.KP2 12/16/18 0506URINALYSIS [id number] 04:47:00* Test Item Value Reference Range Interpretation Comments UA COLOR (test code = COLU) LIGHT YELLOW YELLOW UA APPEARANCE (test code = APPU) CLEAR CLEAR UA GLUCOSE DIPSTICK (test code = DGLUU) NEGATIVE mg/dL NEGATIVE UA BILIRUBIN DIPSTICK (test code = BILU) NEGATIVE mg/dL NEGATIVE UA KETONE DIPSTICK (test code = KETU) NEGATIVE mg/dL NEGATIVE UA SPECIFIC GRAVITY (test code = SGU) 1.032 1.001-1.035 UA BLOOD DIPSTICK (test code = SAMANTHA) Negative NEGATIVE UA PH DIPSTICK (test code = NICO) 6.0 5.0-8.0 UA PROTEIN DIPSTICK (test code = PROU) NEGATIVE mg/dL NEGATIVE UA UROBILINIOGEN DIPSTICK (test code = URO) NEGATIVE mg/dL NEGATIVE UA NITRITE DIPSTICK (test code = RISHI) NEGATIVE NEGATIVE UA LEUKOCYTE ESTERASE W REFLEX (test code = LEUUR) TRACE NEG ATIVE A UA WBC (test code = WBCU) 0-5 per HPF 0-5 UA RBC (test code = RBCU) 0-2 #/HPF 0-5 UA EPITHELIAL CELLS (test code = EPIU) FEW per HPF FEW UA MUCUS (test code = MUCU) FEW #/LPF FEW Urine Source? Clean CatchURINALYSIS [id number] 04:45:00* Test Item Value Reference Range Interpretation Comments UA COLOR (test code = COLU) LIGHT YELLOW YELLOW UA APPEARANCE (test code = APPU) CLEAR CLEAR UA GLUCOSE DIPSTICK (test code = DGLUU) NEGATIVE mg/dL NEGATIVE UA BILIRUBIN DIPSTICK (test code = BILU) NEGATIVE mg/dL NEGATIVE UA KETONE DIPSTICK (test code = KETU) NEGATIVE mg/dL NEGATIVE UA SPECIFIC GRAVITY (test code = SGU) 1.032 1.001-1.035 UA BLOOD DIPSTICK (test code = SAMANTHA) Negative NEGATIVE UA PH DIPSTICK (test code = NICO) 6.0 5.0-8.0 UA PROTEIN DIPSTICK (test code = PROU) NEGATIVE mg/dL NEGATIVE UA UROBILINIOGEN DIPSTICK (test code = URO) NEGATIVE mg/dL NEGATIVE UA NITRITE DIPSTICK (test code = RISHI) NEGATIVE NEGATIVE UA LEUKOCYTE ESTERASE W REFLEX (test code = LEUUR) TRACE NEG ATIVE A UA WBC (test code = WBCU) per HPF 0-5 Urine Source? Clean Catch- CT ABD PELVIS [id number] 04:31:00 Name: ISAI VEGA [facility] : 1960 Age/S: 58 / F [address] [facility] Unit #: [id number] Loc: JAGD[place] [address] Phys: Jenny Santa MD Acct: [id number] Di s Date: Status: REG ER PHONE #: Exam Date: 12/15/2018409 FAX #: Reason: abd pain EXAMS: CPT CODE: [id number] CT ABD PELVIS W/CONT 25125 EXAM: - CT ABD PELVIS W/ CONT HISTORY: Abdominal pain. TECHNIQUE: Axial tomog kelli through the abdomen and pelvis were obtained after intravenous contra st. Coronal and sagittal reformatted images are provided. This exa m was performed according to our departmental dose-optimization program, w hich includes automated exposure control, adjustment of the mA and/or kV a ccording to patient size and/or use of iterative reconstruction technique. FINDINGS: The visualized lung bases are tj ar. Status post cholecystectomy. 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 The liver, pancreas, adrenal glands and k idneys demonstrate no significant abnormalities. The appendi x has a normal appearance. There is diverticulosis in distal colon. There is no evidence of acute inflammation. There is mild thickening of t he sigmoid colon wall and this could be due to decompression. There is no adenopathy or free fluid. There is no acute osseous abnormality. IMPRESSION: No s ignificant abnormalities demonstrated. Colon diverticulosis. at 0431 Reported and signed by: Tanvir Craig MD PAGE 1 Signed Report (CONTINUED) Name: ISAI VEGA [facility] : 1960 Age /S: 58 / F [address] [facility] Unit #: [id number] Loc: JAGDISH [place] [address] Phys: Román Santa MD Acct: [id number] Dis Date: Status: REG ER PHONE #: [phone] Exam Date: 12/15/2018409 FAX #: [phone] Reason: abd pain EXAMS: CPT CODE: [id number] CT ABD PELVIS W/CONT 83572 <Continued> CC: Román Santa MD Technologist:PARAMJIT GARCIA CTDI: DLP: Trnscb Date/Time: 12/15/2018 (0431) [email or web address] Orig Print D/T: S: 12/15/2018 (8565) CTDI: DLP: PAGE 2 Signed Report BASIC METABOLIC [id number] 03:49:00* Test Item Value Reference Range Interpretation Comments SODIUM (test code = NA) 138 mmol/L 136-145 N POTASSIUM (test code = K) 3.7 mmol/L 3.5-5.1 N CHLORIDE (test code = CL) 104.0 mmol/L 98-107 N CARBON DIOXIDE (test code = CO2) 28.0 mmol/L 21-32 N ANION GAP (test code = GAP) 9.7 10-20 L GLUCOSE (test code = GLU) 93 mg/dL 74-106 N BLOOD UREA NITROGEN (test code = BUN) 15 mg/dL 7-18 N GLOMERULAR FILTRATION RATE (test code = GFR) > 60 mL/min >=60 Estimated GFR by using Modified MDRD formula.Chronic kidney disease is defined as either kidney damageor GFR <60 mL/min/1.73 m2 for >3 months. CREATININE (test code = CREAT) 0.90 mg/dL 0.55-1.02 N Note change in reference range due to change in reagent. BUN/CREATININE RATIO (test code = BUN/CREA) 16.7 10-20 N CALCIUM (test code = CA) 9.2 mg/dL 8.5-10.1 N HEPATIC FUNCTION [id number] 03:49:00* Test Item Value Reference Range Interpretation Comments TOTAL PROTEIN (test code = PROT) 8.2 gram/dL 6.4-8.2 N ALBUMIN (test code = ALB) 3.5 g/dL 3.4-5.0 N GLOBULIN (test code = GLOB) 4.7 gram/dL 2.7-4.2 H ALBUMIN/GLOBULIN RATIO (test code = A/G) 0.7 0.75-1.50 L BILIRUBIN TOTAL (test code = BILT) 0.20 mg/dL 0.0-1.0 N BILIRUBIN DIRECT (test code = BILD) 0.10 mg/dL 0.0-0.20 N SGOT/AST (test code = AST) 22 IUnit/L 15-37 N SGPT/ALT (test code = ALT) 26 IUnit/L 12-78 N ALKALINE PHOSPHATASE TOTAL (test code = ALKP) 112 IUnit/L 45-117 N Note change in reference range due to change in reagent. [id number] 03:49:00* Test Item Value Reference Range Interpretation Comments LIPASE (test code = LIP) 159 U/L 73.0-393.0 N HCG SERUM [id number] 03:49:00* Test Item Value Reference Range Interpretation Comments HCG SERUM QUAL (test code = HCGQL) NEGATIVE NEGATIVE This HCGQL test is NOT applicable for MALE patients.Check with nurse about probable order error.If Tumor Marker Test needed, nurse should order test "HCGTU"(Test #[id number]) BASIC METABOLIC [id number] 03:45:00* Test Item Value Reference Range Interpretation Comments SODIUM (test code = NA) 138 mmol/L 136-145 N POTASSIUM (test code = K) 3.7 mmol/L 3.5-5.1 N CHLORIDE (test code = CL) 104.0 mmol/L 98-107 N CARBON DIOXIDE (test code = CO2) 28.0 mmol/L 21-32 N ANION GAP (test code = GAP) 9.7 10-20 L GLUCOSE (test code = GLU) 93 mg/dL 74-106 N BLOOD UREA NITROGEN (test code = BUN) 15 mg/dL 7-18 N GLOMERULAR FILTRATION RATE (test code = GFR) > 60 mL/min >=60 Estimated GFR by using Modified MDRD formula.Chronic kidney disease is defined as either kidney damageor GFR <60 mL/min/1.73 m2 for >3 months. CREATININE (test code = CREAT) 0.90 mg/dL 0.55-1.02 N Note change in reference range due to change in reagent. BUN/CREATININE RATIO (test code = BUN/CREA) 16.7 10-20 N CALCIUM (test code = CA) 9.2 mg/dL 8.5-10.1 N HEPATIC FUNCTION [id number] 03:45:00* Test Item Value Reference Range Interpretation Comments TOTAL PROTEIN (test code = PROT) 8.2 gram/dL 6.4-8.2 N ALBUMIN (test code = ALB) 3.5 g/dL 3.4-5.0 N GLOBULIN (test code = GLOB) 4.7 gram/dL 2.7-4.2 H ALBUMIN/GLOBULIN RATIO (test code = A/G) 0.7 0.75-1.50 L BILIRUBIN TOTAL (test code = BILT) 0.20 mg/dL 0.0-1.0 N BILIRUBIN DIRECT (test code = BILD) 0.10 mg/dL 0.0-0.20 N SGOT/AST (test code = AST) 22 IUnit/L 15-37 N SGPT/ALT (test code = ALT) 26 IUnit/L 12-78 N ALKALINE PHOSPHATASE TOTAL (test code = ALKP) 112 IUnit/L 45-117 N Note change in reference range due to change in reagent. [id number] 03:45:00* Test Item Value Reference Range Interpretation Comments LIPASE (test code = LIP) 159 U/L 73.0-393.0 N HCG SERUM [id number] 03:45:00* Test Item Value Reference Range Interpretation Comments HCG SERUM QUAL (test code = HCGQL) NEGATIVE BASIC METABOLIC [id number] 03:33:00* Test Item Value Reference Range Interpretation Comments SODIUM (test code = NA) 138 mmol/L 136-145 N POTASSIUM (test code = K) 3.7 mmol/L 3.5-5.1 N CHLORIDE (test code = CL) 104.0 mmol/L 98-107 N CARBON DIOXIDE (test code = CO2) mmol/L 21-32 ANION GAP (test code = GAP) 10-20 GLUCOSE (test code = GLU) mg/dL 74-106 BLOOD UREA NITROGEN (test code = BUN) mg/dL 7-18 GLOMERULAR FILTRATION RATE (test code = GFR) mL/min >=60 CREATININE (test code = CREAT) mg/dL 0.55-1.02 BUN/CREATININE RATIO (test code = BUN/CREA) 10-20 CALCIUM (test code = CA) mg/dL 8.5-10.1 HEPATIC FUNCTION [id number] 03:33:00* Test Item Value Reference Range Interpretation Comments TOTAL PROTEIN (test code = PROT) gram/dL 6.4-8.2 ALBUMIN (test code = ALB) g/dL 3.4-5.0 GLOBULIN (test code = GLOB) gram/dL 2.7-4.2 ALBUMIN/GLOBULIN RATIO (test code = A/G) 0.75-1.50 BILIRUBIN TOTAL (test code = BILT) mg/dL 0.0-1.0 BILIRUBIN DIRECT (test code = BILD) mg/dL 0.0-0.20 SGOT/AST (test code = AST) IUnit/L 15-37 SGPT/ALT (test code = ALT) IUnit/L 12-78 ALKALINE PHOSPHATASE TOTAL (test code = ALKP) IUnit/L 45-117 [id number] 03:33:00* Test Item Value Reference Range Interpretation Comments LIPASE (test code = LIP) U/L 73.0-393.0 HCG SERUM [id number] 03:33:00* Test Item Value Reference Range Interpretation Comments HCG SERUM QUAL (test code = HCGQL) NEGATIVE CBC W/O [id number] 03:20:00* Test Item Value Reference Range Interpretation Comments WHITE BLOOD CELL (test code = WBC) 7.5 K/mm3 4.5-12.5 N RED BLOOD CELL (test code = RBC) 4.14 mill/mm3 3.7-5.2 N HEMOGLOBIN (test code = HGB) 12.6 gram/dL 11.5-15.5 N HEMATOCRIT (test code = HCT) 38.3 % 36.0-46.0 N MEAN CELL VOLUME (test code = MCV) 92.5 fL 80-98 N MEAN CELL HGB (test code = MCH) 30.4 picogram 27.0-33.0 N MEAN CELL HGB CONCETRATION (test code = MCHC) 32.9 gram/dL 33.0-36. 0 L RED CELL DISTRIBUTION WIDTH (test code = RDW) 14.2 % 11.6-16. 2 N PLATELET COUNT (test code = PLT) 420 K/mm3 150-450 N MEAN PLATELET VOLUME (test code = MPV) 9.9 fL 6.7-11.0 N URINALYSIS [id number] 19:38:00* Test Item Value Reference Range Interpretation Comments UA COLOR (test code = COLU) LIGHT YELLOW YELLOW UA APPEARANCE (test code = APPU) CLEAR CLEAR UA GLUCOSE DIPSTICK (test code = DGLUU) NEGATIVE mg/dL NEGATIVE UA BILIRUBIN DIPSTICK (test code = BILU) NEGATIVE mg/dL NEGATIVE UA KETONE DIPSTICK (test code = KETU) 20 (Small) mg/dL NEGATIVE A UA SPECIFIC GRAVITY (test code = SGU) 1.013 1.001-1.035 UA BLOOD DIPSTICK (test code = SAMANTHA) Negative NEGATIVE UA PH DIPSTICK (test code = NICO) 5.0 5.0-8.0 UA PROTEIN DIPSTICK (test code = PROU) Negative mg/dL NEGATIVE UA UROBILINIOGEN DIPSTICK (test code = URO) NEGATIVE mg/dL NEGATIVE UA NITRITE DIPSTICK (test code = RISHI) NEGATIVE NEGATIVE UA LEUKOCYTE ESTERASE W REFLEX (test code = LEUUR) TRACE NEG ATIVE A UA WBC (test code = WBCU) 0-5 #/HPF 0-5 UA RBC (test code = RBCU) 0-2 #/HPF 0-5 UA EPITHELIAL CELLS (test code = EPIU) MOD per HPF FEW UA BACTERIA (test code = BACU) FEW #/HPF NONE A UA RENAL CELLS (test code = DEBBIE) 0-2 #/HPF 0-5 UA MUCUS (test code = MUCU) FEW #/LPF FEW Urine Source? MidstreamURINALYSIS [id number] 19:34:00* Test Item Value Reference Range Interpretation Comments UA COLOR (test code = COLU) LIGHT YELLOW YELLOW UA APPEARANCE (test code = APPU) CLEAR CLEAR UA GLUCOSE DIPSTICK (test code = DGLUU) NEGATIVE mg/dL NEGATIVE UA BILIRUBIN DIPSTICK (test code = BILU) NEGATIVE mg/dL NEGATIVE UA KETONE DIPSTICK (test code = KETU) 20 (Small) mg/dL NEGATIVE A UA SPECIFIC GRAVITY (test code = SGU) 1.013 1.001-1.035 UA BLOOD DIPSTICK (test code = SAMANTHA) Negative NEGATIVE UA PH DIPSTICK (test code = NCIO) 5.0 5.0-8.0 UA PROTEIN DIPSTICK (test code = PROU) Negative mg/dL NEGATIVE UA UROBILINIOGEN DIPSTICK (test code = URO) NEGATIVE mg/dL NEGATIVE UA NITRITE DIPSTICK (test code = RISHI) NEGATIVE NEGATIVE UA LEUKOCYTE ESTERASE W REFLEX (test code = LEUUR) TRACE NEG ATIVE A UA WBC (test code = WBCU) per HPF 0-5 Urine Source? MidstreamURINALYSIS [id number] 19:33:00* Test Item Value Reference Range Interpretation Comments UA COLOR (test code = COLU) LIGHT YELLOW YELLOW UA APPEARANCE (test code = APPU) CLEAR CLEAR UA GLUCOSE DIPSTICK (test code = DGLUU) NEGATIVE mg/dL NEGATIVE UA BILIRUBIN DIPSTICK (test code = BILU) NEGATIVE mg/dL NEGATIVE UA SPECIFIC GRAVITY (test code = SGU) 1.013 1.001-1.035 UA BLOOD DIPSTICK (test code = SAMANTHA) Negative NEGATIVE UA PH DIPSTICK (test code = NICO) 5.0 5.0-8.0 UA PROTEIN DIPSTICK (test code = PROU) Negative mg/dL NEGATIVE UA UROBILINIOGEN DIPSTICK (test code = URO) NEGATIVE mg/dL NEGATIVE UA NITRITE DIPSTICK (test code = RISHI) NEGATIVE NEGATIVE UA LEUKOCYTE ESTERASE W REFLEX (test code = LEUUR) NEG ATIVE UA WBC (test code = WBCU) per HPF 0-5 Urine Source? MidstreamBASIC METABOLIC [id number] 19:30:00* Test Item Value Reference Range Interpretation Comments SODIUM (test code = NA) 139 mmol/L 136-145 N POTASSIUM (test code = K) 4.1 mmol/L 3.5-5.1 N CHLORIDE (test code = CL) 106.0 mmol/L 98-107 N CARBON DIOXIDE (test code = CO2) 27.0 mmol/L 21-32 N ANION GAP (test code = GAP) 10.1 10-20 N GLUCOSE (test code = GLU) 88 mg/dL 74-106 N BLOOD UREA NITROGEN (test code = BUN) 12 mg/dL 7-18 N GLOMERULAR FILTRATION RATE (test code = GFR) > 60 mL/min >=60 Estimated GFR by using Modified MDRD formula.Chronic kidney disease is defined as either kidney damageor GFR <60 mL/min/1.73 m2 for >3 months. CREATININE (test code = CREAT) 0.70 mg/dL 0.55-1.02 N Note change in reference range due to change in reagent. BUN/CREATININE RATIO (test code = BUN/CREA) 17.1 10-20 N CALCIUM (test code = CA) 9.2 mg/dL 8.5-10.1 N [id number] 19:30:00* Test Item Value Reference Range Interpretation Comments AMYLASE (test code = PAUL) 32 Unit/L 25-115 N [id number] 19:30:00* Test Item Value Reference Range Interpretation Comments LIPASE (test code = LIP) 124 U/L 73.0-393.0 N BASIC METABOLIC [id number] 19:21:00* Test Item Value Reference Range Interpretation Comments SODIUM (test code = NA) 139 mmol/L 136-145 N POTASSIUM (test code = K) 4.1 mmol/L 3.5-5.1 N CHLORIDE (test code = CL) 106.0 mmol/L 98-107 N CARBON DIOXIDE (test code = CO2) mmol/L 21-32 ANION GAP (test code = GAP) 10-20 GLUCOSE (test code = GLU) mg/dL 74-106 BLOOD UREA NITROGEN (test code = BUN) mg/dL 7-18 GLOMERULAR FILTRATION RATE (test code = GFR) mL/min >=60 CREATININE (test code = CREAT) mg/dL 0.55-1.02 BUN/CREATININE RATIO (test code = BUN/CREA) 10-20 CALCIUM (test code = CA) mg/dL 8.5-10.1 [id number] 19:21:00* Test Item Value Reference Range Interpretation Comments AMYLASE (test code = PAUL) Unit/L 25-115 [id number] 19:21:00* Test Item Value Reference Range Interpretation Comments LIPASE (test code = LIP) U/L 73.0-393.0 CBC W/AUTO [id number] 18:57:00* Test Item Value Reference Range Interpretation Comments WHITE BLOOD CELL (test code = WBC) 9.5 K/mm3 4.5-12.5 N RED BLOOD CELL (test code = RBC) 3.81 mill/mm3 3.7-5.2 N HEMOGLOBIN (test code = HGB) 11.8 gram/dL 11.5-15.5 N HEMATOCRIT (test code = HCT) 35.7 % 36.0-46.0 L MEAN CELL VOLUME (test code = MCV) 93.7 fL 80-98 N MEAN CELL HGB (test code = MCH) 31.0 picogram 27.0-33.0 N MEAN CELL HGB CONCETRATION (test code = MCHC) 33.1 gram/dL 33.0-36. 0 N RED CELL DISTRIBUTION WIDTH (test code = RDW) 14.1 % 11.6-16. 2 N RED CELL DISTRIBUTION WIDTH SD (test code = RDW-SD) 49.0 fL 37 .0-51.0 N PLATELET COUNT (test code = PLT) 356 K/mm3 150-450 N MEAN PLATELET VOLUME (test code = MPV) 9.9 fL 6.7-11.0 N NEUTROPHIL % (test code = NT%) 61.0 % 39.0-69.0 N IMMATURE GRANULOCYTE % (test code = IG%) 0.3 % 0.0-5.0 N LYMPHOCYTE % (test code = LY%) 26.2 % 25.0-55.0 N MONOCYTE % (test code = MO%) 10.2 % 0.0-10.0 H EOSINOPHIL % (test code = EO%) 1.5 % 0.0-5.0 N BASOPHIL % (test code = BA%) 0.8 % 0.0-1.0 N NUCLEATED RBC % (test code = NRBC%) 0.0 % 0-0 N NEUTROPHIL # (test code = NT#) 5.82 K/mm3 1.8-7.7 N IMMATURE GRANULOCYTE # (test code = IG#) 0.03 x10 3/uL 0-0.03 N LYMPHOCYTE # (test code = LY#) 2.50 K/mm3 1.0-5.0 N MONOCYTE # (test code = MO#) 0.97 K/mm3 0-0.8 H EOSINOPHIL # (test code = EO#) 0.14 K/mm3 0.0-0.5 N BASOPHIL # (test code = BA#) 0.08 K/mm3 0.0-0.2 N NUCLEATED RBC # (test code = NRBC#) 0.00 K/mm3 0.0-0.1 N MANUAL DIFF REQUIRED (test code = MDIFF) NO CBC W/AUTO [id number] 18:50:00* Test Item Value Reference Range Interpretation Comments WHITE BLOOD CELL (test code = WBC) K/mm3 4.5-12.5 RED BLOOD CELL (test code = RBC) mill/mm3 3.7-5.2 HEMOGLOBIN (test code = HGB) 11.8 gram/dL 11.5-15.5 N HEMATOCRIT (test code = HCT) % 36.0-46.0 MEAN CELL VOLUME (test code = MCV) fL 80-98 MEAN CELL HGB (test code = MCH) picogram 27.0-33.0 MEAN CELL HGB CONCETRATION (test code = MCHC) gram/dL 33.0-36. 0 RED CELL DISTRIBUTION WIDTH (test code = RDW) % 11.6-16. 2 RED CELL DISTRIBUTION WIDTH SD (test code = RDW-SD) fL 37 .0-51.0 PLATELET COUNT (test code = PLT) K/mm3 150-450 MEAN PLATELET VOLUME (test code = MPV) fL 6.7-11.0 NEUTROPHIL % (test code = NT%) % 39.0-69.0 IMMATURE GRANULOCYTE % (test code = IG%) % 0.0-5.0 LYMPHOCYTE % (test code = LY%) % 25.0-55.0 MONOCYTE % (test code = MO%) % 0.0-10.0 EOSINOPHIL % (test code = EO%) % 0.0-5.0 BASOPHIL % (test code = BA%) % 0.0-1.0 NEUTROPHIL # (test code = NT#) K/mm3 1.8-7.7 LYMPHOCYTE # (test code = LY#) K/mm3 1.0-5.0 MONOCYTE # (test code = MO#) K/mm3 0-0.8 EOSINOPHIL # (test code = EO#) K/mm3 0.0-0.5 BASOPHIL # (test code = BA#) K/mm3 0.0-0.2 GASTRIC,[id number] 11:16:00 RUN DATE: 05/11/18 [place] [employer] PAGE 1 RUN TIME: 1116 Specimen Inqui ry RUN USER: INTERFACE PATIENT: ISAI VEGA ACCT #: [id number] LOC: INDIRA U #: [id number] AGE/SX: 57/F ROOM: RE05/10/18[facility] DR: Luis Summers : 62 BED: DIS: STATUS: [facility] TLOC: SPEC #: [id number] RECD: 05/10/18 STATUS: JOSELINE LUIS FERNANDO #: [id number] EMERY: 05/10/18 [facility] DR: Luis Summers MD ENTERED: 05/10/18 SP TYPE: GASTRIC BX OTHR DR: Justino Mills MD ORDERED: GROSS COPIES TO: Luis Summers MD [address], [address] [place] [address] Magdi Mills MD [address] [facility] [address] [place] [address] PROCEDURES: JULIA Mora (05/11/18-1034) TISSUES: 1. ANTRUM - BX 2. ESOPHAGUS, NOS - BX CLINICAL HISTORY COLLECTION DATE: 05/10/2018 HEARTBURN, NAUS EA, EPIGASTRIC PAIN POST-OP DIAGNOSIS: GASTRITIS, REFLUX, POST SLEEVE FINAL DIAGNOSIS Stomach, antrum, biopsy: REACTIVE GASTROPATHY C ONTROLLED GIEMSA STAIN NEGATIVE FOR HELICOBACTER ORGANISMS NEGATIVE FOR I NTESTINAL METAPLASIA AND DYSPLASIA NEGATIVE FOR MALIGNANCY Esophagu s, biopsy: SQUAMOUS EPITHELIUM WITH NO SIGNIFICANT PATHOLOGIC ALTERATION; NO INTRAEPITHELIAL NEUTROPHILS OR EOSINOPHILS IDENTIFIED NEGATI VE FOR MALIGNANCY AURELIA/gm D [id number], [id number] CONTINUED ON NEXT PAGE RUN DATE: 05/11/18 [facility] PAGE 2 RUN TIME: 1116 Specimen Inquiry RUN USER: INTERFACE SPEC #: [id number] :[id number] PATIENT: ISAI VEGA #[id number] (Continue d) MACROSCOPIC The first specimen is received in forma jasmin, labeled with the patient's name, identified as "antrum", and consists of pink biopsy tissue measuring 0.3 cm, submitted as (1) for H E and Giemsa stain s. The second specimen is received in formalin, labeled with the patient's name, identified as "esophagus", and consists of gutierrez- valadez biopsy tissue mariann uring 0.25 cm in aggregate, submitted as (2). GROSS PERFORMED AT [facility] [address], [place], [place] [address] [phone])[phone] MICROSCOPIC MICROSCOPIC PERFORMED AT [facility] All of the stains, including any controls performed, stain approp sharona. [facility] [address], [place] [address] (P)[phone] PERFORMING SITE Processed at: [facility], [place] [address] [place] [address] Signed SIGNATURE ON FILE Nubia Ariza 05/11/18 1116 END OF REPORT Creatine Kinase [id number] 10:28:00* Test Item Value Reference Range Interpretation Comments Creatine Kinase MB (test code = 61365-1) 1.60 0-5.0 [facility] [id number] 10:28:00* Test Item Value Reference Range Interpretation Comments Troponin I (test code = AYC8963) -0.001 0-0.300 [facility] [id number] 10:28:00* Test Item Value Reference Range Interpretation Comments Creatine Kinase MB (test code = 20606-7) 1.60 0-5.0 [facility] [id number] 10:28:00* Test Item Value Reference Range Interpretation Comments Troponin I (test code = ILF8141) -0.001 0-0.300 [facility] [id number] 10:23:00* Test Item Value Reference Range Interpretation Comments Sodium Level (test code = 2951-2) 137 136-145 [facility]Potassium [id number] 10:23:00* Test Item Value Reference Range Interpretation Comments Potassium Level (test code = 2823-3) 4.2 3.5-5.1 [facility] HospitalChloride [id number] 10:23:00* Test Item Value Reference Range Interpretation Comments Chloride Level (test code = 2075-0) 104 98-107 [facility] HospitalCarbon Dioxide [id number] 10:23:00* Test Item Value Reference Range Interpretation Comments Carbon Dioxide Level (test code = 2028-9) 25 22-29 [facility] HospitalAnion [id number] 10:23:00* Test Item Value Reference Range Interpretation Comments Anion Gap (test code = 70728-6) 12.2 8-16 [facility] HospitalBlood Urea [id number] 10:23:00* Test Item Value Reference Range Interpretation Comments Blood Urea Nitrogen (test code = 3094-0) 15 7-26 [facility] HospitalCreatinine2018-05-02 10:23:00* Test Item Value Reference Range Interpretation Comments Creatinine (test code = 2160-0) 0.79 0.57-1.11 [facility] HospitalBUN/Creatinine [id number] 10:23:00* Test Item Value Reference Range Interpretation Comments BUN/Creatinine Ratio (test code = 3097-3) 19 6-25 [facility] HospitalEstimat Glomerular Filtration Rate 2018-01-18 10:23:00* Test Item Value Reference Range Interpretation Comments Estimat Glomerular Filtration Rate (test code = 71217-5) 60- >60 Ranges were taken from the National Kidney Disease Education Program and the [facility] Kid[facility] Foundation literature.Reference ranges:60 or greater: Puxxlq54-15 ( for 3 consecutive months): Chronic kidney disease 15 or less: Kidney failureCHI St. Lukes - Patients Medical CenterGlucose Zyrxq0270-32-66 10:23:00* Test Item Value Reference Range Interpretation Comments Glucose Level (test code = DUW5310) 88 74-118 [facility] HospitalCalcium Iojbl7738-78-84 10:23:00* Test Item Value Reference Range Interpretation Comments Calcium Level (test code = 75181-3) 9.6 8.4-10.2 [facility] HospitalTotal Jyfvuaetd7930-73-70 10:23:00* Test Item Value Reference Range Interpretation Comments Total Bilirubin (test code = 1975-2) 0.5 0.2-1.2 [facility] HospitalAspartate Amino Transf (AST/SGOT) 2018-01-18 10:23:00* Test Item Value Reference Range Interpretation Comments Aspartate Amino Transf (AST/SGOT) (test code = Aspartate Amino Transf (AST/SGOT)) 27 5-34 [facility] HospitalAlanine Aminotransferase (ALT/SGPT) 2018-01-18 10:23:00* Test Item Value Reference Range Interpretation Comments Alanine Aminotransferase (ALT/SGPT) (test code = 1742-6) 25 0-55 [facility] Vujuinm5975-05-97 10:23:00* Test Item Value Reference Range Interpretation Comments Total Protein (test code = 2885-2) 7.4 6.5-8.1 [facility] HospitalAlbumin2018-05-02 10:23:00* Test Item Value Reference Range Interpretation Comments Albumin (test code = 1751-7) 3.5 3.5-5.0 [facility] HospitalGlobulin2018-05-02 10:23:00* Test Item Value Reference Range Interpretation Comments Globulin (test code = 01395-8) 3.9 2.3-3.5 H [facility] HospitalAlbumin/Globulin [id number] 10:23:00 * Test Item Value Reference Range Interpretation Comments Albumin/Globulin Ratio (test code = 1759-0) 0.9 0.8-2.0 [facility] HospitalAlkaline Aobkjxcniju7276-23-64 10:23:00* Test Item Value Reference Range Interpretation Comments Alkaline Phosphatase (test code = 6768-6) 89 40-150 [facility] HospitalCreatine Ftueox2894-74-87 10:23:00* Test Item Value Reference Range Interpretation Comments Creatine Kinase (test code = 2157-6) 97 29-168 [facility] HospitalLipase2018-05-02 10:23:00* Test Item Value Reference Range Interpretation Comments Lipase (test code = 3040-3) 51 8-78 [facility] Hospitalodium [id number] 10:23:00* Test Item Value Reference Range Interpretation Comments Sodium Level (test code = 2951-2) 137 136-145 [facility] HospitalPotassium Anrjm0592-19-67 10:23:00* Test Item Value Reference Range Interpretation Comments Potassium Level (test code = 2823-3) 4.2 3.5-5.1 [facility] HospitalChloride Ftalq7558-10-10 10:23:00* Test Item Value Reference Range Interpretation Comments Chloride Level (test code = 2075-0) 104 98-107 [facility] HospitalCarbon Dioxide Klppx8963-25-06 10:23:00* Test Item Value Reference Range Interpretation Comments Carbon Dioxide Level (test code = 2028-9) 25 22-29 [facility] HospitalAnion [id number] 10:23:00* Test Item Value Reference Range Interpretation Comments Anion Gap (test code = 12274-3) 12.2 8-16 [facility] HospitalBlood Urea Fkrmdwpo0359-71-30 10:23:00* Test Item Value Reference Range Interpretation Comments Blood Urea Nitrogen (test code = 3094-0) 15 7-26 [facility] HospitalCreatinine2018-05-02 10:23:00* Test Item Value Reference Range Interpretation Comments Creatinine (test code = 2160-0) 0.79 0.57-1.11 [facility] HospitalBUN/Creatinine Gnqnx4402-93-49 10:23:00* Test Item Value Reference Range Interpretation Comments BUN/Creatinine Ratio (test code = 3097-3) 19 6-25 [facility] HospitalEstimat Glomerular Filtration Rate 2018-01-18 10:23:00* Test Item Value Reference Range Interpretation Comments Estimat Glomerular Filtration Rate (test code = 23598-5) 60- >60 Ranges were taken from the National Kidney Disease Education Program and the [facility] Foundation literature.Reference ranges:60 or greater: Ffjcka28-81 ( for 3 consecutive months): Chronic kidney disease 15 or less: Kidney failureMethodist Stone Oak HospitalGlucose Brfjq4468-33-77 10:23:00* Test Item Value Reference Range Interpretation Comments Glucose Level (test code = FLN8773) 88 74-118 [facility] HospitalCalcium Lsjng2957-31-22 10:23:00* Test Item Value Reference Range Interpretation Comments Calcium Level (test code = 67339-3) 9.6 8.4-10.2 [facility] Hffxyxbjg1297-05-06 10:23:00* Test Item Value Reference Range Interpretation Comments Total Bilirubin (test code = 1975-2) 0.5 0.2-1.2 [facility] HospitalAspartate Amino Transf (AST/SGOT) 2018-01-18 10:23:00* Test Item Value Reference Range Interpretation Comments Aspartate Amino Transf (AST/SGOT) (test code = Aspartate Amino Transf (AST/SGOT)) 27 5-34 [facility] HospitalAlanine Aminotransferase (ALT/SGPT) 2018-01-18 10:23:00* Test Item Value Reference Range Interpretation Comments Alanine Aminotransferase (ALT/SGPT) (test code = 1742-6) 25 0-55 [facility] HospitalTotal Fjqztxe3698-53-97 10:23:00* Test Item Value Reference Range Interpretation Comments Total Protein (test code = 2885-2) 7.4 6.5-8.1 [facility] HospitalAlbumin2018-05-02 10:23:00* Test Item Value Reference Range Interpretation Comments Albumin (test code = 1751-7) 3.5 3.5-5.0 [facility] HospitalGlobulin2018-05-02 10:23:00* Test Item Value Reference Range Interpretation Comments Globulin (test code = 24525-2) 3.9 2.3-3.5 H [facility] HospitalAlbumin/Globulin Jwufw5227-56-44 10:23:00 * Test Item Value Reference Range Interpretation Comments Albumin/Globulin Ratio (test code = 1759-0) 0.9 0.8-2.0 [facility] HospitalAlkaline Axrwigeyagv1078-48-31 10:23:00* Test Item Value Reference Range Interpretation Comments Alkaline Phosphatase (test code = 6768-6) 89 40-150 [facility] HospitalCreatine Skcxts9625-10-34 10:23:00* Test Item Value Reference Range Interpretation Comments Creatine Kinase (test code = 2157-6) 97 29-168 [facility] HospitalLipase2018-05-02 10:23:00* Test Item Value Reference Range Interpretation Comments Lipase (test code = 3040-3) 51 8-78 [facility] HospitalUrine [id number] 10:17:00* Test Item Value Reference Range Interpretation Comments Urine WBC (test code = 5821-4) NONE 0-5 [facility] HospitalUrine [id number] 10:17:00* Test Item Value Reference Range Interpretation Comments Urine RBC (test code = 80519-1) NONE 0-5 [facility] HospitalUrine Tupgupzb6797-45-39 10:17:00* Test Item Value Reference Range Interpretation Comments Urine Bacteria (test code = 92455-4) NONE NONE [facility] HospitalUrine Epithelial Rexay0858-09-86 10:17:00 * Test Item Value Reference Range Interpretation Comments Urine Epithelial Cells (test code = 50229-8) FEW NONE [facility] HospitalUrine [id number] 10:17:00* Test Item Value Reference Range Interpretation Comments Urine WBC (test code = 5821-4) NONE 0-5 [facility] HospitalUrine [id number] 10:17:00* Test Item Value Reference Range Interpretation Comments Urine RBC (test code = 35059-4) NONE 0-5 [facility] HospitalUrine Pfhsnvhd5528-71-35 10:17:00* Test Item Value Reference Range Interpretation Comments Urine Bacteria (test code = 99566-2) NONE NONE [facility] HospitalUrine Epithelial Kznkp0743-80-66 10:17:00 * Test Item Value Reference Range Interpretation Comments Urine Epithelial Cells (test code = 16719-3) FEW NONE [facility] HospitalUrine Uapjk9360-23-62 10:03:00* Test Item Value Reference Range Interpretation Comments Urine Color (test code = 5778-6) YELLOW YELLOW [facility] HospitalUrine Uomkfgj6967-17-92 10:03:00* Test Item Value Reference Range Interpretation Comments Urine Clarity (test code = 81532-3) CLEAR CLEAR [facility] Specific Zpmlxyd1982-30-85 10:03:00 * Test Item Value Reference Range Interpretation Comments Urine Specific [place] (test code = 5811-5) 1.010 1.010-1.02 5 [facility] HospitalUrine [id number] 10:03:00* Test Item Value Reference Range Interpretation Comments Urine pH (test code = 19272-9) 7 5-7 [facility] Leukocyte [id number] 10:03:00* Test Item Value Reference Range Interpretation Comments Urine Leukocyte Esterase (test code = 5799-2) NEGATIVE NEGATIVE [facility] [id number] 10:03:00* Test Item Value Reference Range Interpretation Comments Urine Nitrite (test code = 93793-1) NEGATIVE [facility]IVE [facility] [id number] 10:03:00* Test Item Value Reference Range Interpretation Comments Urine Protein (test code = 5804-0) [facility]GATIVE [facility]GATIVE [facility] Glucose (UA)2018-01-18 10:03:00* Test Item Value Reference Range Interpretation Comments Urine Glucose (UA) (test code = 2349-9) NEGATIVE [facility]GATIVE [facility] Zszlyuf8193-92-18 10:03:00* Test Item Value Reference Range Interpretation Comments Urine Ketones (test code = 08912-2) NEGATIVE [facility]GATIVE [facility] [id number] 10:03:00* Test Item Value Reference Range Interpretation Comments Urine Urobilinogen (test code = 59021-2) 0.2 0.2-1 [facility] Blicclmwv5954-28-85 10:03:00* Test Item Value Reference Range Interpretation Comments Urine Bilirubin (test code = 1978-6) [facility]GATIVE [facility]IVE [facility] Wbvhr9275-78-76 10:03:00* Test Item Value Reference Range Interpretation Comments Urine Blood (test code = 57516-7) NEGATIVE NEGATIVE [facility] Xudih9683-59-48 10:03:00* Test Item Value Reference Range Interpretation Comments Urine Color (test code = 5778-6) YELLOW YELLOW [facility] Zezhbfj3166-34-63 10:03:00* Test Item Value Reference Range Interpretation Comments Urine Clarity (test code = 13779-9) CLEAR CLEAR [facility] Specific Ztldvyp2484-14-38 10:03:00 * Test Item Value Reference Range Interpretation Comments Urine Specific [place] (test code = 5811-5) 1.010 1.010-1.02 5 [facility] uI5760-39-54 10:03:00* Test Item Value Reference Range Interpretation Comments Urine pH (test code = 05936-8) 7 5-7 [facility] Leukocyte Cebnyqyx8175-82-75 10:03:00* Test Item Value Reference Range Interpretation Comments Urine Leukocyte Esterase (test code = 5799-2) NEGATIVE NEGATIVE [facility] Jobeusd1087-17-21 10:03:00* Test Item Value Reference Range Interpretation Comments Urine Nitrite (test code = 37730-1) NEGATIVE NEGATIVE [facility] Qynmsjf7258-95-52 10:03:00* Test Item Value Reference Range Interpretation Comments Urine Protein (test code = 5804-0) NEGATIVE NEGATIVE [facility] Glucose (UA)2018-01-18 10:03:00* Test Item Value Reference Range Interpretation Comments Urine Glucose (UA) (test code = 2349-9) NEGATIVE NEGATIVE [facility] Fvlkgqv9376-59-40 10:03:00* Test Item Value Reference Range Interpretation Comments Urine Ketones (test code = 25311-2) NEGATIVE NEGATIVE [facility] Hqfexcqrppuk6972-65-00 10:03:00* Test Item Value Reference Range Interpretation Comments Urine Urobilinogen (test code = 00847-1) 0.2 0.2-1 [facility] Sgaxlonne8936-43-99 10:03:00* Test Item Value Reference Range Interpretation Comments Urine Bilirubin (test code = 1978-6) NEGATIVE NEGATIVE [facility] Ctkoh0614-01-94 10:03:00* Test Item Value Reference Range Interpretation Comments Urine Blood (test code = 97346-1) NEGATIVE NEGATIVE [facility]White Blood Qgiwi9202-42-96 09:51:00* Test Item Value Reference Range Interpretation Comments White Blood Count (test code = 6690-2) 7.17 4.8-10.8 [facility] Blood Vkrwv0064-40-24 09:51:00* Test Item Value Reference Range Interpretation Comments Red Blood Count (test code = 789-8) 4.06 3.6-5.1 [facility]Hemoglobin2018-05-02 09:51:00* Test Item Value Reference Range Interpretation Comments Hemoglobin (test code = 29015-2) 13.4 12.0-16.0 [facility] HospitalHematocrit2018-05-02 09:51:00* Test Item Value Reference Range Interpretation Comments Hematocrit (test code = 4544-3) 38.2 34.2-44.1 [facility] HospitalMean Corpuscular Wvjhlw1987-69-49 09:51:00* Test Item Value Reference Range Interpretation Comments Mean Corpuscular Volume (test code = 787-2) 94.1 81-99 [facility]Mean Corpuscular Avuxwssywo0403-90-07 09:51:00* Test Item Value Reference Range Interpretation Comments Mean Corpuscular Hemoglobin (test code = 785-6) 33.0 28-32 H [facility] HospitalMean Corpuscular Hemoglobin Concent 2018-01-18 09:51:00* Test Item Value Reference Range Interpretation Comments Mean Corpuscular Hemoglobin Concent (test code = 786-4) 35.1 31-35 H [facility] HospitalRed Cell Distribution Bnwzf7274-32-26 09:51:00* Test Item Value Reference Range Interpretation Comments Red Cell Distribution Width (test code = 95877-1) 13.1 11.7 -14.4 [facility] HospitalPlatelet Qngcd5139-47-62 09:51:00* Test Item Value Reference Range Interpretation Comments Platelet Count (test code = 777-3) 317 140-360 [facility] HospitalNeutrophils (%) (Auto)2018-01-18 09:51:00 * Test Item Value Reference Range Interpretation Comments Neutrophils (%) (Auto) (test code = 18972-5) 59.8 38.7-80.0 [facility] HospitalLymphocytes (%) (Auto)2018-01-18 09:51:00 * Test Item Value Reference Range Interpretation Comments Lymphocytes (%) (Auto) (test code = 736-9) 26.8 18.0-39.1 [facility] HospitalMonocytes (%) (Auto)2018-01-18 09:51:00* Test Item Value Reference Range Interpretation Comments Monocytes (%) (Auto) (test code = 5905-5) 10.0 4.4-11.3 [facility] HospitalEosinophils (%) (Auto)2018-01-18 09:51:00 * Test Item Value Reference Range Interpretation Comments Eosinophils (%) (Auto) (test code = 713-8) 2.0 0.0-6.0 [facility]Basophils (%) (Auto)2018-01-18 09:51:00* Test Item Value Reference Range Interpretation Comments Basophils (%) (Auto) (test code = 706-2) 1.3 0.0-1.0 H [facility] HospitalIM GRANULOCYTES %2018-01-18 09:51:00* Test Item Value Reference Range Interpretation Comments IM GRANULOCYTES % (test code = IM GRANULOCYTES %) 0.1 0.0- 1.0 [facility] HospitalNeutrophils # (Auto)2018-01-18 09:51:00* Test Item Value Reference Range Interpretation Comments Neutrophils # (Auto) (test code = 751-8) 4.3 2.1-6.9 [facility] HospitalLymphocytes # (Auto)2018-01-18 09:51:00* Test Item Value Reference Range Interpretation Comments Lymphocytes # (Auto) (test code = 20176-0) 1.9 1.0-3.2 [facility] HospitalMonocytes # (Auto)2018-01-18 09:51:00* Test Item Value Reference Range Interpretation Comments Monocytes # (Auto) (test code = 742-7) 0.7 0.2-0.8 [facility] HospitalEosinophils # (Auto)2018-01-18 09:51:00* Test Item Value Reference Range Interpretation Comments Eosinophils # (Auto) (test code = 711-2) 0.1 0.0-0.4 [facility] HospitalBasophils # (Auto)2018-01-18 09:51:00* Test Item Value Reference Range Interpretation Comments Basophils # (Auto) (test code = 704-7) 0.1 0.0-0.1 [facility] HospitalAbsolute Immature Granulocyte (auto 2018-01-18 09:51:00* Test Item Value Reference Range Interpretation Comments Absolute Immature Granulocyte (auto (chi t code = Absolute Immature Granulocyte (auto) 0.01 0-0.1 [facility] HospitalWhite Blood Uefio6239-02-74 09:51:00* Test Item Value Reference Range Interpretation Comments White Blood Count (test code = 6690-2) 7.17 4.8-10.8 [facility] HospitalRed Blood Wlnnh3461-78-61 09:51:00* Test Item Value Reference Range Interpretation Comments Red Blood Count (test code = 789-8) 4.06 3.6-5.1 [facility] HospitalHemoglobin2018-05-02 09:51:00* Test Item Value Reference Range Interpretation Comments Hemoglobin (test code = 02876-0) 13.4 12.0-16.0 [facility] HospitalHematocrit2018-05-02 09:51:00* Test Item Value Reference Range Interpretation Comments Hematocrit (test code = 4544-3) 38.2 34.2-44.1 [facility] HospitalMean Corpuscular Tnqdvv5323-48-76 09:51:00* Test Item Value Reference Range Interpretation Comments Mean Corpuscular Volume (test code = 787-2) 94.1 81-99 [facility] HospitalMean Corpuscular Zfjnxaoyri3060-62-34 09:51:00* Test Item Value Reference Range Interpretation Comments Mean Corpuscular Hemoglobin (test code = 785-6) 33.0 28-32 H [facility] HospitalMean Corpuscular Hemoglobin Concent 2018-01-18 09:51:00* Test Item Value Reference Range Interpretation Comments Mean Corpuscular Hemoglobin Concent (test code = 786-4) 35.1 31-35 H [facility] HospitalRed Cell Distribution Xtlgi0106-02-99 09:51:00* Test Item Value Reference Range Interpretation Comments Red Cell Distribution Width (test code = 13299-4) 13.1 11.7 -14.4 [facility] HospitalPlatelet Pombm7391-98-21 09:51:00* Test Item Value Reference Range Interpretation Comments Platelet Count (test code = 777-3) 317 140-360 [facility] HospitalNeutrophils (%) (Auto)2018-01-18 09:51:00 * Test Item Value Reference Range Interpretation Comments Neutrophils (%) (Auto) (test code = 35277-9) 59.8 38.7-80.0 [facility] HospitalLymphocytes (%) (Auto)2018-01-18 09:51:00 * Test Item Value Reference Range Interpretation Comments Lymphocytes (%) (Auto) (test code = 736-9) 26.8 18.0-39.1 [facility] HospitalMonocytes (%) (Auto)2018-01-18 09:51:00* Test Item Value Reference Range Interpretation Comments Monocytes (%) (Auto) (test code = 5905-5) 10.0 4.4-11.3 [facility] HospitalEosinophils (%) (Auto)2018-01-18 09:51:00 * Test Item Value Reference Range Interpretation Comments Eosinophils (%) (Auto) (test code = 713-8) 2.0 0.0-6.0 [facility] HospitalBasophils (%) (Auto)2018-01-18 09:51:00* Test Item Value Reference Range Interpretation Comments Basophils (%) (Auto) (test code = 706-2) 1.3 0.0-1.0 H [facility] HospitalIM GRANULOCYTES %2018-01-18 09:51:00* Test Item Value Reference Range Interpretation Comments IM GRANULOCYTES % (test code = IM GRANULOCYTES %) 0.1 0.0- 1.0 [facility] HospitalNeutrophils # (Auto)2018-01-18 09:51:00* Test Item Value Reference Range Interpretation Comments Neutrophils # (Auto) (test code = 751-8) 4.3 2.1-6.9 [facility] HospitalLymphocytes # (Auto)2018-01-18 09:51:00* Test Item Value Reference Range Interpretation Comments Lymphocytes # (Auto) (test code = 33391-3) 1.9 1.0-3.2 [facility] HospitalMonocytes # (Auto)2018-01-18 09:51:00* Test Item Value Reference Range Interpretation Comments Monocytes # (Auto) (test code = 742-7) 0.7 0.2-0.8 [facility] HospitalEosinophils # (Auto)2018-01-18 09:51:00* Test Item Value Reference Range Interpretation Comments Eosinophils # (Auto) (test code = 711-2) 0.1 0.0-0.4 [facility] HospitalBasophils # (Auto)2018-01-18 09:51:00* Test Item Value Reference Range Interpretation Comments Basophils # (Auto) (test code = 704-7) 0.1 0.0-0.1 [facility] HospitalAbsolute Immature Granulocyte (auto 2018-01-18 09:51:00* Test Item Value Reference Range Interpretation Comments Absolute Immature Granulocyte (auto (chi t code = Absolute Immature Granulocyte (auto) 0.01 0-0.1 [facility] HospitalHemoglobin A1c Umsufja2532-58-20 07:09:00 * Test Item Value Reference Range Interpretation Comments Hemoglobin A1c Percent (test code = Hemoglobin A1c Percent) 5.1 4.0-7.0 [facility] HospitalTriglycerides Iuewj2562-08-06 07:09:00* Test Item Value Reference Range Interpretation Comments Triglycerides Level (test code = 2571-8) 50 0-149 [facility] HospitalCholesterol Mziks1751-74-06 07:09:00* Test Item Value Reference Range Interpretation Comments Cholesterol Level (test code = 2093-3) 178 0-199 Less than 200 mg/dL Low Pmyg831 - 239 mg/dL Borderline Qwxj453 m g/dl and greater High Risk [facility] HospitalLDL Alceqzttzos8869-71-79 07:09:00* Test Item Value Reference Range Interpretation Comments LDL Cholesterol (test code = 2089-1) 99 60-130 [facility] HospitalHDL Iuziapbnknq9633-47-40 07:09:00* Test Item Value Reference Range Interpretation Comments HDL Cholesterol (test code = 2085-9) 69 40-60 H [facility] HospitalCholesterol/HDL Qktiw3933-54-93 07:09:00 * Test Item Value Reference Range Interpretation Comments Cholesterol/HDL Ratio (test code = 9830-1) 2.6 3.0-3.6 L [facility] HospitalHemoglobin A1c Seimkyn7027-07-88 07:09:00 * Test Item Value Reference Range Interpretation Comments Hemoglobin A1c Percent (test code = Hemoglobin A1c Percent) 5.1 4.0-7.0 [facility] HospitalTriglycerides Qthcx2104-94-27 07:09:00* Test Item Value Reference Range Interpretation Comments Triglycerides Level (test code = 2571-8) 50 0-149 [facility] HospitalCholesterol Ejlbi2414-43-54 07:09:00* Test Item Value Reference Range Interpretation Comments Cholesterol Level (test code = 2093-3) 178 0-199 Less than 200 mg/dL Low Ileq155 - 239 mg/dL Borderline Rxui595 m g/dl and greater High Risk [facility] HospitalLDL Pbroyvhzikx6175-12-19 07:09:00* Test Item Value Reference Range Interpretation Comments LDL Cholesterol (test code = 2089-1) 99 60-130 [facility] HospitalHDL Iqfuklykuuu5479-56-40 07:09:00* Test Item Value Reference Range Interpretation Comments HDL Cholesterol (test code = 2085-9) 69 40-60 H [facility] HospitalCholesterol/HDL Pbcfk4972-09-03 07:09:00 * Test Item Value Reference Range Interpretation Comments Cholesterol/HDL Ratio (test code = 9830-1) 2.6 3.0-3.6 L [facility] HospitalInfluenza Virus Types A,B Antigen 2017-10-07 20:35:00* Test Item Value Reference Range Interpretation Comments Influenza Virus Types A,B Antigen (test code = 35126-5) NEGATIVE NEGATIVE [facility] HospitalInfluenza Virus Types A,B Antigen 2017-10-07 20:35:00* Test Item Value Reference Range Interpretation Comments Influenza Virus Types A,B Antigen (test code = 20760-7) NEGATIVE NEGATIVE [facility] HospitalB-Type Natriuretic Hvywzjy4610-63-35 16:14:00* Test Item Value Reference Range Interpretation Comments B-Type Natriuretic Peptide (test code = 62593-9) 14.5 0-100 [facility] HospitalB-Type Natriuretic Dtjvmjq2539-44-77 16:14:00* Test Item Value Reference Range Interpretation Comments B-Type Natriuretic Peptide (test code = 63812-8) 14.5 0-100 [facility] HospitalProthrombin Kgnc9337-56-61 15:56:00* Test Item Value Reference Range Interpretation Comments Prothrombin Time (test code = 5902-2) 11.7 11.9-14.5 L [facility] HospitalProthromb Time International Ratio 2017-10-07 15:56:00* Test Item Value Reference Range Interpretation Comments Prothromb Time International Ratio (test code = 6301-6) 0.82 Oral Anticoagulant Therapy INR Values:1. Low Intensity Therapy 1.5 - 2.02 . Moderate Intensity Therapy 2.0 - 3.03. High Intensity Therapy(1) 2.5 - 3. 54. High Intensity Therapy(2) 3.0 - 4.05. Panic Value INR > 5.0 [facility] HospitalActivated Partial Thromboplast Time 2017-10-07 15:56:00* Test Item Value Reference Range Interpretation Comments Activated Partial Thromboplast Time (test code = 27675-0) 25.8 23.8-35.5 [facility] HospitalProthrombin Dzre4342-37-68 15:56:00* Test Item Value Reference Range Interpretation Comments Prothrombin Time (test code = 5902-2) 11.7 11.9-14.5 L [facility] HospitalProthromb Time International Ratio 2017-10-07 15:56:00* Test Item Value Reference Range Interpretation Comments Prothromb Time International Ratio (test code = 6301-6) 0.82 Oral Anticoagulant Therapy INR Values:1. Low Intensity Therapy 1.5 - 2.02 . Moderate Intensity Therapy 2.0 - 3.03. High Intensity Therapy(1) 2.5 - 3. 54. High Intensity Therapy(2) 3.0 - 4.05. Panic Value INR > 5.0 [facility] HospitalActivated Partial Thromboplast Time 2017-10-07 15:56:00* Test Item Value Reference Range Interpretation Comments Activated Partial Thromboplast Time (test code = 54587-6) 25.8 23.8-35.5 [facility] HospitalCT [facility] [address] [place] [address] Patient Name: ISAI VEGA MR #: [id number] : 1960 Age/Sex: 57/F Req #: [id number] Adm Physician: Ordered by: JOSE CRISTINA MD Report #: [id number] Location: ER Room/Bed: Procedure: [id number] CT/CT ABDOMEN/PELVIS JCARLOS wu Date: 01/18/18 Exam Time: 1030 REPORT STATUS: Signed PROCEDURE: CT ABDOMEN AND PELVIS WITHOUT CONTRAST TECHNIQUE: The abdomen and pelvis were scanned utilizing a multidetector helical scanner from the diaphragm to the lesser trochanter. No IV contrast was administered as per physician request. Coronal and sagittal multiplanar reformations were obtained. COMPARISON: None. INDICATIONS: LEFT FLANK PAIN FI NDINGS: ABSENCE OF INTRAVENOUS CONTRAST DECREASES SENSITIVITY FOR DETECTION OF FOCAL LESIONS AND VASCULAR PATHOLOGY. LOWER THORAX: Normal. HEPAT OBILIARY: No focal hepatic lesions. No biliary ductal dilatation. Cholecyste ctomy clips. SPLEEN: No spleen is visualized. Splenule is present in the left upper quadrant, series 3 image 31. PANCREAS: No focal masses or ductal dila tation. ADRENALS: No adrenal nodules. KIDNEYS/URETERS: No hydronephrosis , stones, or solid mass lesions. PELVIC ORGANS/BLADDER: Hysterectomy. No ovari es are visualized. Normal urinary bladder. PERITONEUM / RETROPERITONEUM : No free air or fluid. LYMPH NODES: No lymphadenopathy. VESSELS: Unremarkab le. GI TRACT: Postoperative changes of the stomach. No distention or wall thickening. No appendix is visualized. Multiple diverticuli are present in the descending and sigmoid colon, without adjacent soft tissue inflammatory changes. BONES AND SOFT TISSUES: Unremarkable. Degenerative changes of the thoracic spine. IMPRESSION: No acute abnormality of the abdomen and pelvis. Diverticulosis without evidence of diverticulitis. Dictate d by: Paramjit Jackson M.D. on 01/18/2018 at 11:07 Electronically approved by : Paramjit Jackson M.D. on 01/18/2018 at 11:07 Dictated By: PARAMJIT PERSON MD 1105 Transcribed By : KEYONNA on 01/18/18 1107 COPY TO: JOSE CRISTINA MD CHEST 2 VIEWS [place] [address] Patient Name: ISAI VEGA MR #: [id number] : 1960 Age/Sex: 57/F Req #: [id number] Adm Physician: Ordered by: BRENDEN STONE MD Report #: [id number] Location: ER Room/Bed: Procedure: [id number] DX/CHEST 2 VIEWS Exam Date: Exam Time: 1550 REPORT STATUS: Signed PROCEDURE: Frontal and lateral views of the chest. COMPARISON: None. INDICATIONS: SOB, LIGHTHEADED FINDINGS: Lines/tubes: None. Lungs: The lungs are well inflated and clear. There is no evidence of pne umonia or pulmonary edema. Pleura: There is no pleural effusion or pneumo thorax. Heart and mediastinum: The heart and the mediastinum are normal. Bones: No acute bony abnormality. IMPRESSION: 1. No acute c ardiopulmonary abnormality. Arden García M.D. Dictated by: Arden García M.D. on 10/07/2017 at 16:30 Electronically approved by: Arden García M.D. on 10/07/2017 at 16:30 Dictated By: Maddy GARCÍA MD 1630 Transcribed By: KEYONNA on 10/07/17 1630 COPY TO: BRENDEN STONE MD
[2020-02-19] MEDS ORDERED: ONDANSETRON HCL INJ 2MG/ML 2ML 2 MG/ML VIAL IV STA (01:28)
[2020-02-19] MEDS ORDERED: SODIUM CHLORIDE 0.9% 1000ML 1,000 ML IV STA (01:28)
[2020-02-19] MEDS ORDERED: MORPHINE SULFATE INJ 4 MG/ML INJ 1ML IV STA (01:28)
[2020-02-19] MEDS ORDERED: ASPIRIN 81 MG CHEW TAB PO ONE (01:30)
--- NOTE | 2020-02-19 01:46 | Emergency Department Note ---
History of Present Illnes History of Present Illness Chief Complaint: Chest Pain History of Present Illness This is a 59 year old female presents to the ED for week long h/o subs ternal dull CP which radiates to her back and L arm. (+) SOB but denies n/v. Onset (how long ago): week(s) Radiation: neck, extremity Severity: moderate Onset quality: gradual Duration (how long): week(s) (1) Timing of current episode: intermittent Progression: waxing and waning Chronicity: new Context: recent illness Relieving factors: none Exacerbating factors: none Associated symptoms: shortness of breath Past Medical/Family History Physician Review I have reviewed the patient's past medical and family history. Any updates have been documented here. 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 Physical Exam Related Data Allergies: Coded Allergies: Penicillins (Verified Allergy, Unknown, RASH, 04/18/18) celecoxib (Verified Allergy, Unknown, BURNING, 04/18/18) codeine (Verified Allergy, Unknown, NAUSEA, 04/18/18) Physical Exam CONSTITUTIONAL Constitutional: well-developed, well-nourished, obese HENT HENT: normocephalic, atraumatic, oropharynx clear/moist, nose normal HENT L/R: left ext ear normal, right ext ear normal EYES Eyes: PERRL, conjunctivae normal NECK Neck: ROM normal PULMONARY Pulmonary: effort normal, breath sounds normal CARDIOVASCULAR Cardiovascular: regular rhythm, heart sounds normal, capillary refill normal, normal rate GASTROINTESTINAL Abdominal: soft, nontender, bowel sounds normal GENITOURINARY Genitourinary: exam deferred SKIN Skin: warm, dry MUSCULOSKELETAL Musculoskeletal: ROM normal NEUROLOGICAL Neurological: alert, oriented x 3, no gross motor or sensory deficits PSYCHOLOGICAL Psychological: mood/affect normal, judgement normal Results Laboratory Lab results reviewed: Yes Laboratory comments CBC : wnl CMP: wnl Cardiac Enzymes : wnl D-Dimer 0.41 Imaging Imaging results reviewed: Yes Impressions [place] [address] Patient Name: ISAI VEGA MR #: [id number] : 1960 Age/Sex: 59/F Req #: [id number] Adm Physician: Ordered by: JONNY CARPIO DO Report #: [id number] Location: ER Room/Bed: Procedure: [id number] DX/CHEST SINGLE (NOT PORTABLE) Exam Date: 02/19/20 Exam Time: 226 REPORT STATUS: Signed EXAMINATION: CHEST SINGLE (NOT PORTABLE) COMPARISON: Chest x-ray 06/08/2019 INDICATION: Chest pain ^ERMD ORDER ^[id number] ^0227 ^Y DISCUSSION: Frontal view of the chest obtained at 0227 hours. HEART AND MEDIASTINUM: The cardiomediastinal silhouette is unremarkable. LINES: None. LUNGS/PLEURA: The lungs are well inflated and clear. No pneumonia or pulmonary edema. No pleural effusion or pneumothorax. BONES AND SOFT TISSUES: No focal osseous lesion. The soft tissues are normal. IMPRESSION: No acute cardiopulmonary disease. Signed by: Dr. Dayday Uribe MD on 02/19/2020 2:41 AM Dictated By: DAYDAY URIBE MD 0 Transcribed By: PAIGE on 02/19/20240 COPY TO: JONNY CARPIO DO~ [place] [address] Patient Name: ISAI VEGA MR #: [id number] : 1960 Age/Sex: 59/F Req #: [id number] [facility] Physician: Ordered by: JONNY CARPIO DO Report #: [id number] Location: ER Room/Bed: Procedure: CT/CT CHEST W Exam Date: 02/19/20 Exam Time: 429 REPORT STATUS: Signed CT chest pulmonary embolism protocol CPT code: 44274 INDICATION: Left upper extremity, left neck and neck pain ^chest pain , r/o PE ^[id number] ^0430 TECHNIQUE: Thin collimation axial images obtained through the level of the pulmonary arteries with additional imaging through the chest following the uneventful administration of 100 cc of low osmolar, nonionic intravenous contrast. Images reconstructed into coronal and sagittal MIPs for complete evaluation of the tortuous and overlapping pulmonary vascular structures and to reduce patient radiation dose. RADIATION DOSE: Total DLP: 599.3 mGy*cm Estimated effective dose: (DLP x 0.015 x size factor) mSv CTDIvol has been reviewed. It is below the limits set by the Radiation Protocol Committee (RPC). Dose reduction techniques used: Automated exposure control, adjustment of the mAs and/or kVp according to patient size, standardized low-dose protocol, and/or iterative reconstruction technique. COMPARISON: CTA chest 06/16/2019. CT abdomen/pelvis 01/18/2018. FINDINGS: Pulmonary artery: No filling defects are appreciated within the main, left, right, lobar or visualized segmental pulmonary arteries to suggest embolism. Aorta: The thoracic aorta is not aneurysmal. No evidence for dissection. Lymph nodes: No enlarged axillary, supraclavicular, mediastinal, or hilar lymph nodes. Thyroid: Visualized portions are normal. Mediastinum: The heart is normal in size. No pericardial effusion. Small amount of air distends the distal esophagus. Lungs: Right Lung: Mild air trapping. No infiltrates. Nodule in superior segment of the lower lobe measures 5 mm and is stable. Left Lung: Mild air trapping. Nodule in the anterior upper lobe measures 4 mm and is stable. Airways: Mild tracheobronchomalacia. Pleura: No pleural effusions or pleural based mass. No pneumothorax. 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 Visualized bowel is not dilated. Scattered diverticula in the left colon. Lobulated soft tissue mass in the posterior left upper quadrant near the diaphragm measures 4.1 x 2.2 cm and is stable. This may represent a splenule. Bones: Mild degenerative changes of the spine. The osseous structures are intact. No focal osseous lesion. IMPRESSION: 1. No evidence of pulmonary embolus or dissection. 2. Mild air trapping suggestive of small airways disease. Mild tracheobronchomalacia. 3. Stable pulmonary nodules. Signed by: Dr. Dayday Uribe MD on 02/19/2020 4:59 AM Dictated By: DAYDAY URIBE MD 8 Transcribed By: PAIGE on 02/19/20458 COPY TO: JONNY CARPIO DO~ Procedures 12 Lead ECG Interpretation Junior Project Coordinator: Interpreted by ED physician Date: Feb 19, 2020 Time: 01:52 Prior DEVELOPMENT MANAGER tracings: reviewed Rhythm: sinus rhythm Rate: normal QRS axis: normal ST segments normal: Yes T waves normal: Yes Clinical Impression: normal ECG Assessment & Plan Assessment & Plan Final Impression: (1) Chest pain Assessment & Plan EKG , cardiac enzymes reviewed with patient. CTS chest negative for PE. Patient to be discharged to home with f/u with cardiology Depart Disposition: HOME, SELF-CARE Last Vital Signs Date Time Temp Pulse Resp B/P (MAP) Pulse Ox O2 Delivery O2 Flow Rate FiO2 02/19/20 05:21 79 18 98 02/19/20 05:16 159/91 02/19/20 01:02 97.8 Home Meds Active Scripts Sucralfate (CARAFATE) 1 Gm Tablet, 1 GM PO ACHS for 30 Days Prov:NARDA YUSUF MD 10/09/17 Metoprolol Tartrate (LOPRESSOR) 25 Mg Tab, 25 MG PO Q12H for 30 Days, TAB Prov:NARDA YUSUF MD 10/09/17 [Calcium Carbonate 500MG Chew] 500 MG CHEW No Conflict Check, 500 MG PO TID for 30 Days Prov:NARDA YUSUF MD 10/09/17 Aspirin (ASPIRIN EC) 81 Mg Tablet.dr, 81 MG PO QAM for 30 Days Prov:NARDA YUSUF MD 10/09/17 Reported Medications Multivitamin With Minerals (HAIR, SKIN & NAILS) 1 Each Tablet, 1 TAB PO DAILY 07/11/17 Vitamin E (VITAMIN E) 400 Unit Capsule, 1000 MG PO DAILY 07/11/17 Ascorbic Acid (VITAMIN C) 1,000 Mg Tablet, 1000 MG PO DAILY 07/11/17 Multivitamin (MULTI-VITAMIN DAILY) 1 Each Tablet, 1 TAB PO DAILY 07/11/17 Gabapentin (GABAPENTIN) 100 Mg Capsule, PO DAILY 07/11/17 Pantoprazole Sodium* (PROTONIX) 40 Mg Tablet.dr, 40 MG PO DAILY, TAB 07/11/17 Fluoxetine Hcl (PROZAC) 20 Mg Capsule, 40 MG PO DAILY, #30 TAB 07/11/17 Medications in the ED Sodium Chloride 1,000 ml @ 0 mls/hr Q0M STAT IV ; Start 02/19/20 at 01:28; Stop 02/19/20 at 01:29 Morphine Sulfate 4 mg ONCE STAT IV ; Start 02/19/20 at 01:28; Stop 02/19/20 at 01:29 Ondansetron HCl 4 mg ONCE STAT IV ; Start 02/19/20 at 01:28; Stop 02/19/20 at 01:29 Aspirin 81 mg PRN ONCE PO ; Start 02/19/20 at 01:30; Stop 02/19/20 at 01:31 JONNY CARPIO DO Feb 19, 2020 01:46
[2020-02-19 02:25] LABS: BASOPHILS # (AUTO) 0.1 (0.0-0.1); BASOPHILS % 1.3 % (0.0-1.0); EOSINOPHILS # (AUTO) 0.1 (0.0-0.4); EOSINOPHILS % 1.9 % (0.0-6.0); HEMATOCRIT 41.1 % (34.2-44.1); HEMOGLOBIN 13.9 g/dL (12.0-16.0); LYMPHOCYTES # (AUTO) 1.9 (1.0-3.2); MEAN CORPUSCULAR HEMOGLOBIN 32.4 pg (28-32); MEAN CORPUSCULAR HGB CONC 33.8 g/dL (31-35); MEAN CORPUSCULAR VOLUME 95.8 fL (81-99); MONOCYTES # (AUTO) 0.7 (0.2-0.8); MONOCYTES % 10.5 % (4.4-11.3); NEUTROPHILS # (AUTO) 3.5 (2.1-6.9); PLATELET COUNT 314 x10e3/uL (140-360); RED BLOOD COUNT 4.29 x10e6/uL (3.6-5.1); RED CELL DISTRIBUTION WIDTH 13.7 % (11.7-14.4)
--- NOTE | 2020-02-19 02:44 | Diagnostic Imaging Report ---
EXAMINATION: CHEST SINGLE (NOT PORTABLE) COMPARISON: Chest x-ray 06/08/2019 INDICATION: Chest pain ^ERMD ORDER ^[id number] ^0227 ^Y DISCUSSION: Frontal view of the chest obtained at 0227 hours. HEART AND MEDIASTINUM: The cardiomediastinal silhouette is unremarkable. LINES: None. LUNGS/PLEURA: The lungs are well inflated and clear. No pneumonia or pulmonary edema. No pleural effusion or pneumothorax. BONES AND SOFT TISSUES: No focal osseous lesion. The soft tissues are normal. IMPRESSION: No acute cardiopulmonary disease. Signed by: Dr. Jp Uribe MD on 02/19/2020 2:41 AM
[2020-02-19 02:47] LABS: ALANINE AMINOTRANSFERASE 25 IU/L (0-55); ALBUMIN 3.6 g/dL (3.5-5.0); ALBUMIN/GLOBULIN RATIO 0.9 (0.8-2.0); ALKALINE PHOSPHATASE 106 IU/L (40-150); ANION GAP 12.7 mmol/L (8-16); BLOOD UREA NITROGEN 18 mg/dL (7-26); BUN/CREATININE RATIO 20 (6-25); CALCIUM 9.7 mg/dL (8.4-10.2); CARBON DIOXIDE 29 mmol/L (22-29); CHLORIDE 101 mmol/L (98-107); CREATINE KINASE 76 IU/L (29-168); CREATININE, SERUM 0.88 mg/dL (0.57-1.11); EST GLOMERULAR FILTRATION RATE > 60 ML/MIN (60-); GLUCOSE 96 mg/dL (74-118); POTASSIUM 4.7 mmol/L (3.5-5.1); SODIUM 138 mmol/L (136-145)
--- NOTE | 2020-02-19 04:14 | NUR ---
Patient c/o chest pain. Repeat EKG done and given to Dr. Verdugo.
[2020-02-19] MEDS ORDERED: MORPHINE SULFATE INJ 4 MG/ML INJ 1ML IV PRN (04:15)
[2020-02-19] MEDS ORDERED: SODIUM CHLORIDE 0.9% 50ML 50 ML ONE (04:17)
[2020-02-19] MEDS ORDERED: IOPAMIDOL 370 MG/ML 200 ML INFUS..BTL INJ ONE (04:17)
--- NOTE | 2020-02-19 05:02 | Diagnostic Imaging Report ---
CT chest pulmonary embolism protocol CPT code: 34057 INDICATION: Left upper extremity, left neck and neck pain ^chest pain , r/o PE ^[id number] ^0430 TECHNIQUE: Thin collimation axial images obtained through the level of the pulmonary arteries with additional imaging through the chest following the uneventful administration of 100 cc of low osmolar, nonionic intravenous contrast. Images reconstructed into coronal and sagittal MIPs for complete evaluation of the tortuous and overlapping pulmonary vascular structures and to reduce patient radiation dose. RADIATION DOSE: Total DLP: 599.3 mGy*cm Estimated effective dose: (DLP x 0.015 x size factor) mSv CTDIvol has been reviewed. It is below the limits set by the Radiation Protocol Committee (RPC). Dose reduction techniques used: Automated exposure control, adjustment of the mAs and/or kVp according to patient size, standardized low-dose protocol, and/or iterative reconstruction technique. COMPARISON: CTA chest 06/16/2019. CT abdomen/pelvis 01/18/2018. FINDINGS: Pulmonary artery: No filling defects are appreciated within the main, left, right, lobar or visualized segmental pulmonary arteries to suggest embolism. Aorta: The thoracic aorta is not aneurysmal. No evidence for dissection. Lymph nodes: No enlarged axillary, supraclavicular, mediastinal, or hilar lymph nodes. Thyroid: Visualized portions are normal. Mediastinum: The heart is normal in size. No pericardial effusion. Small amount of air distends the distal esophagus. Lungs: Right Lung: Mild air trapping. No infiltrates. Nodule in superior segment of the lower lobe measures 5 mm and is stable. Left Lung: Mild air trapping. Nodule in the anterior upper lobe measures 4 mm and is stable. Airways: Mild tracheobronchomalacia. Pleura: No pleural effusions or pleural based mass. No pneumothorax. 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 Visualized bowel is not dilated. Scattered diverticula in the left colon. Lobulated soft tissue mass in the posterior left upper quadrant near the diaphragm measures 4.1 x 2.2 cm and is stable. This may represent a splenule. Bones: Mild degenerative changes of the spine. The osseous structures are intact. No focal osseous lesion. IMPRESSION: 1. No evidence of pulmonary embolus or dissection. 2. Mild air trapping suggestive of small airways disease. Mild tracheobronchomalacia. 3. Stable pulmonary nodules. Signed by: Dr. Jp Uribe MD on 02/19/2020 4:59 AM
[2020-02-19 05:21] VITALS: BP 159/91
== END 2020-02-19 05:28 | disposition home or self-care (01) ==
LOC: ER 00:53
DX: R06.02 Shortness of breath (principal); R07.9 Chest pain, unspecified; K21.9 Gastro-esophageal reflux disease without esophagitis; F41.9 Anxiety disorder, unspecified; F32.9 Major depressive disorder, single episode, unspecified; Z98.84 Bariatric surgery status; Z98.0 Intestinal bypass and anastomosis status
CPT/HCPCS: 36415; 71045; 71260; 80053; 82550; 82553; 83880; 84484; 85025; 85379; 93005; 99284; J2270; J2405; J7030; Q9967

== ENCOUNTER 2023-02-18 13:48 | Inpatient (IN) | payer OTHER ==
[~2023-02-18] VITALS: Ht 160 cm; Wt 113.4 kg
[2023-02-18 14:08] LABS: BASOPHILS # (AUTO) 0.1 (0.0-0.1); EOSINOPHILS # (AUTO) 0.2 (0.0-0.4); EOSINOPHILS % 3.8 % (0.0-6.0); HEMATOCRIT 40.5 % (34.2-44.1); HEMOGLOBIN 13.7 g/dL (12.0-16.0); LYMPHOCYTES # (AUTO) 2.4 (1.0-3.2); LYMPHOCYTES % 39.5 % (18.0-39.1); MEAN CORPUSCULAR HEMOGLOBIN 33.1 pg (28-32); MEAN CORPUSCULAR HGB CONC 33.8 g/dL (31-35); MEAN CORPUSCULAR VOLUME 97.8 fL (81-99); MONOCYTES # (AUTO) 0.8 (0.2-0.8); MONOCYTES % 12.3 % (4.4-11.3); NEUTROPHILS # (AUTO) 2.6 (2.1-6.9); NEUTROPHILS % 42.2 % (38.7-80.0); PLATELET COUNT 311 x10e3/uL (140-360); RED BLOOD COUNT 4.14 x10e6/uL (3.6-5.1); RED CELL DISTRIBUTION WIDTH 13.1 % (11.7-14.4)
[2023-02-18 14:25] LABS: ALBUMIN 3.8 g/dL (3.5-5.0); ALBUMIN/GLOBULIN RATIO 1.1 (0.8-2.0); ANION GAP 11.1 mmol/L (8-16); CALCIUM 9.3 mg/dL (8.4-10.2); CREATININE, SERUM 0.76 mg/dL (0.57-1.11); POTASSIUM 4.1 mmol/L (3.5-5.1)
[2023-02-18] MEDS ORDERED: ASPIRIN 325 MG TAB PO ONE (14:30)
[2023-02-18] MEDS ORDERED: ASPIRIN 81 MG CHEW TAB PO ONE (16:45)
[2023-02-18] MEDS ORDERED: ONDANSETRON HCL INJ 2MG/ML 2ML 2 MG/ML VIAL IV PRN (16:45)
[2023-02-18] MEDS ORDERED: SODIUM CHLORIDE FLUSH 10 ML SYR INJ PRN (16:45)
[2023-02-18] MEDS: HYDROCODONE/APAP 5MG-325MG TAB PO PRN (18:01)
[2023-02-18 18:10] VITALS: BP 140/72; PULSE 72; RESP 16; TEMP 98.7; O2SAT 100
[2023-02-18 18:23] VITALS: BP 140/72; PULSE 72; RESP 16; TEMP 98.7; O2SAT 100
[2023-02-18 18:33] VITALS: BP 140/72; PULSE 72; RESP 16; TEMP 97.9; O2SAT 100
[2023-02-18] MEDS ORDERED: FAMOTIDINE40 MG PO (18:50)
[2023-02-18 20:00] VITALS: BP 134/76; PULSE 67; RESP 18; TEMP 97.8; O2SAT 98
[2023-02-18] MEDS: SUCRALFATE 1 GM TAB PO SCH (21:59)
[2023-02-18 22:42] LABS: CREATINE KINASE 232 IU/L (29-168)
[2023-02-18] MEDS: Morphine 4mg INJECTION 4 MG/ML INJ IV PRN (23:37)
[2023-02-19] VITALS (8 sets, daily range): BP systolic 100–128; BP diastolic 52–76; PULSE 63–76; RESP 18–21; TEMP 97.5–98.8; O2SAT 97–100
[2023-02-19 05:33] LABS: BASOPHILS # (AUTO) 0.1 (0.0-0.1); BASOPHILS % 1.7 % (0.0-1.0); EOSINOPHILS # (AUTO) 0.2 (0.0-0.4); EOSINOPHILS % 3.5 % (0.0-6.0); HEMATOCRIT 37.7 % (34.2-44.1); LYMPHOCYTES # (AUTO) 2.9 (1.0-3.2); MEAN CORPUSCULAR HEMOGLOBIN 33.1 pg (28-32); MEAN CORPUSCULAR HGB CONC 34.5 g/dL (31-35); MEAN CORPUSCULAR VOLUME 95.9 fL (81-99); MONOCYTES # (AUTO) 0.8 (0.2-0.8); MONOCYTES % 13.2 % (4.4-11.3); NEUTROPHILS % 33.4 % (38.7-80.0); PLATELET COUNT 306 x10e3/uL (140-360); RED BLOOD COUNT 3.93 x10e6/uL (3.6-5.1); RED CELL DISTRIBUTION WIDTH 12.5 % (11.7-14.4)
[2023-02-19 05:57] LABS: ANION GAP 11.9 mmol/L (8-16); CALCIUM 9.3 mg/dL (8.4-10.2); CREATININE, SERUM 0.67 mg/dL (0.57-1.11); POTASSIUM 3.9 mmol/L (3.5-5.1)
[2023-02-19] MEDS: Morphine 4mg INJECTION 4 MG/ML INJ IV PRN ×2 (06:10→10:20)
[2023-02-19 06:19] LABS: CREATINE KINASE 90 IU/L (29-168)
[2023-02-19] MEDS: FLUOXETINE HCL 20 MG CAP PO SCH (08:27)
[2023-02-19] MEDS: PANTOPRAZOLE SOD 40 MG TABEC PO SCH (08:27)
[2023-02-19] MEDS: GABAPENTIN 100 MG CAP PO SCH (08:27)
[2023-02-19] MEDS: SUCRALFATE 1 GM TAB PO SCH ×4 (08:27→19:24)
[2023-02-19] MEDS: MULTIVITAMINS/MINERALS TAB PO SCH (08:27)
[2023-02-19] MEDS: ASCORBIC ACID 500 MG TAB PO SCH (08:28)
[2023-02-19] MEDS: ASPIRIN 81 MG ENTERIC COATED PO SCH (09:00)
[2023-02-19] MEDS ORDERED: ASPIRIN 81 MG ENTERIC COATED PO SCH (09:00)
[2023-02-19 13:54] LABS: CREATINE KINASE 98 IU/L (29-168)
[2023-02-19] MEDS: HYDROCODONE/APAP 5MG-325MG TAB PO PRN ×2 (14:35→19:25)
[2023-02-19] MEDS: Morphine 2mg Syringe 2 MG/ML SYR IV PRN ×2 (17:16→23:13)
[2023-02-20] VITALS (8 sets, daily range): BP systolic 104–128; BP diastolic 57–76; PULSE 65–84; RESP 16–21; TEMP 97.7–98.6; O2SAT 97–100
[2023-02-20] MEDS: Morphine 2mg Syringe 2 MG/ML SYR IV PRN ×4 (05:17→23:56)
[2023-02-20] MEDS: MULTIVITAMINS/MINERALS TAB PO SCH (08:34)
[2023-02-20] MEDS: ASPIRIN 81 MG ENTERIC COATED PO SCH (08:35)
[2023-02-20] MEDS: ASCORBIC ACID 500 MG TAB PO SCH (08:35)
[2023-02-20] MEDS: SUCRALFATE 1 GM TAB PO SCH ×4 (08:35→20:56)
[2023-02-20] MEDS: FLUOXETINE HCL 20 MG CAP PO SCH (08:35)
[2023-02-20] MEDS: HYDROCODONE/APAP 5MG-325MG TAB PO PRN ×3 (08:35→20:56)
[2023-02-20] MEDS: GABAPENTIN 100 MG CAP PO SCH (08:35)
[2023-02-20] MEDS: PANTOPRAZOLE SOD 40 MG TABEC PO SCH (08:35)
[2023-02-20 11:18] LABS: BASOPHILS # (AUTO) 0.1 (0.0-0.1); BASOPHILS % 1.4 % (0.0-1.0); EOSINOPHILS # (AUTO) 0.3 (0.0-0.4); EOSINOPHILS % 3.7 % (0.0-6.0); HEMATOCRIT 40.8 % (34.2-44.1); HEMOGLOBIN 13.6 g/dL (12.0-16.0); LYMPHOCYTES # (AUTO) 2.5 (1.0-3.2); LYMPHOCYTES % 35.3 % (18.0-39.1); MEAN CORPUSCULAR HEMOGLOBIN 33.3 pg (28-32); MEAN CORPUSCULAR HGB CONC 33.3 g/dL (31-35); MONOCYTES % 13.8 % (4.4-11.3); NEUTROPHILS # (AUTO) 3.2 (2.1-6.9); NEUTROPHILS % 45.7 % (38.7-80.0); PLATELET COUNT 295 x10e3/uL (140-360); RED BLOOD COUNT 4.08 x10e6/uL (3.6-5.1); RED CELL DISTRIBUTION WIDTH 12.5 % (11.7-14.4)
[2023-02-20 11:44] LABS: ALBUMIN 3.7 g/dL (3.5-5.0); ALBUMIN/GLOBULIN RATIO 1.1 (0.8-2.0); ANION GAP 12.2 mmol/L (8-16); CREATININE, SERUM 0.75 mg/dL (0.57-1.11); POTASSIUM 4.2 mmol/L (3.5-5.1)
[2023-02-20] MEDS ORDERED: NYSTATIN 15 GM POWDER UD BTL TOP PRN (12:45)
[2023-02-20] MEDS: METHOCARBAMOL 750 MG TAB PO PRN (16:29)
[2023-02-21] VITALS (7 sets, daily range): BP systolic 101–126; BP diastolic 58–90; PULSE 72–90; RESP 18–21; TEMP 97.7–98.5; O2SAT 97–100
[2023-02-21] MEDS: Morphine 2mg Syringe 2 MG/ML SYR IV PRN ×3 (05:55→19:23)
[2023-02-21] MEDS: SUCRALFATE 1 GM TAB PO SCH ×4 (07:30→21:09)
[2023-02-21] MEDS: PANTOPRAZOLE SOD 40 MG TABEC PO SCH (08:04)
[2023-02-21] MEDS: GABAPENTIN 100 MG CAP PO SCH (08:04)
[2023-02-21] MEDS: MULTIVITAMINS/MINERALS TAB PO SCH (08:04)
[2023-02-21] MEDS: ASCORBIC ACID 500 MG TAB PO SCH (08:04)
[2023-02-21] MEDS: ASPIRIN 81 MG ENTERIC COATED PO SCH (08:04)
[2023-02-21] MEDS: FLUOXETINE HCL 20 MG CAP PO SCH (08:04)
[2023-02-21] MEDS ORDERED: REGADENOSON 0.4 MG/5 ML SYR IV ONE (11:09)
[2023-02-21] MEDS: HYDROCODONE/APAP 5MG-325MG TAB PO PRN ×2 (14:45→22:39)
[2023-02-21] MEDS: METHOCARBAMOL 750 MG TAB PO PRN (21:09)
[2023-02-22] VITALS: BP 96/58; PULSE 69; RESP 20; TEMP 98.1; O2SAT 98
[2023-02-22] MEDS: Morphine 2mg Syringe 2 MG/ML SYR IV PRN (02:28)
[2023-02-22 04:00] VITALS: BP 116/54; PULSE 87; RESP 18; TEMP 97.9; O2SAT 100
[2023-02-22] MEDS: ASPIRIN 81 MG ENTERIC COATED PO SCH (08:19)
[2023-02-22] MEDS: SUCRALFATE 1 GM TAB PO SCH (08:19)
[2023-02-22] MEDS: MULTIVITAMINS/MINERALS TAB PO SCH (08:19)
[2023-02-22 08:20] VITALS: BP 107/68; PULSE 94; RESP 18; TEMP 98.2; O2SAT 100
[2023-02-22] MEDS: FLUOXETINE HCL 20 MG CAP PO SCH (08:20)
[2023-02-22] MEDS: PANTOPRAZOLE SOD 40 MG TABEC PO SCH (08:20)
[2023-02-22] MEDS: GABAPENTIN 100 MG CAP PO SCH (08:20)
[2023-02-22] MEDS: ASCORBIC ACID 500 MG TAB PO SCH (08:20)
[2023-02-22] MEDS: HYDROCODONE/APAP 5MG-325MG TAB PO PRN (08:24)
[2023-02-22] MEDS ORDERED: ISOSORBIDE MONONITRATE 30 MG TAB CR PO SCH (09:00)
[2023-02-22 09:21] VITALS: BP 116/54; PULSE 94; RESP 18; TEMP 98.2; O2SAT 100
== END 2023-02-22 11:46 | disposition home or self-care (01) | DRG 313 ==
LOC: ER 13:55 → INTOOBSV 16:41 → ERHOLD 16:41 → MED/SURG2 17:22 → OBSVTOIN 02-21 14:55
PROVIDERS: ADMIT Internal Medicine; ATTEND Internal Medicine
DX: R07.89 Other chest pain (principal); Z68.41 Body mass index [BMI] 40.0-44.9, adult; E66.01 Morbid (severe) obesity due to excess calories; K21.9 Gastro-esophageal reflux disease without esophagitis; F41.9 Anxiety disorder, unspecified; F33.42 Major depressive disorder, recurrent, in full remission; R00.2 Palpitations; G89.29 Other chronic pain; M50.10 Cervical disc disorder with radiculopathy, unspecified cervical region; Z90.3 Acquired absence of stomach [part of]; Z79.82 Long term (current) use of aspirin; Z79.899 Other long term (current) drug therapy; Z90.49 Acquired absence of other specified parts of digestive tract; Z90.81 Acquired absence of spleen; Z82.49 Family history of ischemic heart disease and other diseases of the circulatory system; Z87.891 Personal history of nicotine dependence; Z88.5 Allergy status to narcotic agent; Z88.0 Allergy status to penicillin
CPT/HCPCS: 0223U; 36415; 71045; 72125; 78452; 80048; 80053; 82550; 82553; 84484; 85025; 85379; 93005; 93017; 93306; 99284; A9502; G0378; J2270

== ENCOUNTER 2024-06-17 03:59 | Emergency (ER) | payer OTHER ==
[~2024-06-17] VITALS: Ht 160 cm; Wt 113.4 kg
[~2024-06-17 03:59] MED LIST changes: +FAMOTIDINE40 MG PO
[2024-06-17 04:11] VITALS: TEMP 99.9
[2024-06-17 04:30] LABS: BASOPHILS # (AUTO) 0.1 (0.0-0.1); BASOPHILS % 0.8 % (0.0-1.0); EOSINOPHILS # (AUTO) 0.1 (0.0-0.4); EOSINOPHILS % 0.5 % (0.0-6.0); HEMATOCRIT 40.4 % (34.2-44.1); HEMOGLOBIN 13.7 g/dL (12.0-16.0); LYMPHOCYTES # (AUTO) 2.1 (1.0-3.2); LYMPHOCYTES % 21.5 % (18.0-39.1); MEAN CORPUSCULAR HEMOGLOBIN 33.2 pg (28-32); MEAN CORPUSCULAR HGB CONC 33.9 g/dL (31-35); MEAN CORPUSCULAR VOLUME 97.8 fL (81-99); MONOCYTES # (AUTO) 1.2 (0.2-0.8); NEUTROPHILS # (AUTO) 6.2 (2.1-6.9); NEUTROPHILS % 64.8 % (38.7-80.0); PLATELET COUNT 301 x10e3/uL (140-360); RED BLOOD COUNT 4.13 x10e6/uL (3.6-5.1); RED CELL DISTRIBUTION WIDTH 12.5 % (11.7-14.4); WHITE BLOOD COUNT 9.61 x10e3/uL (4.8-10.8)
[2024-06-17 04:33] LABS: CLARITY,URINE CLOUDY (CLEAR); COLOR,URINE YELLOW (YELLOW); LEUKOCYTE ESTERASE ,URINE TRACE (NEGATIVE); PH,URINE 7.5 (5 - 7)
[2024-06-17 04:34] LABS: BILIRUBIN,URINE NEGATIVE (NEGATIVE); GLUCOSE, URINE NEGATIVE (NEGATIVE); KETONES,URINE NEGATIVE (NEGATIVE); NITRITE,URINE NEGATIVE (NEGATIVE); PROTEIN,URINE DIPSTICK NEGATIVE (NEGATIVE); URINE UROBILINOGEN 1 mg/dL (0.2 - 1)
[2024-06-17 04:41] LABS: BACTERIA,URINE MANY /HPF; EPITHELIAL CELLS,URINE MODERATE /LPF; OTHER CRYSTALS,URINE PRESENT; RENAL EPITHELIAL CELLS,URINE FEW; TRANSITIONAL EPI CELLS,URINE FEW
[2024-06-17] MEDS: SODIUM CHLORIDE 0.9% 1000ML 1,000 ML IV STA (04:41)
[2024-06-17] MEDS: ONDANSETRON HCL INJ 2MG/ML 2ML 2 MG/ML VIAL IV STA (04:42)
[2024-06-17] MEDS: KETOROLAC TROMETHAMINE 30 MG/ML VIAL IV STA (04:42)
[2024-06-17 05:15] LABS: ALBUMIN 3.6 g/dL (3.5-5.0); ALBUMIN/GLOBULIN RATIO 0.9 (0.8-2.0); ANION GAP 13.8 mmol/L (8-16); BILIRUBIN,TOTAL 0.5 mg/dL (0.2-1.2); CALCIUM 9.5 mg/dL (8.4-10.2); CREATININE, SERUM 0.85 mg/dL (0.57-1.11); POTASSIUM 3.8 mmol/L (3.5-5.1); TOTAL PROTEIN 7.5 g/dL (6.5-8.1)
[2024-06-17] MEDS ORDERED: FLOMAX0.4 MG PO (05:45)
[2024-06-17] MEDS ORDERED: KETOROLAC TROME10 MG PO (05:45)
[2024-06-17] MEDS ORDERED: ONDANSETRON ODT4 MG PO (05:45)
[2024-06-17 05:50] VITALS: PULSE 79; RESP 17
[2024-06-17 05:59] VITALS: BP 116/60; O2SAT 99
== END 2024-06-17 06:00 | disposition home or self-care (01) ==
LOC: ER 04:03
DX: R10.32 Left lower quadrant pain (principal); N20.1 Calculus of ureter; K21.9 Gastro-esophageal reflux disease without esophagitis; F41.9 Anxiety disorder, unspecified; F32.A Depression, unspecified; Z98.84 Bariatric surgery status
CPT/HCPCS: 36415; 74176; 80053; 81001; 83690; 85025; 99284; J1885; J2405; J7030